=== PATIENT | male | born 1960 | race Caucasian/White ===

== ENCOUNTER 2023-10-22 15:11 | Inpatient (IN) | payer OTHER, BC, MEDICARE ==
[~2023-10-22] VITALS: Ht 167.6 cm; Wt 93.7 kg
[2023-10-22 15:30] LABS: Basophils # (auto) 0.1 10 ^3/uL (0-0.2); Basophils % (auto) 0.6 % (0.0-2.0); Eosinophils # (auto) 0 10 ^3/uL (0-0.8); Hemoglobin 15.4 g/dL (13.5-17.5); Lymphocytes # (auto) 2.4 10 ^3/uL (0.4-5.4); Monocytes # (auto) 0.8 10 ^3/uL (0-1.3)
[2023-10-22 15:34] LABS: Eosinophils % (auto) 0.3 % (0.0-7.0); Hematocrit 45.4 % (41.0-53.0); Mean Corpuscular Hemoglobin 31.3 pg (28.0-32.0); Mean Corpuscular Volume 92.1 fL (80.0-100.0); Neutrophils # (auto) 7.5 10 ^3/uL (1.6-8.6); Neutrophils % (auto) 70.1 % (37.0-80.0); Nucleated Red Blood Cells % 0.1 %; Red Blood Cells 4.92 10^6/uL (4.5-5.90); Red Cell Distribution Width 13.3 % (11.8-14.3); White Blood Cell 10.7 10^3/uL (4.4-10.8)
[2023-10-22 16:01] LABS: Alanine Aminotransferase 29 U/L (7-40); Albumin 5.2 g/dL (3.2-4.8); Alkaline Phosphatase 42 U/L (46-116); Anion Gap 12 (5-15); Aspartate Aminotransferase 27 U/L (13-40); BUN/Creatinine Ratio 6.6 (10.0-20.0); Bilirubin, Total 0.9 mg/dL (0.2-1.0); Blood Urea Nitrogen 7 mg/dL (9-23); Calcium 10.2 mg/dL (8.5-10.1); Carbon Dioxide 19 mmol/L (20-30); Chloride 107 mmol/L (98-107); Glucose 168 mg/dL (74-106); Potassium 3.5 mmol/L (3.5-5.1); Sodium 138 mmol/L (136-145); Total Protein 7.9 g/dL (5.7-8.2)
[2023-10-22 16:08] LABS: INR 1.08 (0.9-1.15); Partial Thromboplastin Time 28.5 SEC (24.5-34.5); Prothrombin Time 11.3 sec (9.3-11.8)
[2023-10-22] MEDS: IOHEXOL 350 MG/ML 100ML IJ ONE ×2 (17:14)
[2023-10-22] MEDS: MORPHINE SULFATE INJ 2 MG/ml SYRG IV ONE (19:49)
[2023-10-22] MEDS: ONDANSETRON HCL 4 MG/2 ML VIAL IV ONE (19:49)
[2023-10-23] VITALS (8 sets, daily range): BP systolic 130–156; BP diastolic 74–86; PULSE 67–81; RESP 16–18; TEMP 36.7; O2SAT 94–97
[2023-10-23] MEDS ORDERED: MORPHINE SULFATE INJ 2 MG/ml SYRG IV PRN (00:45)
[2023-10-23] MEDS ORDERED: NITROGLYCERIN 0.4 MG SL TAB SL PRN (00:45)
[2023-10-23] MEDS: MORPHINE SULFATE INJ 2 MG/ml SYRG IV PRN (02:37)
[2023-10-23] MEDS: SOD CHL 0.45% WITH 20MEQ KCL 1,000 ML IV ONE (02:42)
[2023-10-23] MEDS ORDERED: FENO1TAB41 PO (03:38)
[2023-10-23] MEDS ORDERED: ALOG1TAB2 PO (03:38)
[2023-10-23] MEDS ORDERED: NITR0.4S29 SL (03:38)
[2023-10-23] MEDS ORDERED: VALS1TAB58 PO (03:38)
[2023-10-23] MEDS ORDERED: CLON0.1T PO (03:38)
[2023-10-23] MEDS ORDERED: AMLO1TAB22 PO (03:38)
[2023-10-23] MEDS ORDERED: ATOR20TA PO (03:38)
[2023-10-23] MEDS ORDERED: OMEP20TA PO (03:38)
[2023-10-23] MEDS ORDERED: METO25TA93 PO (03:38)
[2023-10-23] MEDS ORDERED: PRA1C PO (03:38)
[2023-10-23] MEDS ORDERED: APIX5TAB PO (03:38)
[2023-10-23] MEDS ORDERED: QUET50TA PO (03:38)
[2023-10-23] MEDS ORDERED: METF-1145 PO (03:38)
[2023-10-23] MEDS ORDERED: GLIP5TAB12 PO (03:38)
[2023-10-23] MEDS ORDERED: INSU100I52 IJ (03:38)
[2023-10-23 06:13] LABS: Basophils # (auto) 0 10 ^3/uL (0-0.2); Basophils % (auto) 0.6 % (0.0-2.0); Eosinophils # (auto) 0.1 10 ^3/uL (0-0.8); Eosinophils % (auto) 1.5 % (0.0-7.0); Hematocrit 42.8 % (41.0-53.0); Hemoglobin 14.3 g/dL (13.5-17.5); Lymphocytes # (auto) 1.6 10 ^3/uL (0.4-5.4); Lymphocytes % (auto) 22.9 % (10.0-50.0); Mean Corpuscular Hgb Conc. 33.4 g/dL (32.0-36.0); Mean Corpuscular Volume 92.8 fL (80.0-100.0); Monocytes # (auto) 0.9 10 ^3/uL (0-1.3); Monocytes % (auto) 12.8 % (0.0-12.0); Neutrophils # (auto) 4.3 10 ^3/uL (1.6-8.6); Neutrophils % (auto) 62.2 % (37.0-80.0); Nucleated Red Blood Cells % 0.2 %; Red Blood Cells 4.62 10^6/uL (4.5-5.90); Red Cell Distribution Width 13.5 % (11.8-14.3)
[2023-10-23 06:14] LABS: Alanine Aminotransferase 24 U/L (7-40); Albumin 4.5 g/dL (3.2-4.8); Alkaline Phosphatase 35 U/L (46-116); Anion Gap 6 (5-15); Aspartate Aminotransferase 22 U/L (13-40); BUN/Creatinine Ratio 7.4 (10.0-20.0); Blood Urea Nitrogen 7 mg/dL (9-23); Calcium 9.6 mg/dL (8.5-10.1); Carbon Dioxide 25 mmol/L (20-30); Chloride 111 mmol/L (98-107); Cholesterol 129 mg/dL (< 200); Glucose 123 mg/dL (74-106); HDL Cholesterol 36 mg/dL (40-59); LDL Cholesterol 83 mg/dL (< 100); Potassium 3.7 mmol/L (3.5-5.1); Sodium 142 mmol/L (136-145); Triglycerides 105 mg/dL (< 150)
[2023-10-23 06:15] LABS: Bilirubin, Total 0.8 mg/dL (0.2-1.0); Phosphorus 3.2 mg/dL (2.4-5.1); Total Protein 6.7 g/dL (5.7-8.2)
[2023-10-23] MEDS: INSULIN LISPRO (HUMAN) 100 UNITS/ML ML SC SCH ×2 (06:17→22:00)
[2023-10-23] MEDS: ACCU-CHEK COMFORT CURVE STRIP VI SCH (06:17)
[2023-10-23] MEDS: FLUCONAZOLE 100 MG TAB PO SCH (09:35)
[2023-10-23] MEDS: cefTRIAXone 1GM/50ML D5W 50 ML IV SCH (09:35)
[2023-10-23] MEDS: APIXABAN 5 MG TAB PO SCH (09:36)
[2023-10-23] MEDS: VALSARTAN 80 MG TAB PO ONE ×2 (09:36→09:47)
[2023-10-23] MEDS: METOPROLOL SUCCINATE XL 50 MG TAB PO SCH (09:37)
[2023-10-23] MEDS: CLOTRIMAZOLE 1 % CREAM 15GM TOP SCH (10:49)
[2023-10-23] MEDS: HYDROcodone-ACET 5/325MG TAB PO PRN (17:25)
[2023-10-23] MEDS: ATORVASTATIN 20 MG TAB PO SCH (17:25)
[2023-10-24] VITALS (7 sets, daily range): BP systolic 124–151; BP diastolic 69–89; PULSE 61–72; RESP 16–20; TEMP 97.3–98.4; O2SAT 93–96
[2023-10-25] VITALS (7 sets, daily range): BP systolic 120–141; BP diastolic 60–76; PULSE 55–75; RESP 17–20; TEMP 97.4–98.3; O2SAT 93–98
[2023-10-25] MEDS ORDERED: MAALOX PLUS or MAALOX 30 ML PO PRN
[2023-10-25] MEDS: MAALOX PLUS or MAALOX 30 ML PO ONE (06:43)
[2023-10-25] MEDS: SUCRALFATE 1 GM TAB PO ONE (06:43)
[2023-10-25] MEDS: SUCRALFATE 1 GM TAB PO SCH (06:45)
[2023-10-25] MEDS: PANTOPRAZOLE 40 MG TAB PO SCH (09:52)
[2023-10-25] MEDS ORDERED: TAMS0.4C36 PO (16:46)
[2023-10-26 05:00] VITALS: BP 136/79; PULSE 58; RESP 17; TEMP 98; O2SAT 94
[2023-10-26 06:22] LABS: Basophils # (auto) 0.1 10 ^3/uL (0-0.2); Basophils % (auto) 0.9 % (0.0-2.0); Eosinophils # (auto) 0.2 10 ^3/uL (0-0.8); Eosinophils % (auto) 2.3 % (0.0-7.0); Hemoglobin 14.1 g/dL (13.5-17.5); Lymphocytes # (auto) 2.1 10 ^3/uL (0.4-5.4); Lymphocytes % (auto) 30.3 % (10.0-50.0); Mean Corpuscular Hemoglobin 31.7 pg (28.0-32.0); Mean Corpuscular Hgb Conc. 34.5 g/dL (32.0-36.0); Monocytes # (auto) 0.7 10 ^3/uL (0-1.3); Monocytes % (auto) 10.7 % (0.0-12.0); Neutrophils # (auto) 3.8 10 ^3/uL (1.6-8.6); Neutrophils % (auto) 55.8 % (37.0-80.0); Nucleated Red Blood Cells % 0.2 %; Red Blood Cells 4.46 10^6/uL (4.5-5.90); Red Cell Distribution Width 13.6 % (11.8-14.3); White Blood Cell 6.9 10^3/uL (4.4-10.8)
[2023-10-26 06:31] LABS: Alanine Aminotransferase 24 U/L (7-40); Albumin 4.2 g/dL (3.2-4.8); Alkaline Phosphatase 32 U/L (46-116); Anion Gap 10 (5-15); Aspartate Aminotransferase 18 U/L (13-40); BUN/Creatinine Ratio 9.5 (10.0-20.0); Bilirubin, Total 0.7 mg/dL (0.2-1.0); Blood Urea Nitrogen 9 mg/dL (9-23); Calcium 9.4 mg/dL (8.7-10.4); Carbon Dioxide 21 mmol/L (20-30); Chloride 109 mmol/L (98-107); Glucose 120 mg/dL (74-106); Lipase 38 U/L (12-53); Potassium 3.4 mmol/L (3.5-5.1); Sodium 140 mmol/L (136-145)
[2023-10-26 06:32] LABS: Total Protein 6.5 g/dL (5.7-8.2)
[2023-10-26 06:44] LABS: Amylase < 20 U/L (30-118)
[2023-10-26] MEDS ORDERED: PANT40T PO (06:44)
[2023-10-26] MEDS ORDERED: SUCR1TAB PO (06:44)
[2023-10-26] MEDS ORDERED: FLUC100T34 PO (06:44)
[2023-10-26] MEDS ORDERED: MAA30LQ GT (06:44)
[2023-10-26] MEDS ORDERED: METF-1145 PO (06:44)
[2023-10-26] MEDS ORDERED: APIX5TAB PO (06:44)
[2023-10-26] MEDS ORDERED: TAMS0.4C36 PO (06:44)
[2023-10-26] MEDS ORDERED: ATOR20TA PO (06:44)
[2023-10-26] MEDS ORDERED: VALS1TAB58 PO (06:44)
[2023-10-26 08:00] VITALS: PULSE 64; PULSE 67; RESP 20; O2SAT 98
[2023-10-26 08:39] VITALS: BP 129/67; PULSE 66
== END 2023-10-26 10:50 | disposition home or self-care (01) | DRG 203 ==
LOC: ER 15:11 → TELE-WESTW 10-23 00:48 → TELE 10-23 00:48 → TELE-WESTW 10-23 02:00
PROVIDERS: ADMIT Specialist; ATTEND Specialist
DX: J20.9 Acute bronchitis, unspecified (principal); R07.89 Other chest pain; K21.9 Gastro-esophageal reflux disease without esophagitis; M94.0 Chondrocostal junction syndrome [Tietze]; E11.9 Type 2 diabetes mellitus without complications; E88.819 Insulin resistance, unspecified; K44.9 Diaphragmatic hernia without obstruction or gangrene; E66.9 Obesity, unspecified; Z68.33 Body mass index [BMI] 33.0-33.9, adult; Z91.040 Latex allergy status; Z88.0 Allergy status to penicillin; Z79.84 Long term (current) use of oral hypoglycemic drugs; Z91.148 Patient's other noncompliance with medication regimen for other reason; Z91.118 Patient's noncompliance with dietary regimen for other reason; Z86.711 Personal history of pulmonary embolism
CPT/HCPCS: 36415; 71045; 71275; 76705; 80053; 80061; 82150; 82962; 83036; 83690; 83735; 83880; 84100; 84484; 85025; 85379; 85610; 85730; 93005; 93970; G0378; J1815

== ENCOUNTER 2024-09-19 20:47 | Inpatient (IN) | payer OTHER, BC, MEDICARE ==
[~2024-09-19] VITALS: Ht 33 cm; Wt 98.6 kg
[~2024-09-19 20:47] MED LIST: ALOG1TAB2 PO; AMLO1TAB22 PO; APIX5TAB PO; ATOR20TA PO; CLON0.1T PO; FENO1TAB41 PO; FLUC100T34 PO; GLIP5TAB21 PO; INSU100I52 IJ; MAA30LQ GT; METF-1145 PO; METO25TA93 PO; NITR0.4S29 SL; PANT40T PO; PRAZ1CAP2 PO; QUET50TA PO; SUCR1TAB PO; TAMS0.4C39 PO; VALS1TAB58 PO
[2024-09-19] MEDS ORDERED: NITROGLYCERIN 0.4 MG SL TAB SL PRN ×2 (22:30)
[2024-09-19] MEDS ORDERED: MORPHINE SULFATE INJ 2 MG/ml SYRG IV PRN (22:30)
[2024-09-19 22:45] VITALS: BP 149/90; PULSE 63; RESP 18; TEMP 97.8; O2SAT 97
[2024-09-19] MEDS ORDERED: HYDROmorphone HCL 2 MG/ML VL/or syr IV PRN ×2 (22:45)
[2024-09-19 22:47] VITALS: BP 149/90; PULSE 63; RESP 16; TEMP 97.8; O2SAT 97
--- NOTE | 2024-09-19 23:07 | DVHHP2 ---
Admitting Diagnosis: Left-sided Chest pains Recurrent dizziness History of Present Illness 64-year-old middle-aged white male with known history of hypertension, NIDDM Hypercholesterolemia, obesity, COPD and nonocclusive CAD is directly admitted For further eval and management of signs symptoms of nonexertional, non- referring left-sided lower chest pain-non referring, pretty much localized to L 7 thru 10 ICS- at times pleuritic-4 to 5/10 without symptoms of diaphoresis, nausea vomiting Over last 3-4 days. He also reports to have additional symptoms of recurrent dizziness which occurs all of sudden, while he is in sitting or standing posture, Makes him feel/fear about precipitous fall associated with facial pallor, diaphoresis and blurred vision over past 1 week. Patient is one more episode of presyncope this morning. He appeared to be pale diaphoretic and orthostasis. This am he had Intake of Januvia for management of diabetes. His hemoglobin A1c runs around 6.5% In order to avoid inadvertent effect of medications, he has been taken off from meds like Flomax, and prazosin. Besides all above, patient has has symptoms of recurrent Premature ventricular beats for which he was recommended medical treatment by Dr. Stallings. He has been prescribed flecainide by hospice volunteer coordinator at [facility]. He also consulted a hospice volunteer coordinator from [facility] who recommended him Ozempic for intentional weight loss. As per patient, he runs 3-4 miles x 2-3 per week. The patient is admitted for further evaluation of recurrent chest pains, dizziness and presyncope. Past Medical History Past Medical History: Past Medical History records reviewed Cardiovascular history : Long history of hypertension with recurrent angina 50% non occlusive disease of RCA - coronary angiogram-2023 and 2014 Premature ventricular beats- assessed by Dr. Higgins and cardiology of [facility] 2. Deep venous thrombosis Recent history of DVT affecting R brachiocephalic vein from angio cath Treated at 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 Milton orthopedist Psychiatric History : PTSD-anxiety mixed with depression Schizoaffective bipolar depression-receives psychotropic medication prescribed by physicians of the [facility] Past Surgical History Past Surgical History ROTATOR CUFF REPAIR R shoulder ACROMIOPLASTY, EXCISION OF THE DISTAL END CLAVICLE, LYSIS OFACHROMIAL LIGAMENT, DEBRIDEMENT/REPAIR OF THE LABRUM OF THE RIGHT SHOULDER Right 07/22/2021 Procedure: ROTATOR CUFF REPAIR ADHESIONS, BICEP TENOSYNOVECTOMY, Surgeon: Kiki Milton MD; Location: [facility] Bilateral SHOULDER ARTHROSCOPY- Left x 3 right x 4 SPINE SURGERY SACRAL LAMINOPLASTY AND MICROSURGICAL REPAIR OF TARLOV CYST SPINAL CORD UNTETHERING WITH AUTOLOGOUS FAT GRAFT AND DURAL DRAFTING at [place] Surgeon: Ange ? Resection of lipoma from upper back. ? Linnea filter placement in inferior vena cava 2006 Social History Socio economic status Retired , , lives with his spouse, permanently disabled From bilateral shoulder rotator cuff injuries Tobacco Use Smoking status: Smoker Passive exposure: Never Smokeless tobacco: Never Vaping Use Vaping status: Never Used Substance Use Topics Alcohol use: Yes Alcohol/week: Was used to be drinking seven beers a week, quit six months ago Drug use: Never Patient Family History: Eczema G8 FATHER Psoriasis G8 MOTHER Allergies: Coded Allergies: Ampicillin (Verified Allergy, Unknown, 10/22/23) Latex (Verified Allergy, Unknown, 10/22/23) Home Meds Active Scripts Metformin Hydrochloride (Metformin Hcl Er) 500 Mg Tab, 1 TAB PO BID for 30 Days, #60 TAB 2 Refills Hold if N/V/Diarrhea DO not drink alcohol- may cause life threatening lactic acidosis Prov:ROSIE JOHNSON MD 09/23/24 Alum & Mag Hydrox-Simethicone (Maalox Plus) 30 Ml Ss, 15 ML GT ACHS, #450 ML 2 Refills Prov:ROSIE JOHNSON MD 10/26/23 Sucralfate (Sucralfate) 1 Gm Tab, 1 GM PO QIDACHS for 30 Days, #120 TAB 1 Refill Prov:ROSIE JOHNSON MD 10/26/23 Pantoprazole Sodium Sesquihydr (Pantoprazole Sodium) 40 Mg Tab, 40 MG PO BID for 45 Days, #90 TAB Prov:ROSIE JOHNSON MD 10/26/23 Valsartan (Valsartan) 160 Mg Tab, 1 TAB PO BID for 30 Days, #60 TAB 2 Refills Hold if SBP <110 Call PMD if angioedema of lips Prov:ROSIE JOHNSON MD 10/26/23 Atorvastatin Calcium (Lipitor) 20 Mg Tab, 20 MG PO DAILY for 90 Days, #90 TAB Hold if calf muscle cramps Prov:ROSIE JOHNSON MD 10/26/23 Apixaban Base (ELIQUIS) 5 Mg Tab, 5 MG PO BID for 30 Days, #60 TAB 2 Refills Hold if internal bleeding Prov:ROSIE JOHNSON MD 10/26/23 Reported Medications Nitroglycerin (NTROSTAT SUBLINGUAL) 0.4 Mg Sl, 0.4 MG SL PRN PRN for FOR CHEST PAIN, TAB *MAY REPEAT EVERY 5 MINUTES X 3 TOTAL IF NO RELIEF, INITIATE ANALGESIC THERAPY. NOTIFY PHYSICIAN *Do not crush. 10/23/23 Clonidine Hydrochloride (Clonidine Hcl) 0.1 Mg Tab, 0.1 MG PO TID PRN for SBP>160, TAB 10/23/23 Quetiapine Fumerate (Seroquel) 50 Mg Tab, 25 MG PO DAILY, TAB 10/23/23 Metoprolol Succinate (Metoprolol Succinate Er) 25 Mg Tab, 1 TAB PO DAILY 10/23/23 Insulin Lispro (Insulin Lispro) 100 Unit/Ml Inj, 100 UNIT IJ UD, INJ 10/23/23 Glipizide (Glipizide) 5 Mg Tab, 5 MG PO QAM, TAB 10/23/23 Fenofibrate (Tricor) 48 Mg Tab, 48 MG PO BID, TAB 10/23/23 Amlodipine Besylate (Amlodipine Besylate) 5 Mg Tab, 1 TAB PO DAILY 10/23/23 Alogliptin Benzoate (Alogliptin) 25 Mg Tab, 25 MG PO DAILY 10/23/23 Discontinued Reported Medications Prazosin Hcl (Minipres) 1 Mg Cp, 2 MG PO, CAP 10/23/23 Discontinued Scripts Fluconazole (Fluconazole) 100 Mg Tab, 100 MG PO DAILY for 15 Days, #15 TAB Prov:ROSIE JOHNSON MD 10/26/23 Tamsulosin Hcl (Tamsulosin Hcl) 0.4 Mg Cap, 0.4 MG PO DAILY@DINNER for 30 Days, #30 CAP Hold if dizzy or SBP <100 Prov:ROSIE JOHNSON MD 10/26/23 Current Medications Review of Systems Constitutional: Denies easy tiredness, denies fever chills weight loss HEENT: Denies headache/conjunctival/ENT pains or congestion, Denies hoarse voice, hearing or visual deficit Neck: Denies cervical spine local/radicular pains, denies goiters/stridor Denies stiffness spasms, reduced ROM, RS: Denies chest congestion, cough, wheezing, SOB, pleuritic ch est pains CVS: Reports angina, irregular heartbeats, Denies SOB, edema, orthopnea, PND GI: Denies loss of appetite, abdominal pains, tenderness, N/V/D, Denies melena, GI bleeding,constipation, : Denies dysuria, flank pains, frequency, hematuria, Denies passing foul odor/cloudy turbid urine, nocturia MS: Denies generalized aches/pains, back pains, spasms, stiffness, Denies radicular pains, denies generalized myalgias/muscle weakness EXTs: Denies edema, rash, open wounds, discoloration, radicular pains NEURO: Recurrent dizziness Denies hypersomnolence, confused mental status, Denies focal weakness or seizures/tremors/myoclonic jerks SKIN: Denies rashes or open ulcerated wound ENDOCRINE: Denies polyuria, polydipsia, denies intolerance to heat and cold HEM/LYMPH: Denies easy tiredness, bruising, lymphadenopathy ALLERGY: Denies allergic reactions Psychiatry: Denies anxiety or depression disorder Otherwise the Review of Systems is Negative as per History & Physical Interview: Yes Vital Signs Vital Signs Date Time Temp Pulse Resp B/P (MAP) Pulse Ox O2 Delivery O2 Flow Rate FiO2 09/23/24 22:13 97.5 87 16 09/23/24 21:00 138/68 (91) 94 09/23/24 20:30 Room Air* 0 21 Physical Exam General appearance: Well-developed, obese built middle-aged white male Awake alert oriented x3 no respiratory d istress Head: Normocephalic nontraumatic Eyes: EOM- full, no nystagmus, no diplopia VALENTINO, sclera nonicteric, conjunctive- pale ENT: No congestion, NSL bilateral symmetrical, oral mucosa dry Neck: Supple, carotid upstroke +2, trachea midline, JVD-3 cm, C spine- Full ROM No thyroid or lymph node , no use of sternomastoid muscle Chest: Bilateral symmetrical expansions, L sided Costochondral tenderness Lungs: clear breath sounds all over except reduced at bases CVS: PMI-1 cm medial to L MCL in fifth ICS , S1- S2 NSR no S3 GI: Abdomen soft, obese, bowel sounds normoactive No focal tenderness, no rebound tenderness No hepatosplenomegaly, no mass no hernia , : No CVA tenderness, no bladder mass palpable, genitalia-NE SKIN: Turgor -dry, color pink, no rash, no icterus, No varicosity, no ulcers or wounds EXTs: No edema, color pink, no rash, no ecchymosis distal pulses +2 capillary refill <2 s econds, No open wounds JOINTS: Reduced range of motion at shoulders BACK: No apparent lumbosacral spinal muscle tenderness, LYMPH NODES: No cervical, axillary or inguinal lymph nodes Neuro: Awake alert oriented 4, coherent, all c ognitives- intact No pronator drift, no focal motor deficit, Changes of peripheral neuropathy [id number] dysmetria present, DTR +2, Gait- leans to the left, wide PSYCH: Affect mildly depressed-denies suicidal ideation Results Labs Test 09/23/24 21:43 09/23/24 19:38 09/23/24 05:58 09/21/24 05:24 Range/Units POC Glucose 118 H 70-106 mg/dl Sodium Level 139 136-145 mmol/L Potassium Level 3.7 3.5-5.1 mmol/L Chloride Level 107 98-107 mmol/L Carbon Dioxide Level 22 20-31 mmol/L Anion Gap 10 5-15 Blood Urea Nitrogen 5 L 9-23 mg/dL Creatinine 0.95 0.700-1.30 mg/dL Glomerular Filtration Rate Calc 90 >90 mL/min BUN/Creatinine Ratio 5.3 L 10.0-20.0 Serum Glucose 221 #H 74-106 mg/dL Calcium Level 10.2 8.7-10.4 mg/dL Total Bilirubin 0.7 0.2-1.0 mg/dL Aspartate Amino Transferase (AST) 17 13-40 U/L Alanine Aminotransferase (ALT) 16 7-40 U/L Alkaline Phosphatase 50 46-116 U/L Total Protein 6.2 5.7-8.2 g/dL Albumin 4.2 3.2-4.8 g/dL Phosphorus Level 3.9 2.4-5.1 mg/dL Magnesium Level 1.7 1.6-2.6 mg/dL Test 09/20/24 06:44 09/20/24 00:15 09/19/24 23:50 Range/Units White Blood Count 8.4 4.4-10.8 10^3/uL Red Blood Count 4.82 4.5-5.90 10^6/uL Hemoglobin 14.7 13.5-17.5 g/dL Hematocrit 42.9 41.0-53.0 % Mean Corpuscular Volume 89.0 80.0-100.0 fL Mean Corpuscular Hemoglobin 30.5 28.0-32.0 pg Mean Corpuscular Hemoglobin Concent 34.2 32.0-36.0 g/dL Red Cell Distribution Width 14.0 11.8-14.3 % Platelet Count 259 140-450 10^3/uL Mean Platelet Volume 7.9 6.9-10.8 fL Neutrophils (%) (Auto) 66.5 37.0-80.0 % Lymphocytes (%) (Auto) 21.0 10.0-50.0 % Monocytes (%) (Auto) 9.8 0.0-12.0 % Eosinophils (%) (Auto) 2.1 0.0-7.0 % Basophils (%) (Auto) 0.6 0.0-2.0 % Neutrophils # (Auto) 5.6 1.6-8.6 10 ^3/uL Lymphocytes # (Auto) 1.8 0.4-5.4 10 ^3/uL Monocytes # (Auto) 0.8 0-1.3 10 ^3/uL Eosinophils # (Auto) 0.2 0-0.8 10 ^3/uL Basophils # (Auto) 0 0-0.2 10 ^3/uL Nucleated Red Blood Cells 0.0 % Hemoglobin A1c 7.1 H <5.7 % A1C Troponin I High Sensitivity 21 </=54 ng/L Triglycerides Level 113 < 150 mg/dL Cholesterol Level 128 < 200 mg/dL LDL Cholesterol 71 < 100 mg/dL HDL Cholesterol 42 40-59 mg/dL Prothrombin Time 11.5 9.3-11.8 sec Prothrombin Time INR 1.09 0.9-1.15 Activated Partial Thromboplast Time 28.3 24.5-34.5 SEC D-Dimer, Quantitative < 0.19 0.0-0.49 mg/L FEU Amylase Level 22 L 30-118 U/L Lipase 47 12-53 U/L Thyroid Stimulating Hormone (TSH) 3.08 0.55-4.78 uIU/mL Urine Color Light-yellow Yellow Urine Clarity Clear Clear Urine pH 7.0 5.0-9.0 Urine Specific Rupert 1.010 1.001-1.035 Urine Protein Negative Negative Urine Ketones Negative Negative Urine Blood Negative Negative /uL Urine Nitrite Negative Negative Urine Bilirubin Negative Negative Urine Urobilinogen Normal Negative mg/dL Urine Leukocyte Esterase Negative Negative /uL Urine RBC <1 0 - 3 /hpf Urine Microscopic WBC 1 0-3 /HPF Urine Squamous Epithelial Cells None seen <5 /hpf Urine Bacteria None seen None Seen /hpf Urine Glucose Normal Normal mg/dL Primary Diagnosis 1. Acute chest pain -Rule out NH versus PE 2. Recurrent dizziness -rule out cerebellar CVA Rule out occlusive carotid artery disease Admitting Diagnosis: 1. Acute chest pain -Rule out NH versus PE 2. Recurrent dizziness -rule out cerebellar CVA Rule out occlusive carotid artery disease Inadvertent effect of medications Peripheral neuropathy 3. Recurrent presyncope 4. Recurrent premature ventricular beats 5. Hypovolemia 6. Fairly well-controlled NIDDM antihypertension 2' Diagnosis/Comorbidities Exogenous obesity Personal history of alcoholism Medical decision making: The patient appears to be clinically ill from symptom complex of Recurrent chest pains, dizziness and presyncope. The patient has known history of fairly well-controlled NIDDM, hypertension Hypercholesterolemia and obesity. His recent most cardiac catheterization and selective coronary angiogram 2023 was remarkable for 50-60% nonocclusive CAD-unchanged finding since prior coronary artery study 2014. This is suspected to have possible embolic event causing cerebellar dysfunction. He states when he walks, he leans toward left. Noted finger-nose dysmetria. Patient needs neuro imaging study evaluation. He is also noted to have hypovolemia orthostasis partly aggravated by Januvia. He needs IV hydration while discontinuing Januvia, prazosin Plan Admit to telemetry bed Order 2D echo and carotid artery duplex study Serial 12 lead EKG and serum troponins Recommend 0.4 mg SL NTG and Ecotrin Continue valsartan, flecainide and reduce dose of metoprolol IV morphine for anginal chest pain refractory to NTG Cautious IV hydration Continue Eliquis Accu-Chek q.a.c. and HS Humalog through sliding scale Reconcile home medications VTE precautions Update patient The patient and his spouse were well informed by me about 1. Clinical impression, treatment plans, side effects of medications, course of the disease and prognosis 2. All patient's question/ concerns raised by patient are satisfactorily addressed by me Total time spent 120 minutes 40% of time spent interviewing the patient and physical exam 30% of time spent in gathering lab datas and imaging studies 30 % of time is spent in patient education Plan discussed with: Patient, Spouse Code Visit Code Visit Total Time (mins): 120 ROSIE JOHNSON MD Sep 19, 2024 23:07
[2024-09-20] VITALS (10 sets, daily range): BP systolic 103–156; BP diastolic 62–93; PULSE 57–80; RESP 16–19; TEMP 97.5–98.3; O2SAT 94–98
[2024-09-20 00:45] LABS: Urine Bacteria None Seen /hpf (None Seen)
[2024-09-20 00:55] LABS: INR 1.09 (0.9-1.15); Partial Thromboplastin Time 28.3 SEC (24.5-34.5); Prothrombin Time 11.5 sec (9.3-11.8)
[2024-09-20 01:00] LABS: Alanine Aminotransferase 18 U/L (7-40); Albumin 4.4 g/dL (3.2-4.8); Alkaline Phosphatase 51 U/L (46-116); Anion Gap 10 (5-15); Aspartate Aminotransferase 15 U/L (13-40); BUN/Creatinine Ratio 7.5 (10.0-20.0); Bilirubin, Total 0.6 mg/dL (0.2-1.0); Calcium 10.3 mg/dL (8.7-10.4); Carbon Dioxide 21 mmol/L (20-31); Lipase 47 U/L (12-53); Phosphorus 3.4 mg/dL (2.4-5.1); Potassium 3.8 mmol/L (3.5-5.1); Sodium 140 mmol/L (136-145); Total Protein 6.9 g/dL (5.7-8.2)
[2024-09-20 01:03] LABS: Amylase 22 U/L (30-118); Blood Urea Nitrogen 6 mg/dL (9-23); Chloride 109 mmol/L (98-107); Glucose 111 mg/dL (74-106); Magnesium 1.4 mg/dL (1.6-2.6)
[2024-09-20 01:05] LABS: Urine Blood Negative /uL (Negative); Urine Clarity Clear (Clear); Urine Color Light-Yellow (Yellow); Urine Protein, UAD Negative (Negative); Urine Squamous Epithelial Cell None Seen /hpf (<5); Urine Urobilinogen Normal (Negative); Urine WBC 1 /HPF (0-3)
[2024-09-20 01:26] LABS: Basophils # (auto) 0.1 10 ^3/uL (0-0.2); Basophils % (auto) 1.2 % (0.0-2.0); Eosinophils # (auto) 0.2 10 ^3/uL (0-0.8); Hematocrit 41.5 % (41.0-53.0); Lymphocytes # (auto) 2.6 10 ^3/uL (0.4-5.4); Lymphocytes % (auto) 32.8 % (10.0-50.0); Mean Corpuscular Hemoglobin 30.4 pg (28.0-32.0); Mean Corpuscular Hgb Conc. 33.8 g/dL (32.0-36.0); Mean Corpuscular Volume 89.9 fL (80.0-100.0); Monocytes # (auto) 0.8 10 ^3/uL (0-1.3); Neutrophils # (auto) 4.3 10 ^3/uL (1.6-8.6); Nucleated Red Blood Cells % 0.1 %; Platelet Count (auto) 258 10^3/uL (140-450); Red Blood Cells 4.62 10^6/uL (4.5-5.90); Red Cell Distribution Width 14.1 % (11.8-14.3)
[2024-09-20] MEDS: SOD CHL 0.45% 1,000 ML IV SCH (01:40)
[2024-09-20] MEDS: SUCRALFATE 1 GM TAB PO SCH (06:38)
[2024-09-20] MEDS: glipiZIDE 5 MG TAB PO SCH (06:38)
[2024-09-20] MEDS: MAALOX PLUS or MAALOX 30 ML GT SCH (06:49)
[2024-09-20] MEDS: INSULIN LISPRO (HUMAN) 100 UNITS/ML ML SC SCH ×2 (06:51→21:33)
[2024-09-20] MEDS ORDERED: ALUM & MAG HYDROX-SIMETH LIQ(MAALOX) 30 ML GT SCH ×2 (07:00)
[2024-09-20 07:42] LABS: Alanine Aminotransferase 18 U/L (7-40); Albumin 4.6 g/dL (3.2-4.8); Alkaline Phosphatase 50 U/L (46-116); Anion Gap 11 (5-15); Aspartate Aminotransferase 18 U/L (13-40); BUN/Creatinine Ratio 8.6 (10.0-20.0); Basophils # (auto) 0 10 ^3/uL (0-0.2); Basophils % (auto) 0.6 % (0.0-2.0); Bilirubin, Total 0.9 mg/dL (0.2-1.0); Calcium 10.2 mg/dL (8.7-10.4); Carbon Dioxide 21 mmol/L (20-31); Chloride 107 mmol/L (98-107); Cholesterol 128 mg/dL (< 200); Eosinophils # (auto) 0.2 10 ^3/uL (0-0.8); Eosinophils % (auto) 2.1 % (0.0-7.0); HDL Cholesterol 42 mg/dL (40-59); Hematocrit 42.9 % (41.0-53.0); Hemoglobin 14.7 g/dL (13.5-17.5); LDL Cholesterol 71 mg/dL (< 100); Lymphocytes # (auto) 1.8 10 ^3/uL (0.4-5.4); Mean Corpuscular Hemoglobin 30.5 pg (28.0-32.0); Mean Corpuscular Hgb Conc. 34.2 g/dL (32.0-36.0); Monocytes # (auto) 0.8 10 ^3/uL (0-1.3); Monocytes % (auto) 9.8 % (0.0-12.0); Neutrophils # (auto) 5.6 10 ^3/uL (1.6-8.6); Neutrophils % (auto) 66.5 % (37.0-80.0); Platelet Count (auto) 259 10^3/uL (140-450); Potassium 3.9 mmol/L (3.5-5.1); Red Blood Cells 4.82 10^6/uL (4.5-5.90); Sodium 139 mmol/L (136-145); Total Protein 6.7 g/dL (5.7-8.2); Triglycerides 113 mg/dL (< 150); White Blood Cell 8.4 10^3/uL (4.4-10.8)
[2024-09-20 07:52] LABS: Blood Urea Nitrogen 7 mg/dL (9-23); Glucose 147 mg/dL (74-106)
[2024-09-20] MEDS: VALSARTAN 80 MG TAB PO SCH ×2 (08:12→17:02)
--- NOTE | 2024-09-20 09:07 | DVH ---
CHEST RADIOGRAPH Indication: Evaluate for pneumonia Technique: Frontal and lateral view of the chest was obtained Comparison: None FINDINGS: Lines and Tubes: None Lungs: Clear Pleura: No effusion. No pneumothorax. Cardiomediastinal contours: Unremarkable Bones: Unremarkable IMPRESSION: No evidence of acute disease.
[2024-09-20] MEDS: FLECAINIDE ACETATE 50 MG TAB PO SCH (10:21)
[2024-09-20] MEDS: APIXABAN 5 MG TAB PO SCH (10:22)
[2024-09-20] MEDS: PANTOPRAZOLE 40 MG TAB PO SCH (10:22)
[2024-09-20] MEDS: ATORVASTATIN 20 MG TAB PO SCH (10:22)
[2024-09-20] MEDS: QUEtiapine FUMARATE 25 MG TAB PO SCH (10:23)
[2024-09-20] MEDS: amLODIPine BESYLATE 5 MG TAB PO SCH (10:25)
--- NOTE | 2024-09-20 13:49 | DVH ---
CAROTID ARTERIAL DOPPLER CLINICAL HISTORY: Dizziness TECHNIQUE: Doppler study of bilateral carotid/vertebral arteries were performed. Comparison: None FINDINGS: There are mild nonocclusive atheromatous plaques in the bilateral carotid bulbs and proximal iCAs. Th e bilateral common carotid, external and internal carotid arteries appear patent without hemodynamica lly significant stenosis. The spectral wave forms and peak systolic velocities are within normal mattson its. Antegrade flow is present within the vertebral arteries with appropriate velocities and waveforms. Right ICA/CCA PSV ratio = 1.2. Left ICA/CCA PSV ratio = 0.8 . IMPRESSION: 1. No hemodynamically significant stenosis within the carotid arteries. HS:Y
--- NOTE | 2024-09-20 16:03 | DVHSR ---
APPROVED REPORT EXAM: Two-dimensional and M-mode echocardiogram with Doppler and color Doppler. Blood Pressure: 141/93 mmHg INDICATION Chest Pain RISK FACTORS Height: 5'6", Weight: 210 DIMENSIONS LVDd5.1 (3.8-5.7cm)LA (2D)3.1 (1.9-4.0cm)Aortic Root3.9 (2.0-3.7cm) LVDs3.6 (2.5-4.0cm)LA (MM) (1.9-4.0cm)Aortic Cusp Exc2.2 (1.5-2.0cm) EF (%) 54.0 (55-70%)Rt. Atrium3.8 (1.9-4.0cm)Asc. Aorta3.3 cm IVSd1.0 (0.7-1.1cm)RV (D)3.3 (1.8-2.4cm) PWd0.8 (0.7-1.1cm) Mitral Valve MitralMitral Stenosis E wave0.62m/sMV Mean GR.mmHg A wave0.65m/sMV Peak GR.mmHg E/A ratio1.02D MVAcm2 DECEL [id number] 1/2 Timems Aortic Valve Aortic ValveAortic Stenosis V10.91m/Lavelle Mean GR.4mmHg V21.30m/[place]elle Peak GR.7mmHg LVOT Diameter2.2 (1.8-2.4cm)Doppler AVA2.66cm2 Pulmonic Valve V20.96m/s Other Information Quality : Technically LimitedRhythm : Technically limited study due to body habitus. Conclusion Sinus rhythm. Mild RV enlargement. Mild aortic root enlargement. Valves are normal. EF of 60% with normal RV function. Moderate pulmonic insufficiency. Moderate tricuspid regurgitation. No pericardial effusion masses or vegetations
--- NOTE | 2024-09-20 22:59 | DVHPN2 ---
Progress Note - Dictate Date Seen: Sep 20, 2024 Has the PT tested + for MRSA If YES, has PT been informed?: No Medical Necessity Reason Pt with a Central, PICC or Fol: No Medical Necessity Reason Evaluation of recurrent dizziness, presyncope and chest pains 2D echo exam, carotid artery duplex study IV hydration and telemetry observation Subjective The patient is currently being evaluated for symptom complex of left-sided chest pain, Recurrent dizziness and presyncope * Noted symptoms of bradycardia with heart rate low at 40 per minute * Received 2D echo as well as carotid artery duplex study * Results of which are reviewed with the patient Overnight events are reviewed through medical chart and case discussion with patient's assigned RN while making rounds on patient on the day of service vital signs Vital Sign Date Time Temp Pulse Resp B/P (MAP) Pulse Ox O2 Delivery O2 Flow Rate FiO2 09/20/24 21:00 97.7 57 19 126/65 (85) 98 97.7 09/20/24 20:00 Room Air* 0 21 Total Intake and Output 09/19/24 09/19/24 09/20/24 15:00 23:00 07:00 Intake Total 600 ml Balance 600 ml medications Current Medications Medications Dose Ordered Sig/Popeye Route Start Time Stop Time Status Last Admin Dose Admin Nitroglycerin 0.4 mg Q5MINP PRN SL 09/19/24 22:30 Morphine Sulfate 2 mg Q30M PRN IV 09/19/24 22:30 Amlodipine Besylate 2.5 mg DAILY PO 09/20/24 10:00 09/20/24 10:25 2.5 MG Apixaban 5 mg BID PO 09/20/24 10:00 09/20/24 21:29 5 MG Atorvastatin Calcium 20 mg DAILY PO 09/20/24 10:00 09/20/24 10:22 20 MG Clonidine HCl 0.1 mg Q8HP PRN PO 09/19/24 22:30 Glipizide 5 mg QAM PO 09/20/24 07:00 09/20/24 06:38 5 MG Pantoprazole Sodium 40 mg BID PO 09/20/24 10:00 09/20/24 21:29 40 MG Sucralfate 1 gm QIDACHS PO 09/20/24 07:00 09/20/24 21:29 1 GM Patient Own Medication 25 mg DAILY PO 09/20/24 10:00 Insulin Human Lispro AC SC 09/20/24 07:00 Insulin Human Lispro HS SC 09/20/24 22:00 09/20/24 21:33 4 UNITS Valsartan 160 mg DAILY@DINNER PO 09/20/24 17:30 09/20/24 17:02 160 MG Valsartan 80 mg DAILY@BREAKFAST PO 09/20/24 08:00 09/20/24 08:12 80 MG Flecainide Acetate 50 mg Q12HR PO 09/20/24 10:00 09/20/24 21:29 50 MG Quetiapine Fumarate 25 mg BID PO 09/20/24 10:00 09/20/24 21:29 25 MG Sodium Chloride 1,000 ml @ 50 mls/hr Q20H IV 09/19/24 22:45 09/20/24 18:58 50 MLS/HR Hydromorphone HCl 0.5 mg Q4HPRN PRN IV 09/19/24 22:45 Hydromorphone HCl 0.8 mg Q4HP PRN IV 09/19/24 22:45 Al Hydrox/Mg Hydrox/Simethicone 15 ml ACHS GT 09/20/24 07:00 09/20/24 21:30 15 ML objective General appearance: Well-developed, obese built middle-aged white male Awake alert oriented x3 no respiratory distress Head: Normocephalic nontraumatic Eyes: EOM- full, no nystagmus, no diplopia VALENTINO, sclera nonicteric, conjunctive- pale ENT: No congestion, NSL bilateral symmetrical, oral mucosa dry Neck: Supple, carotid upstroke +2, trachea midline, JVD-3 cm, C spine- Full ROM No thyroid or lymph node , no use of sternomastoid muscle Chest: Bilateral symmetrical expansions, L sided Costochondral tenderness at 7th through 9th ics Lungs: clear breath sounds all over except reduced at bases CVS: PMI-1 cm medial to L MCL in fifth ICS , S1-S2 NSR no S3 GI: Abdomen soft, obese, bowel sounds normoactive No focal tenderness, no rebound tenderness No hepatosplenomegaly, no mass no hernia , : No CVA tenderness, no bladder mass palpable, genitalia-NE SKIN: Turgor -dry, color pink, no rash, no icterus, No varicosity, no ulcers or wounds EXTs: No edema, color pink, no rash, no ecchymosis distal pulses +2 capillary refill <2 seconds, No open wounds JOINTS: Reduced range of motion at shoulders BACK: No apparent lumbosacral spinal muscle tenderness, LYMPH NODES: No cervical, axillary or inguinal lymph nodes Neuro: Awake alert oriented 4, coherent, all cognitives- intact No pronator drift, no focal motor deficit, Changes of peripheral neuropathy [id number] dysmetria present, DTR +2, Gait- leans to the left, wide laboratory and microbiology Laboratory Tests 09/20/24 06:44 Test 09/20/24 06:44 Range/Units Serum Glucose 147 H 74-106 mg/dL ORDERING PHYSICIAN: ROSIE JOHNSON MD PROCEDURE(s): ECIDC - ECHO 2D MODE CARDIAC DOP REASON: Chest pains ORDER NUMBER(s): [id number], ACCESSION NUMBER(s): [id number] APPROVED REPORT EXAM: Two-dimensional and M-mode echocardiogram with Doppler and color Doppler. Blood Pressure: 141/93 mmHg INDICATION Chest Pain RISK FACTORS Height: 5'6", Weight: 210 DIMENSIONS LVDd 5.1 (3.8-5.7cm) LA (2D) 3.1 (1.9-4.0cm) Aortic Root 3.9 (2.0- 3.7cm) LVDs 3.6 (2.5-4.0cm) LA (MM) (1.9-4.0cm) Aortic Cusp Exc 2.2 (1.5- 2.0cm) EF (%) 54.0 (55-70%) Rt. Atrium 3.8 (1.9-4.0cm) Asc. Aorta 3.3 cm IVSd 1.0 (0.7-1.1cm) RV (D) 3.3 (1.8-2.4cm) PWd 0.8 (0.7-1.1cm) Mitral Valve Mitral Mitral Stenosis E wave 0.62m/s MV Mean GR. mmHg A wave 0.65m/s MV Peak GR. mmHg E/A ratio 1.0 2D MVA cm2 DECEL Time 204ms PRESS 1/2 Time ms Aortic Valve Aortic Valve Aortic Stenosis V1 0.91m/s AO Mean GR. 4mmHg V2 1.30m/s AO Peak GR. 7mmHg LVOT Diameter 2.2 (1.8-2.4cm) Doppler BREA 2.66cm2 Pulmonic Valve V2 0.96m/s Other Information Quality : Technically Limited Rhythm : Technically limited study due to body habitus. Conclusion Sinus rhythm. Mild RV enlargement. Mild aortic root enlargement. Valves are normal. EF of 60% with normal RV function. Moderate pulmonic insufficiency. Moderate tricuspid regurgitation. No pericardial effusion masses or vegetations SIGNED BY: DERICK ROMO Sr., MD SIGNED DATE/TIME: 09/20/24 1603 ORDERING PHYSICIAN: ROSIE JOHNSON MD PROCEDURE(s): CARCL - CAROTID DUPLX W COLOR DOP REASON: Dizziness ORDER NUMBER(s): [id number], ACCESSION NUMBER(s): [id number] CAROTID ARTERIAL DOPPLER CLINICAL HISTORY: Dizziness TECHNIQUE: Doppler study of bilateral carotid/vertebral arteries were performed. Comparison: None FINDINGS: There are mild nonocclusive atheromatous plaques in the bilateral carotid bulbs and proximal iCAs. The bilateral common carotid, external and internal carotid arteries appear patent without hemodynamically significant stenosis. The spectral wave forms and peak systolic velocities are within normal limits. Antegrade flow is present within the vertebral arteries with appropriate velocities and waveforms. Right ICA/CCA PSV ratio = 1.2. Left ICA/CCA PSV ratio = 0.8 . IMPRESSION: 1. No hemodynamically significant stenosis within the carotid arteries. HS:Y Problem List 1. Acute chest pain -Ruled out ID -rule out PE 2. Recurrent dizziness -rule out cerebellar CVA Rule out occlusive carotid artery disease Inadvertent effect of medications Peripheral neuropathy 3. Recurrent presyncope 4. Recurrent premature ventricular beats 5. Hypovolemia 6. Fairly well-controlled NIDDM antihypertension 2' Diagnosis/Comorbidities Exogenous obesity Personal history of alcoholism Assessment/Plan Medical decision making: The patient is currently being evaluated for symptom complex of Recurrent chest pains, dizziness and presyncope. * Serial EKGs/enzymes have ruled acute ID * His recent most cardiac catheterization and selective coronary angiogram 2022 was remarkable for 50-60% nonocclusive RCA CAD -relatively unchanged finding since 2014 * 2D echo exam-normal EF 60%, normal RV function, Moderate TR * Patient continues to have pleuritic chest pains * High risk to develop pulmonary embolism and DVTs * Recommended patient to receive CTA chest * For recurrent dizziness, patient needs neuroimaging study eval * For hypovolemia/orthostasis, continued on IV hydration * All offending medications aggravating hypotension have been discontinued Treatment plans Continue hospital stay at telemetry bed Order CTA chest Reviewed results of Serial 12 lead EKG and serum troponins with patient Reviewed results of 2D echo and carotid artery duplex study with patient Continued patient on 0.4 mg SL NTG and Ecotrin Continue patient on valsartan, flecainide and reduce dose of metoprolol IV morphine for anginal chest pain refractory to NTG Cautious IV hydration Continue Eliquis Accu-Chek q.a.c. and HS Humalog through sliding scale Reconcile home medications VTE precautions Updated patient The patient and his spouse were well informed by me about 1. Clinical impression, treatment plans, side effects of medications, course of the disease and fair prognosis 2. All patient's question/ concerns raised by patient are satisfactorily addressed by me Total time spent 45 minutes 40% of time spent interviewing the patient and physical exam 30% of time spent in gathering lab datas and imaging studies 30 % of time is spent in patient education Plan discussed with: Patient, Spouse Total Time (mins): 45 ROSIE JOHNSON MD Sep 20, 2024 22:59
[2024-09-20] MEDS ORDERED: ATROPINE SULF 1 MG/10ml SYR IV PRN (23:00)
[2024-09-21] VITALS (9 sets, daily range): BP systolic 104–150; BP diastolic 59–76; PULSE 54–64; RESP 16–19; TEMP 97.4–97.9; O2SAT 91–98
[2024-09-21 06:46] LABS: Anion Gap 10 (5-15); Carbon Dioxide 22 mmol/L (20-31); Potassium 3.7 mmol/L (3.5-5.1); Sodium 139 mmol/L (136-145)
[2024-09-21 06:48] LABS: Chloride 107 mmol/L (98-107)
[2024-09-21 06:52] LABS: BUN/Creatinine Ratio 8.9 (10.0-20.0)
[2024-09-21 06:53] LABS: Magnesium 1.7 mg/dL (1.6-2.6)
[2024-09-21 06:54] LABS: Phosphorus 3.9 mg/dL (2.4-5.1)
[2024-09-21 06:56] LABS: Blood Urea Nitrogen 7 mg/dL (9-23); Glucose 134 mg/dL (74-106)
--- NOTE | 2024-09-21 12:34 | DVH ---
CTA Chest with intravenous contrast INDICATION: r/o PE COMPARISON: CT CT ANGIO CHEST CONTRAST on DOS: 10/22/23 TECHNIQUE: Multidetector spiral CTA of the chest was performed of the chest with intravenous contrast . PULMONARY ANGIOGRAPHY PROTOCOL was utilized using a bolus-tracking technique centered on the main p ulmonary artery. Axial, coronal and sagittal multiplanar and MIP reformats were performed. CONTRAST: Type of contrast: Omni 350 Contrast injected: 100 ml Radiation dose : Chest: CTDI volume is 42 mGy. Dose-length product is 969.09 mGy*cm The dose indicators for CT are the volume computed Tomography (CT) dose Index (CTDIvol) and the dose Length product (DLP), and are measured in units of mGy and mGy-cm, respectively. These indicators are not patient dose, but values generated from the CT scanner acquisition factors. The report includes radiation exposure data for exposures received during this examination. Findings: Pulmonary artery: No pulmonary embolism Lower neck: Normal thyroid. Lungs: No focal consolidation, pleural effusion or pneumothorax. Calcified granuloma left lower lung. Heart/Vascular Structures: Normal heart size. No pericardial effusion. Lymph Nodes: Calcified mediastinal and hilar lymph nodes. Pleura: No pleural effusion or significant pneumothorax. Musculoskeletal: No acute osseous abnormality. Soft tissues: Normal. Upper abdomen: Subcentimeter hepatic cyst. IMPRESSION: 1. No pulmonary embolism. 2. Evidence of prior granulomatous disease. No suspicious nodule or consolidation. HS:Y
--- NOTE | 2024-09-21 22:28 | DVHPN2 ---
Progress Note - Dictate Date Seen: Sep 21, 2024 Has the PT tested + for MRSA If YES, has PT been informed?: No Medical Necessity Reason Pt with a Central, PICC or Fol: No Medical Necessity Reason Evaluation of recurrent dizziness, presyncope and chest pains CTA chest Subjective The patient is currently being evaluated for symptom complex of left-sided chest pain, Recurrent dizziness and presyncope * His serial EKGs enzymes are unremarkable for acute TN * Recommended patient to receive CTA chest * Noted improvement in symptoms of bradycardia with heart rate low at 40 per minute * Reviewed results of 2D echo as well as carotid artery duplex study Overnight events are reviewed through medical chart and case discussion with patient's assigned RN while making rounds on patient on the day of service vital signs Vital Sign Date Time Temp Pulse Resp B/P (MAP) Pulse Ox O2 Delivery O2 Flow Rate FiO2 09/21/24 21:00 97.5 59 17 133/76 (95) 93 97.5 09/21/24 20:00 Room Air* 0 21 Total Intake and Output 09/20/24 09/20/24 09/21/24 15:00 23:00 07:00 Intake Total 1200 ml 600 ml Output Total 1000 ml Balance 200 ml 600 ml medications Current Medications Medications Dose Ordered Sig/Popeye Route Start Time Stop Time Status Last Admin Dose Admin Nitroglycerin 0.4 mg Q5MINP PRN SL 09/19/24 22:30 Apixaban 5 mg BID PO 09/20/24 10:00 09/21/24 21:55 5 MG Atorvastatin Calcium 20 mg DAILY PO 09/20/24 10:00 09/21/24 09:30 20 MG Clonidine HCl 0.1 mg Q8HP PRN PO 09/19/24 22:30 Glipizide 5 mg QAM PO 09/20/24 07:00 09/21/24 06:15 5 MG Pantoprazole Sodium 40 mg BID PO 09/20/24 10:00 09/21/24 21:55 40 MG Sucralfate 1 gm QIDACHS PO 09/20/24 07:00 09/21/24 21:55 1 GM Patient Own Medication 25 mg DAILY PO 09/20/24 10:00 Insulin Human Lispro AC SC 09/20/24 07:00 Insulin Human Lispro HS SC 09/20/24 22:00 09/21/24 22:02 2 UNITS Valsartan 160 mg DAILY@DINNER PO 09/20/24 17:30 09/21/24 17:00 160 MG Valsartan 80 mg DAILY@BREAKFAST PO 09/20/24 08:00 09/21/24 07:56 80 MG Flecainide Acetate 50 mg Q12HR PO 09/20/24 10:00 09/21/24 21:54 50 MG Quetiapine Fumarate 25 mg BID PO 09/20/24 10:00 09/21/24 21:55 25 MG Sodium Chloride 1,000 ml @ 50 mls/hr Q20H IV 09/19/24 22:45 09/21/24 13:40 50 MLS/HR Hydromorphone HCl 0.5 mg Q4HPRN PRN IV 09/19/24 22:45 Hydromorphone HCl 0.8 mg Q4HP PRN IV 09/19/24 22:45 Al Hydrox/Mg Hydrox/Simethicone 15 ml ACHS GT 09/20/24 07:00 09/21/24 21:55 15 ML Atropine Sulfate 0.5 mg Q15MP PRN IV 09/20/24 23:00 Amlodipine Besylate 5 mg DAILY PO 09/22/24 10:00 objective General appearance: Well-developed, obese built middle-aged white male Awake alert oriented x3 no respiratory distress Head: Normocephalic nontraumatic Eyes: EOM- full, no nystagmus, no diplopia VALENTINO, sclera nonicteric, conjunctive- pale ENT: No congestion, NSL bilateral symmetrical, oral mucosa wet Neck: Supple, carotid upstroke +2, trachea midline, JVD-3 cm, C spine- Full ROM No thyroid or lymph node , no use of sternomastoid muscle Chest: Bilateral symmetrical expansions, L sided Costochondral tenderness-improving Lungs: clear breath sounds all over except reduced at bases CVS: PMI-1 cm medial to L MCL in fifth ICS , S1- S2 NSR no S3 GI: Abdomen soft, obese, bowel sounds normoactive No focal tenderness, no rebound tenderness No hepatosplenomegaly, no mass no hernia , : No CVA tenderness, no bladder mass palpable, genitalia-NE SKIN: Turgor -improving, color pink, no rash, no icterus, No varicosity, no ulcers or wounds EXTs: No edema, color pink, no rash, no ecchymosis distal pulses +2 capillary refill <2 seconds, No open wounds JOINTS: Reduced range of motion at shoulders BACK: No apparent lumbosacral spinal muscle tenderness, LYMPH NODES: No cervical, axillary or inguinal lymph nodes Neuro: Awake alert oriented 4, coherent, all cognitives- intact No pronator drift, no focal motor deficit, Changes of peripheral neuropathy [id number] dysmetria present, DTR +2, Gait- leans to the left, wide PSYCH: Affect mildly depressed-denies suicidal ideation laboratory and microbiology Laboratory Tests 09/21/24 05:24 09/20/24 06:44 Test 09/21/24 05:24 Range/Units Serum Glucose 134 H 74-106 mg/dL ORDERING PHYSICIAN: ROSIE JOHNSON MD PROCEDURE(s): CTACH - CT ANGIO CHEST CONTRAST REASON: r/o PE ORDER NUMBER(s): [id number], ACCESSION NUMBER(s): [id number] CTA Chest with intravenous contrast INDICATION: r/o PE COMPARISON: CT CT ANGIO CHEST CONTRAST on DOS: 10/22/23 TECHNIQUE: Multidetector spiral CTA of the chest was performed of the chest with intravenous contrast. PULMONARY ANGIOGRAPHY PROTOCOL was utilized using a bolus- tracking technique centered on the main pulmonary artery. Axial, coronal and sagittal multiplanar and MIP reformats were performed. CONTRAST: Type of contrast: Omni 350 Contrast injected: 100 ml Radiation dose : Chest: CTDI volume is 42 mGy. Dose-length product is 969.09 mGy*cm The dose indicators for CT are the volume computed Tomography (CT) dose Index (CTDIvol) and the dose Length product (DLP), and are measured in units of mGy and mGy-cm, respectively. These indicators are not patient dose, but values generated from the CT scanner acquisition factors. The report includes radiation exposure data for exposures received during this examination. Findings: Pulmonary artery: No pulmonary embolism Lower neck: Normal thyroid. Lungs: No focal consolidation, pleural effusion or pneumothorax. Calcified granuloma left lower lung. Heart/Vascular Structures: Normal heart size. No pericardial effusion. Lymph Nodes: Calcified mediastinal and hilar lymph nodes. Pleura: No pleural effusion or significant pneumothorax. Musculoskeletal: No acute osseous abnormality. Soft tissues: Normal. Upper abdomen: Subcentimeter hepatic cyst. IMPRESSION: 1. No pulmonary embolism. 2. Evidence of prior granulomatous disease. No suspicious nodule or consolidation. HS:Y ATED BY: ARAM SHAIKH MD DICTATED DATE/TIME: 09/21/24 1232 Problem List 1. Acute chest pain -Rule out TN versus PE * Serial EKGs enzymes are unremarkable for acute TN * CTA chest unremarkable for pulmonary embolism * Known history of hiatal hernia which could be cause for LL cage pain 2. Recurrent dizziness -multifactorial -hypovolemia -inadvertent effect of multiple medications such as Flomax, Januvia, prazosin Flecainide -rule out cerebellar CVA Recommend neuroimaging evaluation 3. Bradycardia Predominantly from inadvertent effect of metoprolol Partly due to athletic exercises 4. Fairly Well-controlled diabetes and hypertension Assessment/Plan Medical decision making * Overall patient's hemodynamic condition remains clinically stable * Seems to be recovering from symptoms of chest pain dizziness * Reviewed results of carotid artery duplex study, 2D echo and CTA chest * Noted fairly well-controlled NIDDM and hypertension * Reviewed inadvertent effect of medications Treatment plans 1. Continue hospital stay at telemetry bed 2. Consider neuroimaging evaluation 3. Reviewed results of CTA chest, 2D echo, carotid artery duplex study 4. Continue IV hydration 5. Continue valsartan and amlodipine 6. Continue Accu-Chek and insulin through the 7. Check BMP in the morning 8. Consider discharge next 24 hours 9. Up and out of bed as tolerated 10. VTE precautions Update patient The patient and were well informed by me about 1. Clinical impression, treatment plans, side effects of medications, course of the disease and prognosis 2. All patient's question/ concerns raised by patient are satisfactorily addressed by me Total time spent 45 minutes 40% of time spent interviewing the patient and physical exam 30% of time spent in gathering lab datas and imaging studies 30 % of time is spent in patient education Prognosis Fair Dietary Evaluation Review Recommendations by RD: Decrease Calorie Intake Comments: Recommended intentional weight loss of 50 lb Expected Outcomes/Goals: To help avoid obesity related comorbidities Interpretation of weight loss: up to 5% in 1 month Plan discussed with: Patient, Spouse Total Time (mins): 45 ROSIE JOHNSON MD Sep 21, 2024 22:28
[2024-09-22] VITALS (8 sets, daily range): BP systolic 120–155; BP diastolic 62–76; PULSE 55–96; RESP 17–20; TEMP 97.5–98.1; O2SAT 93–97
[2024-09-22 09:09] LABS: Alanine Aminotransferase 20 U/L (7-40); Alkaline Phosphatase 59 U/L (46-116); Anion Gap 11 (5-15); Aspartate Aminotransferase 21 U/L (13-40); BUN/Creatinine Ratio 8.4 (10.0-20.0); Bilirubin, Total 0.8 mg/dL (0.2-1.0); Carbon Dioxide 21 mmol/L (20-31); Chloride 106 mmol/L (98-107); Potassium 3.8 mmol/L (3.5-5.1); Sodium 138 mmol/L (136-145); Total Protein 7.3 g/dL (5.7-8.2)
[2024-09-22 09:13] LABS: Albumin 4.9 g/dL (3.2-4.8); Blood Urea Nitrogen 8 mg/dL (9-23); Glucose 168 mg/dL (74-106)
[2024-09-22 09:35] LABS: Calcium 10.4 mg/dL (8.7-10.4)
[2024-09-22] MEDS: amLODIPine BESYLATE 5 MG TAB PO SCH (09:43)
[2024-09-22] MEDS: cloNIDine HCL 0.1 MG TAB PO PRN (10:05)
--- NOTE | 2024-09-22 11:14 | DVH ---
MRI BRAIN WITHOUT CONTRAST CLINICAL HISTORY: dizziness, SHAFER, elevated BP TECHNIQUE: Multiplanar, multisequence MR images of the brain without intravenous contrast. Comparison: None FINDINGS: There is no restricted diffusion. There are scattered small hyperintense T2 foci in the supratentoria l white matter compatible with mild chronic small-vessel ischemic changes. There is no evidence of he morrhage, mass, mass effect or midline shift. There is no hydrocephalus or extra-axial fluid collecti on. The visualized intracranial vasculature demonstrates appropriate flow-voids. The sagittal midline structures appear unremarkable. The craniocervical junction is within normal limits. The calvarium d emonstrates normal marrow signal. The paranasal sinuses and mastoid air cells are clear. IMPRESSION: 1. There is no acute intracranial process. 2. Mild chronic small-vessel supratentorial white matter ischemic changes. HS:Y
[2024-09-22] MEDS: IOHEXOL 350 MG/ML 100ML IJ ONE ×2 (11:33)
[2024-09-22] MEDS ORDERED: HYDROmorphone HCL 2 MG/ML VL/or syr IV PRN (12:45)
--- NOTE | 2024-09-22 12:59 | DVHPN2 ---
Progress Note - Dictate Date Seen: Sep 22, 2024 Has the PT tested + for MRSA If YES, has PT been informed?: No Medical Necessity Reason Pt with a Central, PICC or Fol: No Medical Necessity Reason Recurrent dizziness-presyncope this morning MRI head exam Subjective The patient reported symptoms of recurrence of dizziness and presyncope while he was talking to his neighbor patient. He reports to have gait leaning on left side * Recommended MRI of head to rule out cerebellar CVA * So far cardiac workup unremarkable for acute [place] Through serial EKGs and enzymes, and 2D echocardiogram CTA chest ruled out pulmonary embolism * So far carotid artery duplex study unremarkable for occlusive disease Overnight events are reviewed through medical chart and case discussion with patient's assigned RN while making rounds on patient on the day of service vital signs Vital Sign Date Time Temp Pulse Resp B/P (MAP) Pulse Ox O2 Delivery O2 Flow Rate FiO2 09/22/24 11:11 150/81 09/22/24 08:55 97.6 64 20 95 97.6 09/21/24 20:00 Room Air* 0 21 Total Intake and Output 09/21/24 09/21/24 09/22/24 15:00 23:00 07:00 Intake Total 200 ml 900 ml Output Total 1000 ml Balance -800 ml 900 ml medications Current Medications Medications Dose Ordered Sig/Popeye Route Start Time Stop Time Status Last Admin Dose Admin Nitroglycerin 0.4 mg Q5MINP PRN SL 09/19/24 22:30 Apixaban 5 mg BID PO 09/20/24 10:00 09/22/24 09:42 5 MG Atorvastatin Calcium 20 mg DAILY PO 09/20/24 10:00 09/22/24 09:43 20 MG Clonidine HCl 0.1 mg Q8HP PRN PO 09/19/24 22:30 09/22/24 10:05 0.1 MG Glipizide 5 mg QAM PO 09/20/24 07:00 09/22/24 06:27 5 MG Pantoprazole Sodium 40 mg BID PO 09/20/24 10:00 09/22/24 09:42 40 MG Sucralfate 1 gm QIDACHS PO 09/20/24 07:00 09/22/24 11:49 1 GM Patient Own Medication 25 mg DAILY PO 09/20/24 10:00 Insulin Human Lispro AC SC 09/20/24 07:00 Insulin Human Lispro HS SC 09/20/24 22:00 09/21/24 22:02 2 UNITS Valsartan 160 mg DAILY@DINNER PO 09/20/24 17:30 09/21/24 17:00 160 MG Valsartan 80 mg DAILY@BREAKFAST PO 09/20/24 08:00 09/22/24 06:25 80 MG Flecainide Acetate 50 mg Q12HR PO 09/20/24 10:00 09/22/24 09:43 50 MG Quetiapine Fumarate 25 mg BID PO 09/20/24 10:00 09/22/24 09:42 25 MG Hydromorphone HCl 0.8 mg Q4HP PRN IV 09/19/24 22:45 Al Hydrox/Mg Hydrox/Simethicone 15 ml ACHS GT 09/20/24 07:00 09/22/24 11:49 15 ML Atropine Sulfate 0.5 mg Q15MP PRN IV 09/20/24 23:00 Amlodipine Besylate 5 mg DAILY PO 09/22/24 10:00 09/22/24 09:43 5 MG Sodium Chloride 1,000 ml @ 100 mls/hr Q10H IV 09/22/24 12:45 Hydromorphone HCl 0.6 mg Q4HPRN PRN IV 09/22/24 12:45 objective General appearance: Well-developed, obese built middle-aged white male Awake alert oriented x3 no respiratory distress Head: Normocephalic nontraumatic Eyes: EOM- full, no nystagmus, no diplopia VALENTINO, sclera nonicteric, conjunctive- pale ENT: No congestion, NSL bilateral symmetrical, oral mucosa wet Neck: Supple, carotid upstroke +2, trachea midline, JVD-3 cm, C spine- Full ROM No thyroid or lymph node , no use of sternomastoid muscle Chest: Bilateral symmetrical expansions, L sided Costochondral tenderness-improving Lungs: clear breath sounds all over except reduced at bases CVS: PMI-1 cm medial to L MCL in fifth ICS , S1- S2 NSR no S3 GI: Abdomen soft, obese, bowel sounds normoactive No focal tenderness, no rebound tenderness No hepatosplenomegaly, no mass no hernia , : No CVA tenderness, no bladder mass palpable, genitalia-NE SKIN: Turgor -improving, color pink, no rash, no icterus, No varicosity, no ulcers or wounds EXTs: No edema, color pink, no rash, no ecchymosis distal pulses +2 capillary refill <2 seconds, No open wounds JOINTS: Reduced range of motion at shoulders BACK: No apparent lumbosacral spinal muscle tenderness, LYMPH NODES: No cervical, axillary or inguinal lymph nodes Neuro: Awake alert oriented 4, coherent, all cognitives- intact No pronator drift, no focal motor deficit, Changes of peripheral neuropathy [id number] dysmetria present, DTR +2, Gait- leans to the left, wide PSYCH: Affect mildly depressed-denies suicidal ideation laboratory and microbiology Laboratory Tests 09/22/24 08:16 09/20/24 06:44 Test 09/22/24 08:16 Range/Units Serum Glucose 168 H 74-106 mg/dL ORDERING PHYSICIAN: ROSIE JOHNSON MD PROCEDURE(s): MBHL - BRAIN HEAD WO CONTRAST REASON: dizziness, SHAFER, elevated BP ORDER NUMBER(s): [id number], ACCESSION NUMBER(s): [id number] MRI BRAIN WITHOUT CONTRAST CLINICAL HISTORY: dizziness, SHAFER, elevated BP TECHNIQUE: Multiplanar, multisequence MR images of the brain without intravenous contrast. Comparison: None FINDINGS: There is no restricted diffusion. There are scattered small hyperintense T2 foci in the supratentorial white matter compatible with mild chronic small-vessel ischemic changes. There is no evidence of hemorrhage, mass, mass effect or midline shift. There is no hydrocephalus or extra-axial fluid collection. The visualized intracranial vasculature demonstrates appropriate flow-voids. The sagittal midline structures appear unremarkable. The craniocervical junction is within normal limits. The calvarium demonstrates normal marrow signal. The paranasal sinuses and mastoid air cells are clear. IMPRESSION: 1. There is no acute intracranial process. 2. Mild chronic small-vessel supratentorial white matter ischemic changes. HS:Y Problem List 1. Acute chest pain-musculoskeletal Acute costochondritis-likely cause GE reflux/hiatal hernia-most likely cause -Ruled out [place] and PE respectively through Serial EKGs enzymes and CTA chest 2. Recurrent dizziness -multifactorial -MRI head rules out acute cerebellar CVA - hypovolemia and orthostasis are being corrected -inadvertent effect of multiple medications such as Flomax, Januvia, prazosin Flecainide 3. Bradycardia Predominantly from inadvertent effect of metoprolol Partly due to athletic exercises 4. Fairly Well-controlled diabetes and hypertension Assessment/Plan Medical decision making * Patient was symptomatic for recurrence of dizziness and presyncope this morning * No sign of cardiac arrhythmias or orthostatic hypotension noted * As a result, requested MRI of head which rules out acute cerebellar CVA * Carotid artery duplex study ruled out occlusive carotid artery disease * Recommended patient to receive CTA head and neck * Since patient had CTA chest 24 hours, we will defer the CTA head and neck for next 24 hours * In interim patient will be continued on IV hydration while monitoring renal functions * NIDDM and hypertension remained under fair control * Case discussed with Ms. Romero- director Treatment plans 1. Continue hospital stay at telemetry bed 2. Order CTA head and neck 3. Continue IV hydration 4. Reviewed results of MRI head with patient 5. Continue amlodipine and valsartan 6. Continue Eliquis 7. Continue Humalog for diabetes 8. Check BMP in the morning 9. Discharge planning in next 24 hours VTE precautions Update patient The patient and/or family is well informed by me about 1. Clinical impression, treatment plans, side effects of medications, course of the disease and prognosis 2. All patient's question/ concerns raised by patient are satisfactorily addressed by me Total time spent 45 minutes 40% of time spent interviewing the patient and physical exam 30% of time spent in gathering lab datas and imaging studies 30 % of time is spent in patient education Prognosis fair Dietary Evaluation Review Recommendations by RD: Dietary education by RD, Decrease Calorie Intake Comments: Recommend intentional weight loss of 50 lbs Expected Outcomes/Goals: Help avoid comorbidities from morbid obesity such as hypoventilation, cardiac arrhythmias, embolic events like CVA or PE Interpretation of weight loss: >10% in 6 months Plan discussed with: Patient, Spouse Total Time (mins): 45 ROSIE JOHNSON MD Sep 22, 2024 12:59
[2024-09-22] MEDS: SOD CHL 0.45% 1,000 ML IV SCH (14:41)
[2024-09-23] VITALS (10 sets, daily range): BP systolic 138–152; BP diastolic 68–83; PULSE 57–97; RESP 16–19; TEMP 97–97.9; O2SAT 92–95
[2024-09-23 07:06] LABS: Alanine Aminotransferase 16 U/L (7-40); Albumin 4.2 g/dL (3.2-4.8); Alkaline Phosphatase 50 U/L (46-116); Anion Gap 8 (5-15); Aspartate Aminotransferase 17 U/L (13-40); BUN/Creatinine Ratio 7.4 (10.0-20.0); Calcium 9.5 mg/dL (8.7-10.4); Carbon Dioxide 23 mmol/L (20-31); Potassium 3.6 mmol/L (3.5-5.1); Sodium 139 mmol/L (136-145)
[2024-09-23 07:07] LABS: Bilirubin, Total 0.7 mg/dL (0.2-1.0); Total Protein 6.2 g/dL (5.7-8.2)
[2024-09-23 07:16] LABS: Blood Urea Nitrogen 6 mg/dL (9-23); Chloride 108 mmol/L (98-107); Glucose 121 mg/dL (74-106)
[2024-09-23] MEDS: IOHEXOL 350 MG/ML 100ML IJ ONE (11:42)
--- NOTE | 2024-09-23 13:09 | DVH ---
EXAM: CT ANGIO HEAD/NECK HISTORY: RECURRENT DIZZINESS COMPARISON: Chest CT angiogram dated 09/21/2024, chest dated 10/22/2023 TECHNIQUE: CTA imaging of the neck and head was performed following the uneventful administration o f intravenous contrast. Sagittal and coronal reformatted images were obtained from the source data. 3 D/MIP post-processing of the source data set was performed and reviewed by the radiologist. Radiation Dose Information: CT Dose: CTDI volume is 31 mGy. Dose-length product is 1426 mGy*cm All CT scans at this medical facility are performed using dose modulation techniques as appropriate t o a performed exam including the following: Automated exposure control was utilized; adjustment of th e MA and/or KV according to patient size; and use of iterative reconstruction technique. FINDINGS: CTA Neck: Aortic Arch: Conventional branching. Right brachiocephalic artery: Mild atherosclerotic calcification noted. Right carotid artery: Mild calcified plaque formation of the carotid bulb. Right subclavian artery: Mild atherosclerotic calcification. Right vertebral artery: Unremarkable. Left carotid artery: Mild calcified plaque formation of the carotid bulb and proximal ICA. Left subclavian artery: Unremarkable. Left vertebral artery: Hypoplastic but patent. Other: Mild multilevel degenerative disc disease and posterior facet arthropathy of the cervical spin e noted. A 4 mm nodule seen in the right apex. CTA Head: [place]: The anterior circulation is patent. The bilateral intracranial iCAs, anterior and middle cerebral arteries are patent. 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 Basilar artery and bilateral vertebral arteries are patent. There is moderate narrowing of the P2 a segment of the right MOPPER. Dural venous: Grossly unremarkable. Other: A CT scan of the brain without IV contrast shows preservation of ha- white matter differenti ation. No midline shift noted. No intracranial hemorrhage. No signs of acute territorial ischemia. Pa ranasal sinuses and mastoid air cells are clear. The orbits are unremarkable. No acute osseous or s oft tissue abnormality. IMPRESSION: 1. Moderate narrowing and irregularity of the P2 a segment of the right MOPPER which may reflect underly ing partial thrombosis, plaque formation or fibromuscular dysplasia. Recommend clinical and biochemic al correlation. 2. Mild scattered plaque formation in the arteries of the neck without significant stenosis. 3. notedIncidentally 4 mm nodule in the right apex, unchanged compared to CT scan of 10/22/2023.
[2024-09-23 20:11] LABS: Chloride 107 mmol/L (98-107); Potassium 3.7 mmol/L (3.5-5.1); Sodium 139 mmol/L (136-145)
[2024-09-23 20:12] LABS: Anion Gap 10 (5-15); Carbon Dioxide 22 mmol/L (20-31)
[2024-09-23 20:13] LABS: Calcium 10.2 mg/dL (8.7-10.4)
[2024-09-23 20:17] LABS: BUN/Creatinine Ratio 5.3 (10.0-20.0)
[2024-09-23 20:20] LABS: Blood Urea Nitrogen 5 mg/dL (9-23); Glucose 221 mg/dL (74-106)
--- NOTE | 2024-09-23 21:45 | DVHPN2 ---
Progress Note - Dictate Date Seen: Sep 23, 2024 Has the PT tested + for MRSA If YES, has PT been informed?: No Medical Necessity Reason Pt with a Central, PICC or Fol: No Medical Necessity Reason Recurrent dizziness and pre syncope CTA head and neck exam IV hydration Subjective The patient has been receiving evaluation for symptoms of recurrent dizziness and Presyncope * Last event of presyncope, recurrent dizziness 24 hours * No cardiac arrhythmias on telemetry * Received IV hydration agreed of 100 mL/hour * Renal functions are intact * Received CTA head and neck * Results of neuroimaging discussed with the patient Overnight events are reviewed through medical chart and case discussion with patient's assigned RN while making rounds on patient on the day of service vital signs Vital Sign Date Time Temp Pulse Resp B/P (MAP) Pulse Ox O2 Delivery O2 Flow Rate FiO2 09/23/24 21:00 97.5 87 19 138/68 (91) 94 97.5 09/23/24 08:00 Room Air* 0 21 Total Intake and Output 09/22/24 09/22/24 09/23/24 15:00 23:00 07:00 Intake Total 560 ml 300 ml Output Total 700 ml Balance -140 ml 300 ml medications Current Medications Medications Dose Ordered Sig/Popeye Route Start Time Stop Time Status Last Admin Dose Admin Nitroglycerin 0.4 mg Q5MINP PRN SL 09/19/24 22:30 Apixaban 5 mg BID PO 09/20/24 10:00 09/23/24 09:45 5 MG Atorvastatin Calcium 20 mg DAILY PO 09/20/24 10:00 09/23/24 09:47 20 MG Clonidine HCl 0.1 mg Q8HP PRN PO 09/19/24 22:30 09/22/24 10:05 0.1 MG Glipizide 5 mg QAM PO 09/20/24 07:00 09/23/24 06:13 5 MG Pantoprazole Sodium 40 mg BID PO 09/20/24 10:00 09/23/24 09:47 40 MG Sucralfate 1 gm QIDACHS PO 09/20/24 07:00 09/23/24 16:28 1 GM Patient Own Medication 25 mg DAILY PO 09/20/24 10:00 Insulin Human Lispro AC SC 09/20/24 07:00 09/23/24 11:23 300 UNITS Insulin Human Lispro HS SC 09/20/24 22:00 09/22/24 23:51 2 UNITS Valsartan 160 mg DAILY@DINNER PO 09/20/24 17:30 09/23/24 16:28 160 MG Valsartan 80 mg DAILY@BREAKFAST PO 09/20/24 08:00 09/23/24 09:46 80 MG Flecainide Acetate 50 mg Q12HR PO 09/20/24 10:00 09/23/24 10:34 50 MG Quetiapine Fumarate 25 mg BID PO 09/20/24 10:00 09/22/24 23:56 25 MG Hydromorphone HCl 0.8 mg Q4HP PRN IV 09/19/24 22:45 Al Hydrox/Mg Hydrox/Simethicone 15 ml ACHS GT 09/20/24 07:00 09/23/24 16:26 15 ML Atropine Sulfate 0.5 mg Q15MP PRN IV 09/20/24 23:00 Amlodipine Besylate 5 mg DAILY PO 09/22/24 10:00 09/23/24 09:47 5 MG Sodium Chloride 1,000 ml @ 100 mls/hr Q10H IV 09/22/24 12:45 09/23/24 08:45 100 MLS/HR Hydromorphone HCl 0.6 mg Q4HPRN PRN IV 09/22/24 12:45 objective General appearance: Well-developed, obese built middle-aged white male Awake alert oriented x3 no respiratory distress Head: Normocephalic nontraumatic Eyes: EOM- full, no nystagmus, no diplopia VALENTINO, sclera nonicteric, conjunctive- pale ENT: No congestion, NSL bilateral symmetrical, oral mucosa dry Neck: Supple, carotid upstroke +2, trachea midline, JVD-3 cm, C spine- Full ROM No thyroid or lymph node , no use of sternomastoid muscle Chest: Bilateral symmetrical expansions, L sided Costochondral tenderness at 7th through 9th ics Lungs: clear breath sounds all over except reduced at bases CVS: PMI-1 cm medial to L MCL in fifth ICS , S1-S2 NSR no S3 GI: Abdomen soft, obese, bowel sounds normoactive No focal tenderness, no rebound tenderness No hepatosplenomegaly, no mass no hernia , : No CVA tenderness, no bladder mass palpable, genitalia-NE SKIN: Turgor -dry, color pink, no rash, no icterus, No varicosity, no ulcers or wounds EXTs: No edema, color pink, no rash, no ecchymosis distal pulses +2 capillary refill <2 seconds, No open wounds JOINTS: Reduced range of motion at shoulders BACK: No apparent lumbosacral spinal muscle tenderness, LYMPH NODES: No cervical, axillary or inguinal lymph nodes Neuro: Awake alert oriented 4, coherent, all cognitives- intact No pronator drift, no focal motor deficit, Changes of peripheral neuropathy [id number]-aiuj dysmetria present, DTR +2, laboratory and microbiology Laboratory Tests 09/23/24 19:38 09/20/24 06:44 Test 09/23/24 19:38 Range/Units Serum Glucose 221 #H 74-106 mg/dL ORDERING PHYSICIAN: ROSIE JOHNSON MD PROCEDURE(s): [place] - ANGIO HEAD/Neck REASON: RECURRENT DIZZINESS ORDER NUMBER(s): [id number], ACCESSION NUMBER(s): [id number] EXAM: CT ANGIO HEAD/NECK HISTORY: RECURRENT DIZZINESS COMPARISON: Chest CT angiogram dated 09/21/2024, chest dated 10/22/2023 TECHNIQUE: CTA imaging of the neck and head was performed following the uneventful administration of intravenous contrast. Sagittal and coronal reformatted images were obtained from the source data. 3D/MIP post-processing of the source data set was performed and reviewed by the radiologist. Radiation Dose Information: CT Dose: CTDI volume is 31 mGy. Dose-length product is 1426 mGy*cm All CT scans at this medical facility are performed using dose modulation techniques as appropriate to a performed exam including the following: Automated exposure control was utilized; adjustment of the MA and/or KV according to patient size; and use of iterative reconstruction technique. FINDINGS: CTA Neck: Aortic Arch: Conventional branching. Right brachiocephalic artery: Mild atherosclerotic calcification noted. Right carotid artery: Mild calcified plaque formation of the carotid bulb. Right subclavian artery: Mild atherosclerotic calcification. Right vertebral artery: Unremarkable. Left carotid artery: Mild calcified plaque formation of the carotid bulb and proximal ICA. Left subclavian artery: Unremarkable. Left vertebral artery: Hypoplastic but patent. Other: Mild multilevel degenerative disc disease and posterior facet arthropathy of the cervical spine noted. A 4 mm nodule seen in the right apex. CTA Head: [place]: The anterior circulation is patent. The bilateral intracranial iCAs, anterior and middle cerebral arteries are patent. 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 Basilar artery and bilateral vertebral arteries are patent. There is moderate narrowing of the P2 a segment of the right FILER HELPER. Dural venous: Grossly unremarkable. Other: A CT scan of the brain without IV contrast shows preservation of ha- white matter differentiation. No midline shift noted. No intracranial hemorrhage. No signs of acute territorial ischemia. Paranasal sinuses and mastoid air cells are clear. The orbits are unremarkable. No acute osseous or soft tissue abnormality. IMPRESSION: 1. Moderate narrowing and irregularity of the P2 a segment of the right FILER HELPER w hich may reflect underlying partial thrombosis, plaque formation or fibromuscular dysplasia. Recommend clinical and biochemical correlation. 2. Mild scattered plaque formation in the arteries of the neck without significant stenosis. 3. notedIncidentally 4 mm nodule in the right apex, unchanged compared to CT scan of 10/22/2023. ATED BY: AVE AL MD DICTATED DATE/TIME: 09/23/24 1307 SIGNED BY: AVE AL MD SIGNED DATE/TIME: 09/23/24 1307 CC: Problem List 1. Recurrent dizziness and presyncope -multifactorial -MRI head ruled out acute cerebellar CVA -received CTA head and neck noted partial occlusion of P2 branch of R FILER HELPER -recommended patient to receive further evaluation at tertiary center like [facility] or [facility] - IV hydration helped correcting hypovolemia - inadvertent effect of multiple medications-the patient has been discontinued Flomax, Januvia, prazosin - patient is to discuss with [facility]iology about side effects of Flecainide 2. Acute chest pain -Rule out VA versus PE * Serial EKGs enzymes are unremarkable for acute VA * CTA chest unremarkable for pulmonary embolism * Known history of hiatal hernia which could be cause for LL cage pain 3. Bradycardia Predominantly from inadvertent effect of metoprolol Partly due to athletic exercises 4. Fairly Well-controlled diabetes and hypertension Assessment/Plan Medical decision making * Overall patient's hemodynamic condition remains clinically stable * Reviewed results of CTA head and neck * Discussed differential diagnosis of narrowing of the P2 branch of R FILER HELPER * Recommend to continue Eliquis +/- Plavix * Recommend evaluation at tertiary care center such as [place] or [facility] * The patient agrees to receive further evaluation at tertiary care center * Reviewed results of carotid artery duplex study, 2D echo and CTA chest * Seems to have recovered from symptoms of chest pain dizziness * Noted fairly well-controlled NIDDM and hypertension * Reviewed inadvertent effect of medications Treatment plans 1. Discharge patient home today 2. Reconciled discharge medication 3. Reviewed results of neuro imaging study-CTA head and neck, MRI head 4. Follow up with me, Cardiology at [facility] in 1-5 days 5. Discharge planning for this evening as per patient's request VTE precautions Update patient The patient and were well informed by me about 1. Clinical impression, treatment plans, side effects of medications, course of the disease and prognosis 2. All patient's question/ concerns raised by patient are satisfactorily addressed by me Total time spent 60 minutes 40% of time spent interviewing the patient and physical exam 30% of time spent in gathering lab datas and imaging studies 30 % of time is spent in patient education Prognosis Fair Dietary Evaluation Review Recommendations by RD: Dietary education by RD, Decrease Calorie Intake Comments: Recommended intentional weight loss of 50 lb as Expected Outcomes/Goals: Intentional weight loss can help avoiding morbidity related complications Such as hypoventilation, hypoxia, cardiac arrhythmias, embolic events like PE or CVA Interpretation of weight loss: up to 10% in 6 months Plan discussed with: Patient, Spouse Total Time (mins): 60 ROSIE JOHNSON MD Sep 23, 2024 21:45
[2024-09-23] MEDS ORDERED: METF-1145 PO (21:50)
--- NOTE | 2024-09-25 09:38 | DVHDS2 ---
Discharge Summary Date of Admission Sep 19, 2024 at 21:01 Date of Discharge: Sep 23, 2024 Admitting Diagnosis 1. Acute chest pain -Rule out VA versus PE 2. Recurrent dizziness -rule out cerebellar CVA Rule out occlusive carotid artery disease Inadvertent effect of medications Peripheral neuropathy 3. Recurrent presyncope 4. Recurrent premature ventricular beats 5. Hypovolemia 6. Fairly well-controlled NIDDM antihypertension 2' Diagnosis/Comorbidities Exogenous obesity Personal history of alcoholism Labs/Diagnostic Data: Laboratory Results Test 09/23/24 21:43 09/23/24 19:38 09/23/24 05:58 09/21/24 05:24 POC Glucose 118 mg/dl (70-106) Sodium Level 139 mmol/L (136-145) Potassium Level 3.7 mmol/L (3.5-5.1) Chloride Level 107 mmol/L (98-107) Carbon Dioxide Level 22 mmol/L (20-31) Anion Gap 10 (5-15) Blood Urea Nitrogen 5 mg/dL (9-23) Creatinine 0.95 mg/dL (0.700-1.30) Glomerular Filtration Rate Calc 90 mL/min (>90) BUN/Creatinine Ratio 5.3 (10.0-20.0) Serum Glucose 221 mg/dL (74-106) Calcium Level 10.2 mg/dL (8.7-10.4) Total Bilirubin 0.7 mg/dL (0.2-1.0) Aspartate Amino Transferase (AST) 17 U/L (13-40) Alanine Aminotransferase (ALT) 16 U/L (7-40) Alkaline Phosphatase 50 U/L (46-116) Total Protein 6.2 g/dL (5.7-8.2) Albumin 4.2 g/dL (3.2-4.8) Phosphorus Level 3.9 mg/dL (2.4-5.1) Magnesium Level 1.7 mg/dL (1.6-2.6) Test 09/20/24 06:44 09/20/24 00:15 09/19/24 23:50 White Blood Count 8.4 10^3/uL (4.4-10.8) Red Blood Count 4.82 10^6/uL (4.5-5.90) Hemoglobin 14.7 g/dL (13.5-17.5) Hematocrit 42.9 % (41.0-53.0) Mean Corpuscular Volume 89.0 fL (80.0-100.0) Mean Corpuscular Hemoglobin 30.5 pg (28.0-32.0) Mean Corpuscular Hemoglobin Concent 34.2 g/dL (32.0-36.0) Red Cell Distribution Width 14.0 % (11.8-14.3) Platelet Count 259 10^3/uL (140-450) Mean Platelet Volume 7.9 fL (6.9-10.8) Neutrophils (%) (Auto) 66.5 % (37.0-80.0) Lymphocytes (%) (Auto) 21.0 % (10.0-50.0) Monocytes (%) (Auto) 9.8 % (0.0-12.0) Eosinophils (%) (Auto) 2.1 % (0.0-7.0) Basophils (%) (Auto) 0.6 % (0.0-2.0) Neutrophils # (Auto) 5.6 10 ^3/uL (1.6-8.6) Lymphocytes # (Auto) 1.8 10 ^3/uL (0.4-5.4) Monocytes # (Auto) 0.8 10 ^3/uL (0-1.3) Eosinophils # (Auto) 0.2 10 ^3/uL (0-0.8) Basophils # (Auto) 0 10 ^3/uL (0-0.2) Nucleated Red Blood Cells 0.0 % Hemoglobin A1c 7.1 % A1C (<5.7) Troponin I High Sensitivity 21 ng/L (</=54) Triglycerides Level 113 mg/dL (< 150) Cholesterol Level 128 mg/dL (< 200) LDL Cholesterol 71 mg/dL (< 100) HDL Cholesterol 42 mg/dL (40-59) Prothrombin Time 11.5 sec (9.3-11.8) Prothrombin Time INR 1.09 (0.9-1.15) Activated Partial Thromboplast Time 28.3 SEC (24.5-34.5) D-Dimer, Quantitative < 0.19 mg/L FEU (0.0-0.49) Amylase Level 22 U/L (30-118) Lipase 47 U/L (12-53) Thyroid Stimulating Hormone (TSH) 3.08 uIU/mL (0.55-4.78) Urine Color Light-yellow (Yellow) Urine Clarity Clear (Clear) Urine pH 7.0 (5.0-9.0) Urine Specific [place] 1.010 (1.001-1.035) Urine Protein Negative (Negative) Urine Ketones Negative (Negative) Urine Blood Negative /uL (Negative) Urine Nitrite Negative (Negative) Urine Bilirubin Negative (Negative) Urine Urobilinogen Normal mg/dL (Negative) Urine Leukocyte Esterase Negative /uL (Negative) Urine RBC <1 /hpf (0 - 3) Urine Microscopic WBC 1 /HPF (0-3) Urine Squamous Epithelial Cells None seen /hpf (<5) Urine Bacteria None seen /hpf (None Seen) Urine Glucose Normal mg/dL (Normal) Other Laboratory Tests 09/23/24 19:38 09/20/24 06:44 Brief Hx & Hospital Course: Admitting Diagnosis: Left-sided Chest pains Recurrent dizziness History of Present Illness 64-year-old middle-aged white male with known history of hypertension, NIDDM Hypercholesterolemia, obesity, COPD and nonocclusive CAD is directly admitted For further eval and management of signs symptoms of nonexertional, non- referring left-sided lower chest pain-non referring, pretty much localized to L 7 thru 10 ICS- at times pleuritic-4 to 5/10 without symptoms of diaphoresis, nausea vomiting Over last 3-4 days. He also reports to have additional symptoms of recurrent dizziness which occurs all of sudden, while he is in sitting or standing posture, Makes him feel/fear about precipitous fall associated with facial pallor, diaphoresis and blurred vision over past 1 week. Patient is one more episode of presyncope this morning. He appeared to be pale diaphoretic and orthostasis. This am he had Intake of Januvia for management of diabetes. His hemoglobin A1c runs around 6.5% In order to avoid inadvertent effect of medications, he has been taken off from meds like Flomax, and prazosin. Besides all above, patient has has symptoms of recurrent Premature ventricular beats for which he was recommended medical treatment by Dr. Stallings. He has been prescribed flecainide by associate professor of violin at [facility]. He also consulted a associate professor of violin from [facility] who recommended him Ozempic for intentional weight loss. As per patient, he runs 3-4 miles x 2-3 per week. The patient is admitted for further evaluation of recurrent chest pains, dizziness and presyncope. Past Medical History Past Medical History: Past Medical History records reviewed Cardiovascular history : Long history of hypertension with recurrent angina 50% non occlusive disease of RCA - coronary angiogram-2023 and 2014 Premature ventricular beats- assessed by Dr. Higgins and cardiology of [facility] 2. 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 Milton orthopedist Psychiatric History : PTSD-anxiety mixed with depression Schizoaffective bipolar depression-receives psychotropic medication prescribed by physicians of the [place] [facility] Past Surgical History Past Surgical History ROTATOR CUFF REPAIR R shoulder ACROMIOPLASTY, EXCISION OF THE DISTAL END CLAVICLE, LYSIS OFACHROMIAL LIGAMENT, DEBRIDEMENT/REPAIR OF THE LABRUM OF THE RIGHT SHOULDER Right 07/22/2021 Procedure: ROTATOR CUFF REPAIR ADHESIONS, BICEP TENOSYNOVECTOMY, Surgeon: Kiki Milton MD; Location: [facility] MAIN OR Bilateral SHOULDER ARTHROSCOPY- Left x 3 right x 4 SPINE SURGERY SACRAL LAMINOPLASTY AND MICROSURGICAL REPAIR OF TARLOV CYST SPINAL CORD UNTETHERING WITH AUTOLOGOUS FAT GRAFT AND DURAL DRAFTING at [place] Surgeon: Ange ? Resection of lipoma from upper back. ? Linnea filter placement in inferior vena cava 2006 Social History Vital Signs Date Time Temp Pulse Resp B/P (MAP) Pulse Ox O2 Delivery O2 Flow Rate FiO2 09/19/24 22:45 97.8 ( O) 63 18 149/90 (109) supine 97 Room Air* 0 21 09/19/24 22:46 70 138/68 (91)Sitting 2/4/25 22:47 74 132/76 Standing 94 Room Air* 0 21 Physical Exam General appearance: Well-developed, obese built middle-aged white male Awake alert oriented x3 no respiratory distress Head: Normocephalic nontraumatic Eyes: EOM- full, no nystagmus, no diplopia [place], sclera nonicteric, conjunctive- pale Unremarkable on a balloon: No congestion, NSL bilateral symmetrical, oral mucosa dry Neck: Supple, carotid upstroke +2, trachea midline, JVD-3 cm, C spine- Full ROM No thyroid or lymph node , no use of sternomastoid muscle Chest: Bilateral symmetrical expansions, L sided Costochondral tenderness Lungs: clear breath sounds all over except reduced at bases CVS: PMI-1 cm medial to L MCL in fifth ICS , S1- S2 NSR no S3 GI: Abdomen soft, obese, bowel sounds normoactive No focal tenderness, no rebound tenderness No hepatosplenomegaly, no mass no hernia , : No CVA tenderness, no bladder mass palpable, genitalia-NE SKIN: Turgor -dry, color pink, no rash, no icterus, No varicosity, no ulcers or wounds EXTs: No edema, color pink, no rash, no ecchymosis distal pulses +2 capillary refill <2 seconds, No open wounds JOINTS: Reduced range of motion at shoulders BACK: No apparent lumbosacral spinal muscle tenderness, LYMPH NODES: No cervical, axillary or inguinal lymph nodes Neuro: Awake alert oriented 4, coherent, all cognitives- intact No pronator drift, no focal motor deficit, Changes of peripheral neuropathy [id number] dysmetria present, DTR +2, Gait- leans to the left, wide PSYCH: Affect mildly depressed-denies suicidal ideation Hospital Course Based on patient's history and physical findings,he was admitted to medical floor with telemetry. He was given cardiac and neuro workup for his current symptoms Chest pains-chronic stable angina Present at time of admission: Yes Status: Acute Problem specific AP: Received evaluation for chest pain-rule out acute VA * Cardiac risk factors-NIDDM, hypertension, hypercholesterolemia and obesity * Left-sided costochondral tenderness and pleuritic nature were falling against cardiac cause * Serial EKGs and enzymes ruled out acute VA * 2D Echo as read by Dr. Romo, cardiology reflected EXAM: Two-dimensional and M-mode echocardiogram with Doppler and color Doppler. Blood Pressure: 141/93 mmHg INDICATION Chest Pain RISK FACTORS Height: 5'6", Weight: 210 DIMENSIONS LVDd 5.1 (3.8-5.7cm) LA (2D) 3.1 (1.9-4.0cm) Aortic Root 3.9 (2.0- 3.7cm) LVDs 3.6 (2.5-4.0cm) LA (MM) (1.9-4.0cm) Aortic Cusp Exc 2.2 (1.5- 2.0cm) EF (%) 54.0 (55-70%) Rt. Atrium 3.8 (1.9-4.0cm) Asc. Aorta 3.3 cm IVSd 1.0 (0.7-1.1cm) RV (D) 3.3 (1.8-2.4cm) PWd 0.8 (0.7-1.1cm) Mitral Valve Mitral Mitral Stenosis E wave 0.62m/s MV Mean GR. mmHg A wave 0.65m/s MV Peak GR. mmHg E/A ratio 1.0 2D MVA cm2 DECEL Time 204ms PRESS 1/2 Time ms Aortic Valve Aortic Valve Aortic Stenosis V1 0.91m/s AO Mean GR. 4mmHg V2 1.30m/s AO Peak GR. 7mmHg LVOT Diameter 2.2 (1.8-2.4cm) Doppler BREA 2.66cm2 Pulmonic Valve V2 0.96m/s Other Information Quality : Technically Limited Rhythm : Technically limited study due to body habitus. Conclusion Sinus rhythm. Mild RV enlargement. Mild aortic root enlargement. Valves are normal. EF of 60% with normal RV function. Moderate pulmonic insufficiency. Moderate tricuspid regurgitation. No pericardial effusion masses or vegetations SIGNED BY: DERICK ROMO Sr., MD SIGNED DATE/TIME: 09/20/24 1603 * Subjected to CTA chest Type of contrast: Omni 350 Contrast injected: 100 ml Radiation dose : Chest: CTDI volume is 42 mGy. Dose-length product is 969.09 mGy*cm The dose indicators for CT are the volume computed Tomography (CT) dose Index (CTDIvol) and the dose Length product (DLP), and are measured in units of mGy and mGy-cm, respectively. These indicators are not patient dose, but values generated from the CT scanner acquisition factors. The report includes radiation exposure data for exposures received during this examination. Findings: Pulmonary artery: No pulmonary embolism Lower neck: Normal thyroid. Lungs: No focal consolidation, pleural effusion or pneumothorax. Calcified granuloma left lower lung. Pleura: No pleural effusion or significant pneumothorax. Lymph Nodes: Calcified mediastinal and hilar lymph nodes. Heart/Vascular Structures: Normal heart size. No pericardial effusion. Soft tissues: Normal. Musculoskeletal: No acute osseous abnormality. Upper abdomen: Subcentimeter hepatic cyst. IMPRESSION: 1. No pulmonary embolism. 2. Evidence of prior granulomatous disease. No suspicious nodule or consolidation. HS:Y * In essence, cause of chest pain was musculoskeletal in nature * There were no cardiac arrhythmias noted on telemetry * Recommended patient to intentionally lose 40-50 lbs to ADA low-cholesterol diet and exercise as tolerated Recurrent dizziness, presyncope and hypovolemia Present at time of admission: Yes Status: Acute Problem specific AP: There was no history of upper respiratory tract infection other than common cold 2-3 week ago. There was no sign of otitis media on physical exam There was no sign of nystagmus or diplopia on physical exam Noted orthostasis from hypovolemia-partly aggravated by concurrent use of medications All offending medications such as prazosin, Januvia and Flomax were discontinued Reduced dose of metoprolol. Informed side effect of flecainide which he wanted to continue for symptoms of recurrent PVC * Subjected patient to carotid artery duplex study CLINICAL HISTORY: Dizziness TECHNIQUE: Doppler study of bilateral carotid/vertebral arteries were performed. Comparison: None FINDINGS: There are mild nonocclusive atheromatous plaques in the bilateral carotid bulbs and proximal iCAs. The bilateral common carotid, external and internal carotid arteries appear patent without hemodynamically significant stenosis. The spectral wave forms and peak systolic velocities are within normal limits. Antegrade flow is present within the vertebral arteries with appropriate velocities and waveforms. Right ICA/CCA PSV ratio = 1.2. Left ICA/CCA PSV ratio = 0.8 . IMPRESSION: 1. No hemodynamically significant stenosis within the carotid arteries. HS:Y * On morning of 2024, patient had another episode of dizziness despite receiving IV hydration and despite being off offending medications * He was given neuroimaging eval through MRI and CTA head and neck MRI BRAIN WITHOUT CONTRAST CLINICAL HISTORY: dizziness, SHAFER, elevated BP TECHNIQUE: Multiplanar, multisequence MR images of the brain without intravenous contrast. Comparison: None FINDINGS: There is no restricted diffusion. There are scattered small hyperintense T2 foci in the supratentorial white matter compatible with mild chronic small-vessel ischemic changes. There is no evidence of hemorrhage, mass, mass effect or midline shift. There is no hydrocephalus or extra-axial fluid collection. The visualized intracranial vasculature demonstrates appropriate flow-voids. The sagittal midline structures appear unremarkable. The craniocervical junction is within normal limits. The calvarium demonstrates normal marrow signal. The paranasal sinuses and mastoid air cells are clear. IMPRESSION: 1. There is no acute intracranial process. 2. Mild chronic small-vessel supratentorial white matter ischemic changes. HS:Y : CT ANGIO HEAD/NECK HISTORY: RECURRENT DIZZINESS COMPARISON: Chest CT angiogram dated 09/21/2024, chest dated 10/22/2023 TECHNIQUE: CTA imaging of the neck and head was performed following the uneventful administration of intravenous contrast. Sagittal and coronal reformatted images were obtained from the source data. 3D/MIP post-processing of the source data set was performed and reviewed by the radiologist. Radiation Dose Information: CT Dose: CTDI volume is 31 mGy. Dose-length product is 1426 mGy*cm All CT scans at this medical facility are performed using dose modulation techniques as appropriate to a performed exam including the following: Automated exposure control was utilized; adjustment of the MA and/or KV according to patient size; and use of iterative reconstruction technique. FINDINGS: CTA Neck: Aortic Arch: Conventional branching. Right brachiocephalic artery: Mild atherosclerotic calcification noted. Right carotid artery: Mild calcified plaque formation of the carotid bulb. Right subclavian artery: Mild atherosclerotic calcification. Right vertebral artery: Unremarkable. Left carotid artery: Mild calcified plaque formation of the carotid bulb and proximal ICA. Left subclavian artery: Unremarkable. Left vertebral artery: Hypoplastic but patent. Other: Mild multilevel degenerative disc disease and posterior facet arthropathy of the cervical spine noted. A 4 mm nodule seen in the right apex. CTA Head: [place]: The anterior circulation is patent. The bilateral intracranial iCAs, anterior and middle cerebral arteries are patent. 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 Basilar artery and bilateral vertebral arteries are patent. There is moderate narrowing of the P2 a segment of the right ORDER MANAGER. Dural venous: Grossly unremarkable. Other: A CT scan of the brain without IV contrast shows preservation of ha- white matter differentiation. No midline shift noted. No intracranial hemorrhage. No signs of acute territorial ischemia. Paranasal sinuses and mastoid air cells are clear. The orbits are unremarkable. No acute osseous or soft tissue abnormality. IMPRESSION: 1. Moderate narrowing and irregularity of the P2 a segment of the right ORDER MANAGER which may reflect underlying partial thrombosis, plaque formation or fibromuscular dysplasia. Recommend clinical and biochemical correlation. 2. Mild scattered plaque formation in the arteries of the neck without significant stenosis. 3. noted Incidentally 4 mm nodule in the right apex, unchanged compared to CT scan of 10/22/2023. * The patient was well explained about his neuro imaging studies * The patient is to consult Cardiology at [facility] * He agrees to receive further evaluation with Cardiology and Neurology at tertiary care center Such as [facility] or [facility] Fairly well-controlled NIDDM and hypertension Present at time of admission: Yes Status: Chronic Problem specific AP: * His long-term comorbidities like diabetes and hypertension remained under fair control * He was given Accu-Chek assessment with Humalog sliding scale coverage * Patient was taken off from Januvia * Antihypertensive medications were adjusted. He was taken off from prazosin Amlodipine was reduced to 5 mg p.o. once a day Valsartan 160 mg p.o. once a day Metoprolol was reduced to 12.5 mg p.o. once a day Discharge condition: Hemodynamically stable afebrile and ambulatory Discharge diet: ADA 1800 calorie low-salt 2 g Discharge activity mild to moderate as tolerated Discharge follow-up: With Cardiology at [facility] and Dr. Gongora in 1-5 days Operations or Procedures 2D echo Carotid artery duplex study CTA chest with angiogram MRI head CTA head and neck Condition at Discharge: Stable Final Diagnosis/Problems List 1. Acute chest pains.............improved -musculoskeletal cause -acute VA ruled out - pulmonary embolism ruled out 2. Recurrent dizziness and presyncope................................................ Improved -occlusive P2 segment of R ORDER MANAGER -hypovolemia and orthostasis -inadvertent effect of medications-Flomax, prazosin Januvia 3. Recurrent premature ventricular beats............................. Significantly improved 4. Fairly well-controlled NIDDM and hypertension 2. Recurrent dizziness -inadvertent effect of antihypertensive medications, Flomax - occlusive P 2 branch of R ORDER MANAGER 3. Hypovolemia 4. Fairly well-controlled NIDDM and hypertension Secondary Diagnosis: Exogenous obesity Discharge Disposition: Home Discharge Instruct/Medications Diet: Consistent carbohydrate, Cardiac 2g Na,low cholest Diet comment: ADA 1800 calorie low-salt 2 g low-cholesterol diet Activity: Light activity Activity comment: Recommend physical therapy for gait training Follow Up/Referral: With Dr. Annabella gongora 1-5 days With cardiology at [facility] in 1-5 days Recommended outpatient cardiology/ Neurology consultation at tertiary care center Medications: Refer to discharge med recs Discharge Statement: "Patient was advised to return to the ER or call 911 if any headaches, dizziness, shortness of breath, chest pain, abdominal pain, bleeding, fevers, or worsening of medical condition. Patient was counseled about treatment plan, medications, possible side effects, patientverbalized understanding. All questions were answered to the best of my ability. This discharge took greater then 30 minutes in planning, reviewing documentation, counseling the patient, and discussing with other team members." ASSESSMENT ASSESSMENT Assessment 1. Acute chest pains -acute VA ruled out - pulmonary embolism ruled out 2. Recurrent dizziness -inadvertent effect of antihypertensive medications, Flomax - occlusive P 2 branch of R ORDER MANAGER 3. Hypovolemia 4. Fairly well-controlled NIDDM and hypertension ROSIE GONGORA MD Sep 25, 2024 09:38
== END 2024-09-23 23:04 | disposition home or self-care (01) | DRG 313 ==
LOC: TELE-WESTW 21:01
PROVIDERS: ADMIT Specialist; ATTEND Specialist
DX: R07.89 Other chest pain (principal); E66.2 Morbid (severe) obesity with alveolar hypoventilation; Z68.45 Body mass index [BMI] 70 or greater, adult; E11.9 Type 2 diabetes mellitus without complications; E86.1 Hypovolemia; I10 Essential (primary) hypertension; F43.10 Post-traumatic stress disorder, unspecified; F31.9 Bipolar disorder, unspecified; J44.9 Chronic obstructive pulmonary disease, unspecified; G62.0 Drug-induced polyneuropathy; K21.9 Gastro-esophageal reflux disease without esophagitis; F17.200 Nicotine dependence, unspecified, uncomplicated; L40.9 Psoriasis, unspecified; E78.00 Pure hypercholesterolemia, unspecified; F10.21 Alcohol dependence, in remission; Z88.0 Allergy status to penicillin; Z86.718 Personal history of other venous thrombosis and embolism; Z79.84 Long term (current) use of oral hypoglycemic drugs; Z86.711 Personal history of pulmonary embolism; Z91.040 Latex allergy status
CPT/HCPCS: 36415; 70496; 70498; 70551; 71046; 71275; 80048; 80053; 80061; 81001; 82150; 82962; 83036; 83690; 83735; 84100; 84443; 84484; 85025; 85379; 85610; 85730; 93306; 93886; G0378; J1815

== ENCOUNTER 2025-07-11 22:26 | Inpatient (IN) | payer BC, MEDICARE, OTHER ==
[~2025-07-11] VITALS: Ht 165.1 cm; Wt 88.5 kg
[~2025-07-11 22:26] MED LIST changes: -FLUC100T34 PO; -PRAZ1CAP2 PO; -TAMS0.4C39 PO
[2025-07-11] MEDS ORDERED: NITROGLYCERIN 0.4 MG SL TAB SL PRN ×2 (23:00→23:15)
--- NOTE | 2025-07-11 23:39 | DVHHP2 ---
Admitting Diagnosis: Recurrent palpitations Ventricular arrhythmias Recurrent dizziness Suspect impending TIA/CVA History of Present Illness 65-year-old middle-aged white male with known history of hypertension, NIDDM Hypercholesterolemia, obesity, COPD and nonocclusive CAD is directly admitted for further eval and management of signs symptoms of recurrent dizziness, Palpitations, irregular heartbeats and intermittent myoclonus type tremors vs possible withdrawal symptoms x 3-4 weeks, getting worse in last 24 hours. He reports intermittent symptoms of feeling thumping sensation in his chest from irregular heartbeats. He further adds that because of all these symptoms He could not sleep very well last night and has a mid frontal headache He also reports to have short-term memory loss. It is noteworthy that patient has been evaluated for multiple PVCs-17% noted outpatient evaluation as recommended by Dr. Yovany Moore and Dr. Rowland storage worker. He has been prescribed flecainide by storage worker at [place] Apparently he did not respond very well to flecainide. Since patient remains symptomatic from recurrent PVCs, he has been referred to Dr. Minor EP cardiology at [facility]. He has been scheduled to receive ablation as of 2024. For symptoms of recurrent dizziness, he has been taken off from medications like prazosin and Flomax since 2024. Moreover he reports to have quit drinking alcohol for last 18 months except lately he has been drinking 0 % alcohol beer. Because of his symptoms of palpitation - Pulse rate varying from 150-160 with multiple PACs and PVC versus artifacts- and concurrent neurologic symptoms, I attended the patient at my office at mid-evening hours of 07/11/2025. He was noted to be hypertensive with blood pressure high at 180/100-improved to 153/96 mm, noted HR 75 to? 140-161/min on mobility device with recurrent PVCs, bigeminy and trigeminy There was no focal deficit on physical exam but concern of sudden embolic neurologic event. He has been on Eliquis. Recommended patient to receive Hospitalization at telemetry bed for further eval of his recurrent symptoms Palpitation, thumping sensation in chest, dizziness, and possible withdrawal/ Myoclonic jerks Past Medical History Past Medical History records reviewed Cardiovascular history : Long history of hypertension with recurrent angina * Received coronary angiographic evaluation in 2014 and 2024 Noted 50% non occlusive disease of RCA * Recurrent PVCs-received outpatient eval by Dr. Higgins and Dr. Rowland Cardiology -also seen by storage worker, [place] at [place]-treated with Flecainide without successful improvement in PVCs * Currently followed by Dr. Minor at [facility] 2. Deep venous thrombosis Recent history of DVT affecting R brachiocephalic vein from angio cath Treated at 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 Milton orthopedist Psychiatric History : PTSD-anxiety mixed with depression Schizoaffective bipolar depression-receives psychotropic medication prescribed by physicians of the [place] [facility] Past Surgical History ROTATOR CUFF REPAIR R shoulder ACROMIOPLASTY, EXCISION OF THE DISTAL END CLAVICLE, LYSIS OFACHROMIAL LIGAMENT, DEBRIDEMENT/REPAIR OF THE LABRUM OF THE RIGHT SHOULDER Right 07/22/2021 Procedure: ROTATOR CUFF REPAIR ADHESIONS, BICEP TENOSYNOVECTOMY, Surgeon: Kiki Milton MD; Location: [facility] MAIN OR Bilateral SHOULDER ARTHROSCOPY- Left x 3 right x 4 SPINE SURGERY SACRAL LAMINOPLASTY AND MICROSURGICAL REPAIR OF TARLOV CYST SPINAL CORD UNTETHERING WITH AUTOLOGOUS FAT GRAFT AND DURAL DRAFTING at [place] Surgeon: Ange ? Resection of lipoma from upper back. ? Linwood filter placement in inferior vena cava 2006 Social History Retired , , lives with his spouse, permanently disabled From bilateral shoulder rotator cuff injuries Tobacco Use Smoking status: Smoker Passive exposure: Never Smokeless tobacco: Never Vaping Use Vaping status: Never Used Substance Use Topics Alcohol use: Yes Alcohol/week: Was used to be drinking seven beers a week, He claims to have quit drinking 18 months ago Lately resume drinking 0% alcohol Drug use: Never Patient Family History: Alcoholism G8 FATHER Diabetes mellitus G8 MOTHER Eczema G8 FATHER Psoriasis G8 MOTHER Allergies: Coded Allergies: Ampicillin (Verified Allergy, Unknown, 10/22/23) Latex (Verified Allergy, Unknown, 10/22/23) Home Meds Active Scripts Metformin Hydrochloride (Metformin Hcl Er) 500 Mg Tab, 1 TAB PO BID for 30 Days, #60 TAB 2 Refills Hold if N/V/Diarrhea DO not drink alcohol- may cause life threatening lactic acidosis Prov:ROSIE JOHNSON MD 09/23/24 Alum & Mag Hydrox-Simethicone (Maalox Plus) 30 Ml Ss, 15 ML GT ACHS, #450 ML 2 Refills Prov:ROSIE JOHNSON MD 10/26/23 Sucralfate (Sucralfate) 1 Gm Tab, 1 GM PO QIDACHS for 30 Days, #120 TAB 1 Refill Prov:ROSIE JOHNSON MD 10/26/23 Pantoprazole Sodium Sesquihydr (Pantoprazole Sodium) 40 Mg Tab, 40 MG PO BID for 45 Days, #90 TAB Prov:ROSIE JOHNSON MD 10/26/23 Valsartan (Valsartan) 160 Mg Tab, 1 TAB PO BID for 30 Days, #60 TAB 2 Refills Hold if SBP <110 Call PMD if angioedema of lips Prov:ROSIE JOHNSON MD 10/26/23 Atorvastatin Calcium (Lipitor) 20 Mg Tab, 20 MG PO DAILY for 90 Days, #90 TAB Hold if calf muscle cramps Prov:ROSIE JOHNSON MD 10/26/23 Apixaban Base (ELIQUIS) 5 Mg Tab, 5 MG PO BID for 30 Days, #60 TAB 2 Refills Hold if internal bleeding Prov:ROSIE JOHNSON MD 10/26/23 Reported Medications Nitroglycerin (NTROSTAT SUBLINGUAL) 0.4 Mg Sl, 0.4 MG SL PRN PRN for FOR CHEST PAIN, TAB *MAY REPEAT EVERY 5 MINUTES X 3 TOTAL IF NO RELIEF, INITIATE ANALGESIC THERAPY. NOTIFY PHYSICIAN *Do not crush. 10/23/23 Clonidine Hydrochloride (Clonidine Hcl) 0.1 Mg Tab, 0.1 MG PO TID PRN for SBP>160, TAB 10/23/23 Quetiapine Fumerate (Seroquel) 50 Mg Tab, 25 MG PO DAILY, TAB 10/23/23 Metoprolol Succinate (Metoprolol Succinate Er) 25 Mg Tab, 1 TAB PO DAILY 10/23/23 Insulin Lispro (Insulin Lispro) 100 Unit/Ml Inj, 100 UNIT IJ UD, INJ 10/23/23 Glipizide (Glipizide) 5 Mg Tab, 5 MG PO QAM, TAB 10/23/23 Fenofibrate (Tricor) 48 Mg Tab, 48 MG PO BID, TAB 10/23/23 Amlodipine Besylate (Amlodipine Besylate) 5 Mg Tab, 1 TAB PO DAILY 10/23/23 Alogliptin Benzoate (Alogliptin) 25 Mg Tab, 25 MG PO DAILY 10/23/23 Current Medications Current Medications Medications (Trade) Dose Ordered Sig/Popeye Route PRN Reason Start Time Stop Time Status Last Admin Insulin Human Lispro (HumaLOG) HS SC 07/12/25 22:00 07/12/25 22:58 Folic Acid 1 mg/ Magnesium Sulfate 8 meq/ Multivitamins 5 ml/Thiamine HCl 100 mg/Sodium Chloride 1,008.2 ml @ 80 mls/hr DAILY@1800 INJ 07/13/25 18:00 07/14/25 06:37 Atropine Sulfate (Atropine Sulfate) 0.4 mg Q1HR PRN IV HEART RATE BELOW 35/SBP <90 07/12/25 13:15 07/12/25 13:24 DC Atropine Sulfate (Atropine Sulfate) 0.4 mg Q1HR PRN IV HEART RATE BELOW 35/SBP <90 07/12/25 13:30 07/12/25 21:18 DC Atropine Sulfate (Atropine Sulfate) 0.4 mg Q1HR PRN IV HEART RATE BELOW 35/SBP <90 07/12/25 21:15 Carvedilol (Coreg Tablet) 6.25 mg Q12HR PO 07/12/25 22:00 Al Hydrox/Mg Hydrox/Simethicone (Maalox Plus) 15 ml ACHS GT 07/13/25 08:00 07/13/25 08:00 Review of Systems Constitutional: Denies easy tiredness, denies fever chills weight loss HEENT: Denies headache/conjunctival/ENT pains or congestion, Dr. Watts's office may help you Denies hoarse voice, hearing or visual deficit Neck: Denies cervical spine local/radicular pains, denies goiters/stridor Denies stiffness spasms, reduced ROM, RS: Denies chest congestion, cough, wheezing, SOB, pleuritic chest pains CVS: Reports thumping sensation in chest, irregular heartbeats, Denies SOB, edema, orthopnea, PND GI: Denies loss of appetite, abdominal pains, tenderness, N/V/D, Denies melena, GI bleeding,constipation, : Denies dysuria, flank pains, frequency, hematuria, Denies passing foul odor/cloudy turbid urine, nocturia MS: Denies generalized aches/pains, back pains, spasms, stiffness, Denies radicular pains, denies generalized myalgias/muscle weakness EXTs: Denies edema, rash, open wounds, discoloration, radicular pains NEURO: Recurrent dizziness Denies hypersomnolence, confused mental status, Recurrent myoclonic jerks type tremors of RUE Denies focal weakness or seizures/tremors/myoclonic jerks SKIN: Denies rashes or open ulcerated wound ENDOCRINE: Reports polyuria, polydipsia, denies intolerance to heat and cold HEM/LYMPH: Denies easy tiredness, bruising, lymphadenopathy ALLERGY: Denies allergic reactions Psychiatry: Denies anxiety or depression disorder Otherwise the Review of Systems is Negative as per History & Physical Interview: Yes Vital Signs Vital Signs Date Time Temp Pulse Resp B/P (MAP) Pulse Ox O2 Delivery O2 Flow Rate FiO2 07/13/25 08:00 52 14 95 Room Air* 0 21 07/13/25 08:00 135/71 (92) 07/13/25 07:00 97.8 97.8 Physical Exam The GEJ in a of his Vital Sign Date Time Temp Pulse Resp B/P (MAP) Pulse Ox O2 Delivery O2 Flow Rate FiO2 07/12/25 1:00 73 14 142/74 97 07/12/25 00:01 97.8 55 12 153/80 97 07/11/25 2130 16 153/94 97 Room Air* 0 21 At my office 07/11/2025 21:00 97.6 76 18 180/100 98 At my office Physical exam General appearance: Well-developed, obese built middle-aged white male Awake alert oriented x3 no respiratory distress Head: Normocephalic nontraumatic Eyes: EOM- full, no nystagmus, no diplopia VALENTINO, sclera nonicteric, conjunctive-p clotilde, eyeballs sunken +2 ENT: No congestion, NSL bilateral symmetrical, oral mucosa dry+2 Neck: Supple, carotid upstroke +2, trachea R off midline, JVD-3 cm, C spine- Full ROM No thyroid or lymph node , no use of sternomastoid muscle Chest: Bilateral symmetrical expansions, L sided Costochondral tenderness Lungs: clear breath sounds all over except reduced at bases CVS: PMI-1 cm medial to L MCL in fifth ICS , S1- S2 NSR no S3 GI: Abdomen soft, obese, bowel sounds normoactive No focal tenderness, no rebound ten derness No hepatosplenomegaly, no mass no hernia , : No CVA tenderness, no bladder mass palpable, genitalia-NE SKIN: Turgor -dry, color pink, no rash, no icterus, No varicosity, no ulcers or wounds EXTs: No edema, color pink, no rash, no ecchymosis distal pulses +2 capillary refill <2 seconds, No open wounds JOINTS: Reduced range of motion at shoulders BACK: No apparent lumbosacral spinal muscle tenderness, LYMPH NODES: No cervical, axillary or inguinal lymph nodes Neuro: Awake alert oriented 4, coherent, all cognitives- intact No pronator drift, no focal motor deficit, Changes of peripheral neuropathy Exhtbo-ld-dhhc dysmetria present, DTR +2, Romberg's positive Gait- leans to the left, wide at spell of dizziness PSYCH: Affect mildly depressed-denies suicidal ideation Diagnostic lab results Labs Test 07/12/2025 0759 Range/Units POC Glucose 70-106 mg/dl Sodium Level 143 136-145 mmol/L Potassium Level 4.4 3.5-5.1 mmol/L Chloride Level 108 H 98-107 mmol/L Carbon Dioxide Level 24 20-31 mmol/L Anion Gap 11 5-15 Blood Urea Nitrogen 6 9-23 mg/dL Creatinine 0.94 0.700-1.30 mg/dL Glomerular Filtration Rate Calc 91 >90 mL/min BUN/Creatinine Ratio 6.4 10.0-20.0 Serum Glucose 143 74-106 mg/dL Calcium Level 9.8 8.7-10.4 mg/dL Total Bilirubin 0.9 0.2-1.0 mg/dL Aspartate Amino Transferase (AST) 32 13-40 U/L Alanine Aminotransferase (ALT) 23 7-40 U/L Alkaline Phosphatase 66 46-116 U/L Total Protein 7.4 5.7-8.2 g/dL Albumin 4.6 3.2-4.8 g/dL Phosphorus Level 3.9 2.4-5.1 mg/dL Magnesium Level 1.7 1.6-2.6 mg/dL Test 07/12/2025 00:00 Range/Units White Blood Count 7.6 4.4-10.8 10^3/uL Red Blood Count 4.7 4.5-5.90 10^6/uL Hemoglobin 14.5 13.5-17.5 g/dL Hematocrit 42.1 41.0-53.0 % Mean Corpuscular Volume 89.6 80.0-100.0 fL Mean Corpuscular Hemoglobin 30.8 28.0-32.0 pg Mean Corpuscular Hemoglobin Concent 34.3 32.0-36.0 g/dL Red Cell Distribution Width 14.5 11.8-14.3 % Platelet Count 246 140-450 10^3/uL Mean Platelet Volume 8.4 6.9-10.8 fL Neutrophils (%) (Auto) 56.7 37.0-80.0 % Lymphocytes (%) (Auto) 30.6 10.0-50.0 % Monocytes (%) (Auto) 9.9 0.0-12.0 % Eosinophils (%) (Auto) 1.7 0.0-7.0 % Basophils (%) (Auto) 4.3 0.0-2.0 % Neutrophils # (Auto) 2.3 1.6-8.6 10 ^3/uL Lymphocytes # (Auto) 0.8 0.4-5.4 10 ^3/uL Monocytes # (Auto) 0.1 0-1.3 10 ^3/uL Eosinophils # (Auto) 0.1 0-0.8 10 ^3/uL Basophils # (Auto) 0.1 0-0.2 10 ^3/uL Nucleated Red Blood Cells % Hemoglobin A1c <5.7 % A1C Troponin I High Sensitivity </=54 ng/L Triglycerides Level < 150 mg/dL Cholesterol Level < 200 mg/dL LDL Cholesterol < 100 mg/dL HDL Cholesterol 40-59 mg/dL Prothrombin Time 9.3-11.8 sec Prothrombin Time INR 0.9-1.15 Activated Partial Thromboplast Time 24.5-34.5 SEC D-Dimer, Quantitative 0.0-0.49 mg/L FEU Amylase Level 30-118 U/L Lipase 12-53 U/L Thyroid Stimulating Hormone (TSH) 07/12/2025 0:00 2.58 0.55-4.78 uIU/mL 07/12/2025 3:58 Urine Color Colorless Yellow Urine Clarity Clear Clear Urine pH 7.0 5.0-9.0 Urine Specific [place] 1.008 1.001-1.035 Urine Protein Negative Negative Urine Ketones Negative Negative Urine Blood Negative Negative /uL Urine Nitrite Negative Negative Urine Bilirubin Negative Negative Urine Urobilinogen Normal Negative mg/dL Urine Leukocyte Esterase Negative Negative /uL Urine RBC None 0 - 3 /hpf Urine Microscopic WBC < 1 0-3 /HPF Urine Squamous Epithelial Cells None seen <5 /hpf Urine Bacteria None seen None Seen /hpf Urine Glucose Normal Normal mg/dL SEPSIS Sepsis Screen Physician Orders Admit (07/11/25 23:00) Nitroglycerin Sublingual (Ntrostat Subli (07/11/25 23:00) Morphine Sulfate Injection (07/11/25 23:00) Stat Ekg For Chest Pain (07/11/25 22:46) Notify Of Changes From Base (07/11/25 22:46) Certifed Refrigeration Operator For 24 Hours (07/11/25 22:46) Emergency Dysrhythmia Protocol (07/11/25 22:46) Rhythm Strips Once Every Shift (07/11/25 22:46) Oxygen By Nasal Cannula (07/11/25 23:00) Apixaban (Eliquis) (07/12/25 10:00) Pantoprazole Tablet (Protonix Tablet) (07/12/25 10:00) Sucralfate Tab (Carafate Tab) (07/12/25 07:00) Atorvastatin (Lipitor) (07/12/25 10:00) Electrocardigram (07/14/25 08:00) Lorazepam Tablet (Ativan Tablet) (07/11/25 23:15) Valsartan (Diovan) (07/12/25 08:00) Insulin Lispro (Human) (Humalog) (07/12/25 07:00) Insulin Lispro (Human) (Humalog) (07/12/25 22:00) Glucose Blood (Accu-Chek Comfort Curve T (07/12/25 07:00) Ct Head Neck With Cont (07/12/25 08:00) Carotid Duplx W Color Dop (07/12/25 00:01) Chest Xray 1 View (07/11/25 23:35) Echo 2d Mode Cardiac Dop (07/12/25 23:14) Cardiac Diet-2gna,Lofat,Lochol (07/12/25 Breakfast) Pharmacy Clarification: (07/12/25 09:32) Folic Acid... (07/13/25 18:00) Transfer Orders (07/12/25 19:28) Atropine Adult Syr 0.1mg/Ml (Atropine Wu (07/12/25 21:15) Carvedilol Tablet (Coreg Tablet) (07/12/25 22:00) Alum & Mag Hydrox-Simethicone (Maalox Pl (07/13/25 08:00) Brain Head Wo Contrast (07/13/25 21:20) Vital Signs Date Time Temp Pulse Resp B/P (MAP) Pulse Ox O2 Delivery O2 Flow Rate FiO2 07/13/25 08:00 52 14 95 Room Air* 0 21 07/13/25 08:00 61 12 135/71 (92) 95 07/13/25 07:30 56 14 126/78 (94) 94 07/13/25 07:00 97.8 44 12 139/70 (93) 94 97.8 07/13/25 06:30 53 16 139/70 (93) 96 07/13/25 06:00 45 07/13/25 06:00 47 17 124/71 (88) 95 07/13/25 05:30 52 13 132/71 (91) 93 07/13/25 05:00 52 15 123/79 (94) 90 07/13/25 04:30 46 12 123/79 (94) 95 07/13/25 04:00 97.9 54 16 123/79 (94) 95 97.9 07/13/25 04:00 48 07/13/25 03:30 50 12 123/79 (94) 94 07/13/25 03:00 47 10 123/75 (91) 95 07/13/25 02:30 44 15 126/75 (92) 94 07/13/25 02:00 46 07/13/25 02:00 55 15 126/75 (92) 94 07/13/25 01:30 49 12 108/66 (80) 94 07/13/25 01:00 53 12 108/66 (80) 95 07/13/25 00:30 58 12 116/66 (83) 93 07/13/25 00:00 98.2 51 12 116/66 (83) 93 98.2 07/13/25 00:00 36 07/12/25 23:00 46 13 116/66 (83) 94 07/12/25 22:00 35 12 108/61 (77) 93 07/12/25 22:00 45 07/12/25 21:51 38 108/61 07/12/25 21:00 52 16 108/61 (77) 94 07/12/25 20:00 54 12 96 Room Air* 0 21 07/12/25 20:00 98.2 60 16 108/61 (77) 97 98.2 07/12/25 19:00 67 15 108/61 (77) 97 07/12/25 18:00 55 14 129/67 (87) 96 07/12/25 18:00 56 07/12/25 17:00 55 14 119/77 (91) 96 07/12/25 16:00 52 07/12/25 16:00 97.8 63 10 157/80 (105) 96 97.8 07/12/25 15:00 65 14 157/84 (108) 96 07/12/25 14:00 59 13 142/71 (94) 94 07/12/25 14:00 58 07/12/25 13:00 97.7 63 10 154/87 (109) 96 97.7 07/12/25 12:00 56 07/12/25 12:00 55 13 128/71 (90) 95 07/12/25 11:00 64 13 123/56 (78) 93 07/12/25 10:00 69 14 139/89 (106) 96 07/12/25 10:00 68 07/12/25 09:37 50 123/56 07/12/25 09:00 67 9 130/80 (97) 95 07/12/25 08:37 73 133/81 07/12/25 08:00 66 07/12/25 08:00 97.6 66 13 144/75 (98) 95 97.6 07/12/25 08:00 133/81 07/12/25 08:00 70 12 96 Room Air* 0 21 07/12/25 07:00 67 12 144/75 (98) 95 07/12/25 06:00 62 07/12/25 06:00 86 15 123/77 (92) 89 07/12/25 05:00 61 13 127/69 (88) 93 07/12/25 04:00 67 13 95 07/12/25 04:00 67 07/12/25 03:00 67 15 135/73 (93) 95 07/12/25 02:00 63 22 132/72 (92) 93 07/12/25 02:00 63 07/12/25 01:46 65 14 132/72 07/12/25 01:16 70 16 142/72 07/12/25 01:00 73 14 142/74 (96) 97 07/12/25 00:19 74 16 97 Room Air* 0 21 07/12/25 00:19 97.8 74 153/80 (104) 97 97.8 07/12/25 00:01 55 12 153/80 (104) 97 07/12/25 00:00 71 07/11/25 23:59 97.8 68 12 162/71 (101) 96 97.8 Laboratory Tests Test 07/12/25 00:00 07/12/25 07:59 White Blood Count 7.6 10^3/uL (4.4-10.8) 6.5 10^3/uL (4.4-10.8) Medications Medications Dose Ordered Sig/Popeye Route Start Time Stop Time Status Last Admin Dose Admin Al Hydrox/Mg Hydrox/Simethicone 15 ml ACHS GT 07/13/25 08:00 07/13/25 08:00 Results Labs Test 07/13/25 05:48 07/13/25 03:49 07/12/25 07:59 07/12/25 03:50 Range/Units POC Glucose 116 H 70-106 mg/dl Sodium Level 143 136-145 mmol/L Potassium Level 4.1 3.5-5.1 mmol/L Chloride Level 109 H 98-107 mmol/L Carbon Dioxide Level 22 20-31 mmol/L Anion Gap 12 5-15 Blood Urea Nitrogen 10 9-23 mg/dL Creatinine 0.80 0.700-1.30 mg/dL Glomerular Filtration Rate Calc 99 >90 mL/min BUN/Creatinine Ratio 12.5 10.0-20.0 Serum Glucose 101 74-106 mg/dL Calcium Level 9.5 8.7-10.4 mg/dL Magnesium Level 2.2 1.6-2.6 mg/dL Total Bilirubin 0.9 0.2-1.0 mg/dL Aspartate Amino Transferase (AST) 21 13-40 U/L Alanine Aminotransferase (ALT) 20 7-40 U/L Alkaline Phosphatase 61 46-116 U/L Total Protein 6.4 5.7-8.2 g/dL Albumin 4.3 3.2-4.8 g/dL White Blood Count 6.5 4.4-10.8 10^3/uL Red Blood Count 4.93 4.5-5.90 10^6/uL Hemoglobin 15.2 13.5-17.5 g/dL Hematocrit 44.7 41.0-53.0 % Mean Corpuscular Volume 90.7 80.0-100.0 fL Mean Corpuscular Hemoglobin 30.8 28.0-32.0 pg Mean Corpuscular Hemoglobin Concent 33.9 32.0-36.0 g/dL Red Cell Distribution Width 14.4 H 11.8-14.3 % Platelet Count 243 140-450 10^3/uL Mean Platelet Volume 7.8 6.9-10.8 fL Neutrophils (%) (Auto) 60.2 37.0-80.0 % Lymphocytes (%) (Auto) 27.3 10.0-50.0 % Monocytes (%) (Auto) 9.3 0.0-12.0 % Eosinophils (%) (Auto) 2.0 0.0-7.0 % Basophils (%) (Auto) 1.2 0.0-2.0 % Neutrophils # (Auto) 3.9 1.6-8.6 10 ^3/uL Lymphocytes # (Auto) 1.8 0.4-5.4 10 ^3/uL Monocytes # (Auto) 0.6 0-1.3 10 ^3/uL Eosinophils # (Auto) 0.1 0-0.8 10 ^3/uL Basophils # (Auto) 0.1 0-0.2 10 ^3/uL Nucleated Red Blood Cells 0.0 % Triglycerides Level 74 < 150 mg/dL Cholesterol Level 121 < 200 mg/dL LDL Cholesterol 63 < 100 mg/dL HDL Cholesterol 42 40-59 mg/dL Urine Color Colorless Yellow Urine Clarity Clear Clear Urine pH 7.0 5.0-9.0 Urine Specific [place] 1.008 1.001-1.035 Urine Protein Negative Negative Urine Ketones Negative Negative Urine Blood Negative Negative /uL Urine Nitrite Negative Negative Urine Bilirubin Negative Negative Urine Urobilinogen Normal Negative mg/dL Urine Leukocyte Esterase Negative Negative /uL Urine RBC None seen 0 - 3 /hpf Urine Microscopic WBC < 1 0-3 /HPF Urine Squamous Epithelial Cells None seen <5 /hpf Urine Bacteria None seen None Seen /hpf Urine Glucose Normal Normal mg/dL Test 07/12/25 02:39 07/12/25 01:16 07/12/25 00:00 Range/Units Troponin I High Sensitivity 28 </=54 ng/L Prothrombin Time 11.4 9.3-11.8 sec Prothrombin Time INR 1.08 0.9-1.15 Activated Partial Thromboplast Time 28.7 24.5-34.5 SEC D-Dimer, Quantitative < 0.19 0.0-0.49 mg/L FEU Phosphorus Level 3.6 2.4-5.1 mg/dL C-Reactive Protein High Sensitivity 0.06 <1.0 mg/dL Hemoglobin A1c 6.6 H <5.7 % A1C B-Type Natriuretic Peptide 18.85 0-100 pg/mL Vitamin B12 Level 519 211-911 pg/mL Thyroid Stimulating Hormone (TSH) 2.58 0.55-4.78 uIU/mL Microbiology Date/Time Source Procedure Growth Status 07/12/25 00:00 Nose MRSA Screen - Final Complete Primary Diagnosis 1. Recurrent dizziness -rule out cerebellar CVA Rule out occlusive carotid artery disease 2. Recurrent PVCs-ventricular arrhythmias possible paroxysmal SVT Admitting Diagnosis: 1. Recurrent dizziness -rule out cerebellar CVA Rule out occlusive carotid artery disease Inadvertent effect of medications 2. Recurrent PVCs-ventricular arrhythmias possible paroxysmal SVT 3. Uncontrolled hypertension 4. Fairly well-controlled NIDDM 3. Recurrent presyncope 4. Recurrent premature ventricular beats 5. Hypovolemia 6. Fairly well-controlled NIDDM antihypertension 2' Diagnosis/Comorbidities 1. Exogenous obesity in adult with current BMI 30-35 kilogram/meters squared 2. Prior history of alcoholism Medical decision making: The patient appears to be clinically ill from symptom complex of recurrent Palpitations, irregular heartbeats, thumping sensation in chest and recurrent Dizziness along with tremors of upper extremities suggestive of withdrawals * Patient brought in a a mobile device which shows multiple PVCs, Bigeminy and trigeminy as well as a short spell of tachycardia Multiple artifacts due to movements-? SVT at rate of 140-160 per minute * Possible etiologic cause is uncontrolled hypertension, anxiety ? cardiomyopathy and possible Alcohol withdrawals * The patient has significant cardiac risk factors fairly well-controlled NIDDM, hypertension, Hypercholesterolemia and obesity History of 50-60% nonocclusive CAD-unchanged finding since prior coronary artery study 2014 * possible embolic event causing cerebellar dysfunction. He Gets intermittent spells of dizziness, myoclonic jerks * He is also noted to have hypovolemia Plan Admit to telemetry bed Order 2D echo, carotid artery duplex study Order CT scan of head and neck Serial 12 lead EKG and serum troponins Recommend 0.4 mg SL NTG and Ecotrin IV hydration with banana bag infusion Lorazepam for anxiety Continue valsartan, and reduce dose of metoprolol IV morphine for anginal chest pain refractory to NTG Cautious IV hydration Continue Eliquis Accu-Chek q.a.c. and HS Humalog through sliding scale Reconcile home medications Consider neurology consult as warranted VTE precautions Update patient The patient and his spouse were well informed by me about 1. Clinical impression, treatment plans, side effects of medications, course of the disease and prognosis 2. All patient's question/ concerns raised by patient are satisfactorily addressed by me Total time spent 120 minutes 40% of time spent interviewing the patient and physical exam 30% of time spent in gathering lab datas and imaging studies 30 % of time is spent in patient education Plan discussed with: Patient ROSIE JOHNSON MD Jul 11, 2025 23:38
[2025-07-11 23:59] VITALS: BP 162/71; PULSE 68; RESP 12; TEMP 97.8; O2SAT 96
[2025-07-12] VITALS (26 sets, daily range): BP systolic 108–157; BP diastolic 56–89; PULSE 35–86; RESP 9–22; TEMP 97.6–98.2; O2SAT 89–97
[2025-07-12 00:31] LABS: Hematocrit 42.1 % (41.0-53.0); Hemoglobin 14.5 g/dL (13.5-17.5); Mean Corpuscular Hemoglobin 30.8 pg (28.0-32.0); Mean Corpuscular Volume 89.6 fL (80.0-100.0); Nucleated Red Blood Cells % 0.1 %
[2025-07-12] MEDS: MORPHINE SULFATE INJ 2 MG/ml SYRG IV PRN (01:16)
[2025-07-12] MEDS: LORazepam 0.5 MG TAB PO PRN (01:32)
[2025-07-12 01:42] LABS: Anion Gap 12 (5-15)
[2025-07-12 01:48] LABS: INR 1.08 (0.9-1.15); Partial Thromboplastin Time 28.7 SEC (24.5-34.5); Prothrombin Time 11.4 sec (9.3-11.8)
[2025-07-12 01:58] LABS: Alkaline Phosphatase 64 U/L (46-116); Bilirubin, Total 0.5 mg/dL (0.2-1.0); Calcium 9.7 mg/dL (8.7-10.4); Carbon Dioxide 23 mmol/L (20-31); Chloride 108 mmol/L (98-107); Glucose 95 mg/dL (74-106); Magnesium 2.0 mg/dL (1.6-2.6); Potassium 3.8 mmol/L (3.5-5.1); Sodium 143 mmol/L (136-145); Total Protein 7.0 g/dL (5.7-8.2)
[2025-07-12 01:59] LABS: BUN/Creatinine Ratio 9.5 (10.0-20.0)
[2025-07-12 02:11] LABS: Alanine Aminotransferase 18 U/L (7-40); Albumin 4.3 g/dL (3.2-4.8); Blood Urea Nitrogen 9 mg/dL (9-23)
--- NOTE | 2025-07-12 04:35 | DVH ---
Carotid Duplex Clinical History: Feeling dizzy, tremors and memory loss Comparison: US CAROTID DUPLX W COLOR DOP on DOS: 09/20/24 Technique: Duplex Doppler evaluation of the extracranial carotid and vertebral arteries including color Doppler and spectral/pulsed waveform analysis was performed. Findings: RIGHT SIDE: The peak systolic velocities are 88 cm/s in the CCA, 102 cm/s in the ICA. The ICA/CCA ratio is 1.2. The external carotid artery is patent with peak systolic velocity of 104 cm/s proximally. The subclavian artery is patent with peak systolic velocity of n/a cm/s. There is appropriate antegrade flow in the right vertebral artery. LEFT SIDE: The peak systolic velocities are 78 cm/s in the CCA, 112 cm/s in the ICA. The ICA/CCA ratio is 1.4. The external carotid artery is patent with peak systolic velocity of 109 cm/s proximally. The subclavian artery is patent with peak systolic velocity of n/a cm/s. There is appropriate antegrade flow in the left vertebral artery. IMPRESSION: No hemodynamically significant stenosis noted in the right carotid system. No hemodynamically significant stenosis noted in the left carotid system. Reference: Radiology 2003; 229:340-346 Normal ICA PSV is <125 cm/sec and no plaque or intimal thickening is visible sonographically additional criteria include ICA/CCA PSV ratio <2.0 and ICA EDV <40 cm/sec <50% ICA stenosis ICA PSV is <125 cm/sec and plaque or intimal thickening is visible sonographically additional criteria include ICA/CCA PSV ratio <2.0 and ICA EDV <40 cm/sec 50-69% ICA stenosis ICA PSV is 125-230 cm/sec and plaque is visible sonographically additional criteria include ICA/CCA PSV ratio of 2.0-4.0 and ICA EDV of 40-100 cm/sec 70% ICA stenosis but less than near occlusion ICA PSV is >230 cm/sec and visible plaque and luminal narrowing are seen at ha-scale and color Doppler ultrasound (the higher the Doppler parameters lie above the threshold of 230 cm/sec, the greater the likelihood of severe disease) additional criteria include ICA/CCA PSV ratio >4 and ICA EDV >100 cm/sec
[2025-07-12 04:54] LABS: Urine Protein, UAD Negative (Negative)
[2025-07-12] MEDS: SUCRALFATE 1 GM TAB PO SCH (06:48)
[2025-07-12] MEDS: ACCU-CHEK COMFORT CURVE STRIP VI SCH (06:49)
[2025-07-12] MEDS: INSULIN LISPRO (HUMAN) 100 UNITS/ML ML SC SCH ×2 (06:49→22:58)
[2025-07-12] MEDS: ALUM & MAG HYDROX-SIMETH LIQ(MAALOX) 30 ML GT SCH (07:00)
[2025-07-12] MEDS: VALSARTAN 80 MG TAB PO SCH (08:00)
[2025-07-12 08:11] LABS: Hematocrit 44.7 % (41.0-53.0); Hemoglobin 15.2 g/dL (13.5-17.5); Mean Corpuscular Hemoglobin 30.8 pg (28.0-32.0); Mean Corpuscular Volume 90.7 fL (80.0-100.0); Nucleated Red Blood Cells % 0.0 %
[2025-07-12 08:27] LABS: Alanine Aminotransferase 23 U/L (7-40); Albumin 4.6 g/dL (3.2-4.8); Alkaline Phosphatase 66 U/L (46-116); Anion Gap 11 (5-15); BUN/Creatinine Ratio 6.4 (10.0-20.0); Calcium 9.8 mg/dL (8.7-10.4); Carbon Dioxide 24 mmol/L (20-31); Potassium 4.4 mmol/L (3.5-5.1); Sodium 143 mmol/L (136-145); Total Protein 7.4 g/dL (5.7-8.2); Triglycerides 74 mg/dL (< 150)
[2025-07-12 08:28] LABS: Bilirubin, Total 0.9 mg/dL (0.2-1.0); Blood Urea Nitrogen 6 mg/dL (9-23); Chloride 108 mmol/L (98-107); Cholesterol 121 mg/dL (< 200); Glucose 143 mg/dL (74-106); HDL Cholesterol 42 mg/dL (40-59)
[2025-07-12] MEDS: APIXABAN 5 MG TAB PO SCH (08:36)
[2025-07-12] MEDS: PANTOPRAZOLE 40 MG TAB PO SCH (08:37)
[2025-07-12] MEDS: METOPROLOL TARTRATE 50 MG TAB PO SCH (08:37)
[2025-07-12] MEDS: ATORVASTATIN 20 MG TAB PO SCH (08:37)
--- NOTE | 2025-07-12 09:55 | ECG ---
[facility] Test Date: 2025-07-12 Test Time: 00:12:35 Pat Name: IKE ISRAEL Department: Respiratoy Room: [address] [place] [address] Gender: M Standpipe Tender: YOHANA : 1960 Requested By: ROSIE JOHNSON Order Number: [id number] Reading MD: Harrison Levi Measurements Intervals [place] Rate: 70 P: 66 CA: 178 QRS: 36 QRSD: 98 T: 27 QT: 388 QTc: 419 Interpretive Statements Sinus rhythm Electronically Signed On 07-17-2025 9:47:14 PST by Harrison Levi Please click the below link to view image of tracing.
--- NOTE | 2025-07-12 10:19 | DVH ---
EXAM: XY CHEST XRAY 1 VIEW CLINICAL HISTORY: CHF TECHNIQUE: Single AP view of the chest WID: COMPARISON: XY CHEST PORTABLE on DOS: 10/22/23 FINDINGS: Lines and tubes: None Chest: The heart size and pulmonary vasculature is within normal limits. No pleural effusion, pneumothorax, or consolidation. The osseous structures are grossly intact. Mild degenerative change of the bilateral acromioclavicular joints. IMPRESSION: 1. No acute cardiopulmonary abnormality.
--- NOTE | 2025-07-12 12:36 | ECG ---
[facility] Test Date: 2025-07-12 Test Time: 12:29:05 Pat Name: IKE ISRAEL Department: Respiratoy Room: [address] [place] [address] Gender: M Compliance Engineer: sheryl : 1960 Requested By: ROSIE JOHNSON Order Number: [id number] Reading MD: Harrison Levi Measurements Intervals [place] Rate: 56 P: 66 NE: 186 QRS: 44 QRSD: 103 T: 26 QT: 418 QTc: 404 Interpretive Statements Sinus rhythm Ventricular bigeminy Borderline low voltage, extremity leads Electronically Signed On 07-17-2025 9:47:31 PST by Harrison Levi Please click the below link to view image of tracing.
[2025-07-12] MEDS ORDERED: ATROPINE SULF 1 MG/10ml SYR IV PRN ×3 (13:15→21:15)
--- NOTE | 2025-07-12 14:12 | DVHSR ---
APPROVED REPORT EXAM: Two-dimensional and M-mode echocardiogram with Doppler and color Doppler. Blood Pressure: 144/75 mmHg INDICATION Arrhythmia PVC's SVT RISK FACTORS Height: 5' 5", Weight: 192 DIMENSIONS LVDd 5.1 (3.8-5.7cm) LA (2D) 3.8 (1.9-4.0cm) Aortic Root 4.0 (2.0-3.7cm) LVDs 3.3 (2.5-4.0cm) LA (MM) (1.9-4.0cm) Aortic Cusp Exc 2.1 (1.5-2.0cm) EF (%) 65.0 (55-70%) Rt. Atrium 3.4 (1.9-4.0cm) Asc. Aorta cm IVSd 1.0 (0.7-1.1cm) RV (D) (1.8-2.4cm) PWd 0.9 (0.7-1.1cm) Mitral Valve Mitral Mitral Stenosis E wave 0.70m/s MV Mean GR. mmHg A wave 0.90m/s MV Peak GR. mmHg E/A ratio 0.8 2D MVA cm2 Aortic Valve Aortic Valve Aortic Stenosis V1 0.90m/s AO Mean GR. 4mmHg V2 1.40m/s AO Peak GR. 8mmHg LVOT Diameter 2.5 (1.8-2.4cm) Doppler BREA 3.15cm2 Pulmonic Valve V2 0.70m/s Tricuspid Valve TR Velocity 2.40m/s RVSP 30mmHg Other Information Quality : Rhythm : PVC's Conclusion lvef 55% normal rv function left atrium enlarged no severe valve abnormalitiy noted
[2025-07-12] MEDS: IOHEXOL 300 MG/ML 100ML BOTTLE IJ ONE (14:57)
--- NOTE | 2025-07-12 17:53 | DVH ---
EXAM: CT CT HEAD NECK WITH CONT CLINICAL HISTORY: s/s of myoclonus, tremors and memory TECHNIQUE: CT angiogram of the head and neck was performed without and with intravenous contrast. 100 ml of omnipaque 350 was administered intravenously. 3D MIP reconstructed images were created and archived on the PACS system. This exam was performed according to our departmental dose optimization program. Up-to-date CT equipment and radiation dose reduction techniques are utilized as appropriate. COMPARISON: CT ANGIO HEAD/NECK on DOS: 09/23/24, MRI BRAIN HEAD WO CONTRAST on DOS: 09/22/24 FINDINGS: CTA head: The ventricles and subarachnoid spaces are normal in size and configuration. Mild patchy low attenuation in the cerebral white matter consistent with nonspecific white matter disease. Chronic appearing lacunar infarcts in the bilateral basal ganglia. The ha white matter interfaces are maintained There is no midline shift or mass effect. There is no evidence of acute intracranial hemorrhage. The basal cisterns are patent. The calvarium is intact. Atretic right A1 segment. Multifocal mild narrowing of the right P2 segment again noted. The distal internal carotid, vertebral, and basilar arteries are patent without focal narrowing or occlusion. The anterior, middle, and posterior cerebral arteries are patent without focal narrowing. No aneurysm or arteriovenous malformation is identified. CTA neck: The aortic arch vessel origins are widely patent. The common carotid and cervical portions of the internal carotid and vertebral arteries are patent without focal narrowing according to NASCET criteria. No aneurysm, AVM, or dissection is identified. Dominant right vertebral artery The cervical soft tissues are unremarkable. The mastoid air cells are well- aerated. There is mild mucosal thickening of the bilateral maxillary sinuses The lung apices are clear. Minor cervical spondylosis. IMPRESSION: 1. No large vessel occlusion, high-grade stenosis, aneurysm, AVM, or dissection in the head or neck 2. Multifocal mild narrowing of the right P2 segment again noted which could be related to athero sclerosis. 3. No acute intracranial abnormality. 4. Mild chronic microvascular ischemic change and chronic appearing bilateral basal ganglia lacunar infarcts.
[2025-07-12] MEDS: CARVEDILOL 3.125 MG TAB PO SCH (21:51)
--- NOTE | 2025-07-12 22:12 | DVHHP2 ---
Past Medical History Past Medical History records reviewed Cardiovascular history : Long history of hypertension with recurrent angina 50% non occlusive disease of RCA - coronary angiogram-2023 and 2014 Premature ventricular beats- assessed by Dr. Higgins and cardiology of [facility] 2. Deep venous thrombosis Recent history of DVT affecting R brachiocephalic vein from angio cath Treated at 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 Milton orthopedist Psychiatric History : PTSD-anxiety mixed with depression Schizoaffective bipolar depression-receives psychotropic medication prescribed by physicians of the [facility] Patient Family History: Alcoholism G8 FATHER Diabetes mellitus G8 MOTHER Eczema G8 FATHER Ischemic heart disease G8 MOTHER Psoriasis G8 MOTHER Allergies: Coded Allergies: Ampicillin (Verified Allergy, Unknown, 10/22/23) Latex (Verified Allergy, Unknown, 10/22/23) Home Meds Active Scripts Metformin Hydrochloride (Metformin Hcl Er) 500 Mg Tab, 1 TAB PO BID for 30 Days, #60 TAB 2 Refills Hold if N/V/Diarrhea DO not drink alcohol- may cause life threatening lactic acidosis Prov:ROSIE JOHNSON MD 09/23/24 Alum & Mag Hydrox-Simethicone (Maalox Plus) 30 Ml Ss, 15 ML GT ACHS, #450 ML 2 Refills Prov:ROSIE JOHNSON MD 10/26/23 Sucralfate (Sucralfate) 1 Gm Tab, 1 GM PO QIDACHS for 30 Days, #120 TAB 1 Refill Prov:ROSIE JOHNSON MD 10/26/23 Pantoprazole Sodium Sesquihydr (Pantoprazole Sodium) 40 Mg Tab, 40 MG PO BID for 45 Days, #90 TAB Prov:ROSIE JOHNSON MD 10/26/23 Valsartan (Valsartan) 160 Mg Tab, 1 TAB PO BID for 30 Days, #60 TAB 2 Refills Hold if SBP <110 Call PMD if angioedema of lips Prov:ROSIE JOHNSON MD 10/26/23 Atorvastatin Calcium (Lipitor) 20 Mg Tab, 20 MG PO DAILY for 90 Days, #90 TAB Hold if calf muscle cramps Prov:ROSIE JOHNSON MD 10/26/23 Apixaban Base (ELIQUIS) 5 Mg Tab, 5 MG PO BID for 30 Days, #60 TAB 2 Refills Hold if internal bleeding Prov:ROSIE JOHNSON MD 10/26/23 Reported Medications Nitroglycerin (NTROSTAT SUBLINGUAL) 0.4 Mg Sl, 0.4 MG SL PRN PRN for FOR CHEST PAIN, TAB *MAY REPEAT EVERY 5 MINUTES X 3 TOTAL IF NO RELIEF, INITIATE ANALGESIC THERAPY. NOTIFY PHYSICIAN *Do not crush. 10/23/23 Clonidine Hydrochloride (Clonidine Hcl) 0.1 Mg Tab, 0.1 MG PO TID PRN for SBP>160, TAB 10/23/23 Quetiapine Fumerate (Seroquel) 50 Mg Tab, 25 MG PO DAILY, TAB 10/23/23 Metoprolol Succinate (Metoprolol Succinate Er) 25 Mg Tab, 1 TAB PO DAILY 10/23/23 Insulin Lispro (Insulin Lispro) 100 Unit/Ml Inj, 100 UNIT IJ UD, INJ 10/23/23 Glipizide (Glipizide) 5 Mg Tab, 5 MG PO QAM, TAB 10/23/23 Fenofibrate (Tricor) 48 Mg Tab, 48 MG PO BID, TAB 10/23/23 Amlodipine Besylate (Amlodipine Besylate) 5 Mg Tab, 1 TAB PO DAILY 10/23/23 Alogliptin Benzoate (Alogliptin) 25 Mg Tab, 25 MG PO DAILY 10/23/23 Current Medications Current Medications Medications (Trade) Dose Ordered Sig/Popeye Route PRN Reason Start Time Stop Time Status Last Admin Insulin Human Lispro (HumaLOG) HS SC 07/12/25 22:00 07/12/25 22:58 Folic Acid 1 mg/ Magnesium Sulfate 8 meq/ Multivitamins 5 ml/Thiamine HCl 100 mg/Sodium Chloride 1,008.2 ml @ 80 mls/hr DAILY@1800 INJ 07/13/25 18:00 07/14/25 06:37 Atropine Sulfate (Atropine Sulfate) 0.4 mg Q1HR PRN IV HEART RATE BELOW 35/SBP <90 07/12/25 13:15 07/12/25 13:24 DC Atropine Sulfate (Atropine Sulfate) 0.4 mg Q1HR PRN IV HEART RATE BELOW 35/SBP <90 07/12/25 13:30 07/12/25 21:18 DC Atropine Sulfate (Atropine Sulfate) 0.4 mg Q1HR PRN IV HEART RATE BELOW 35/SBP <90 07/12/25 21:15 Carvedilol (Coreg Tablet) 6.25 mg Q12HR PO 07/12/25 22:00 Al Hydrox/Mg Hydrox/Simethicone (Maalox Plus) 15 ml ACHS GT 07/13/25 08:00 07/13/25 08:00 Review of Systems Constitutional: Denies easy tiredness, denies fever chills weight loss HEENT: Denies headache/conjunctival/ENT pains or congestion, Denies hoarse voice, hearing or visual deficit Neck: Denies cervical spine local/radicular pains, denies goiters/stridor Denies stiffness spasms, reduced ROM, RS: Denies chest congestion, cough, wheezing, SOB, pleuritic chest pains CVS: Reports angina, irregular heartbeats, Denies SOB, edema, orthopnea, PND GI: Denies loss of appetite, abdominal pains, tenderness, N/V/D, Denies melena, GI bleeding,constipation, : Denies dysuria, flank pains, frequency, hematuria, Denies passing foul odor/cloudy turbid urine, nocturia MS: Denies generalized aches/pains, back pains, spasms, stiffness, Denies radicular pains, denies generalized myalgias/muscle weakness EXTs: Denies edema, rash, open wounds, discoloration, radicular pains NEURO: Recurrent dizziness Denies hypersomnolence, confused mental status, Denies focal weakness or seizures/tremors/myoclonic jerks SKIN: Denies rashes or open ulcerated wound ENDOCRINE: Denies polyuria, polydipsia, denies intolerance to heat and cold HEM/LYMPH: Denies easy tiredness, bruising, lymphadenopathy ALLERGY: Denies allergic reactions Psychiatry: Denies anxiety or depression disorder Otherwise the Review of Systems is Negative as per History & Physical Interview: Yes Vital Signs Vital Signs Date Time Temp Pulse Resp B/P (MAP) Pulse Ox O2 Delivery O2 Flow Rate FiO2 07/13/25 08:00 52 14 95 Room Air* 0 21 07/13/25 08:00 135/71 (92) 07/13/25 07:00 97.8 97.8 SEPSIS Sepsis Screen Physician Orders Admit (07/11/25 23:00) Nitroglycerin Sublingual (Ntrostat Subli (07/11/25 23:00) Morphine Sulfate Injection (07/11/25 23:00) Stat Ekg For Chest Pain (07/11/25 22:46) Notify Md Of Changes From Base (07/11/25 22:46) [employer]ware Replacer For 24 Hours (07/11/25 22:46) Emergency Dysrhythmia Protocol (07/11/25 22:46) Rhythm Strips Once Every Shift (07/11/25 22:46) Oxygen By Nasal Cannula (07/11/25 23:00) Apixaban (Eliquis) (07/12/25 10:00) Pantoprazole Tablet (Protonix Tablet) (07/12/25 10:00) Sucralfate Tab (Carafate Tab) (07/12/25 07:00) Atorvastatin (Lipitor) (07/12/25 10:00) Electrocardigram (07/14/25 08:00) Lorazepam Tablet (Ativan Tablet) (07/11/25 23:15) Valsartan (Diovan) (07/12/25 08:00) Insulin Lispro (Human) (Humalog) (07/12/25 07:00) Insulin Lispro (Human) (Humalog) (07/12/25 22:00) Glucose Blood (Accu-Chek Comfort Curve T (07/12/25 07:00) Ct Head Neck With Cont (07/12/25 08:00) Carotid Duplx W Color Dop (07/12/25 00:01) Chest Xray 1 View (07/11/25 23:35) Echo 2d Mode Cardiac Dop (07/12/25 23:14) Cardiac Diet-2gna,Lofat,Lochol (07/12/25 Breakfast) Pharmacy Clarification: (07/12/25 09:32) Folic Acid... (07/13/25 18:00) Transfer Orders (07/12/25 19:28) Atropine Adult Syr 0.1mg/Ml (Atropine Wu (07/12/25 21:15) Carvedilol Tablet (Coreg Tablet) (07/12/25 22:00) Alum & Mag Hydrox-Simethicone (Maalox Pl (07/13/25 08:00) Brain Head Wo Contrast (07/13/25 21:20) Vital Signs Date Time Temp Pulse Resp B/P (MAP) Pulse Ox O2 Delivery O2 Flow Rate FiO2 07/13/25 08:00 52 14 95 Room Air* 0 21 07/13/25 08:00 61 12 135/71 (92) 95 07/13/25 07:30 56 14 126/78 (94) 94 07/13/25 07:00 97.8 44 12 139/70 (93) 94 97.8 07/13/25 06:30 53 16 139/70 (93) 96 07/13/25 06:00 45 07/13/25 06:00 47 17 124/71 (88) 95 07/13/25 05:30 52 13 132/71 (91) 93 07/13/25 05:00 52 15 123/79 (94) 90 07/13/25 04:30 46 12 123/79 (94) 95 07/13/25 04:00 97.9 54 16 123/79 (94) 95 97.9 07/13/25 04:00 48 07/13/25 03:30 50 12 123/79 (94) 94 07/13/25 03:00 47 10 123/75 (91) 95 07/13/25 02:30 44 15 126/75 (92) 94 07/13/25 02:00 46 07/13/25 02:00 55 15 126/75 (92) 94 07/13/25 01:30 49 12 108/66 (80) 94 07/13/25 01:00 53 12 108/66 (80) 95 07/13/25 00:30 58 12 116/66 (83) 93 07/13/25 00:00 98.2 51 12 116/66 (83) 93 98.2 07/13/25 00:00 36 07/12/25 23:00 46 13 116/66 (83) 94 07/12/25 22:00 35 12 108/61 (77) 93 07/12/25 22:00 45 07/12/25 21:51 38 108/61 07/12/25 21:00 52 16 108/61 (77) 94 07/12/25 20:00 54 12 96 Room Air* 0 21 07/12/25 20:00 98.2 60 16 108/61 (77) 97 98.2 07/12/25 19:00 67 15 108/61 (77) 97 07/12/25 18:00 55 14 129/67 (87) 96 07/12/25 18:00 56 07/12/25 17:00 55 14 119/77 (91) 96 07/12/25 16:00 52 07/12/25 16:00 97.8 63 10 157/80 (105) 96 97.8 07/12/25 15:00 65 14 157/84 (108) 96 07/12/25 14:00 59 13 142/71 (94) 94 07/12/25 14:00 58 07/12/25 13:00 97.7 63 10 154/87 (109) 96 97.7 07/12/25 12:00 56 07/12/25 12:00 55 13 128/71 (90) 95 07/12/25 11:00 64 13 123/56 (78) 93 07/12/25 10:00 69 14 139/89 (106) 96 07/12/25 10:00 68 07/12/25 09:37 50 123/56 07/12/25 09:00 67 9 130/80 (97) 95 07/12/25 08:37 73 133/81 07/12/25 08:00 66 07/12/25 08:00 97.6 66 13 144/75 (98) 95 97.6 07/12/25 08:00 133/81 07/12/25 08:00 70 12 96 Room Air* 0 21 07/12/25 07:00 67 12 144/75 (98) 95 07/12/25 06:00 62 07/12/25 06:00 86 15 123/77 (92) 89 07/12/25 05:00 61 13 127/69 (88) 93 07/12/25 04:00 67 13 95 11/27/25 04:00 67 07/12/25 03:00 67 15 135/73 (93) 95 07/12/25 02:00 63 22 132/72 (92) 93 07/12/25 02:00 63 07/12/25 01:46 65 14 132/72 07/12/25 01:16 70 16 142/72 07/12/25 01:00 73 14 142/74 (96) 97 07/12/25 00:19 74 16 97 Room Air* 0 21 07/12/25 00:19 97.8 74 153/80 (104) 97 97.8 07/12/25 00:01 55 12 153/80 (104) 97 07/12/25 00:00 71 07/11/25 23:59 97.8 68 12 162/71 (101) 96 97.8 Laboratory Tests Test 07/12/25 00:00 07/12/25 07:59 White Blood Count 7.6 10^3/uL (4.4-10.8) 6.5 10^3/uL (4.4-10.8) Medications Medications Dose Ordered Sig/Popeye Route Start Time Stop Time Status Last Admin Dose Admin Al Hydrox/Mg Hydrox/Simethicone 15 ml ACHS GT 07/13/25 08:00 07/13/25 08:00 Results Labs Test 07/13/25 05:48 07/13/25 03:49 07/12/25 07:59 07/12/25 03:50 Range/Units POC Glucose 116 H 70-106 mg/dl Sodium Level 143 136-145 mmol/L Potassium Level 4.1 3.5-5.1 mmol/L Chloride Level 109 H 98-107 mmol/L Carbon Dioxide Level 22 20-31 mmol/L Anion Gap 12 5-15 Blood Urea Nitrogen 10 9-23 mg/dL Creatinine 0.80 0.700-1.30 mg/dL Glomerular Filtration Rate Calc 99 >90 mL/min BUN/Creatinine Ratio 12.5 10.0-20.0 Serum Glucose 101 74-106 mg/dL Calcium Level 9.5 8.7-10.4 mg/dL Magnesium Level 2.2 1.6-2.6 mg/dL Total Bilirubin 0.9 0.2-1.0 mg/dL Aspartate Amino Transferase (AST) 21 13-40 U/L Alanine Aminotransferase (ALT) 20 7-40 U/L Alkaline Phosphatase 61 46-116 U/L Total Protein 6.4 5.7-8.2 g/dL Albumin 4.3 3.2-4.8 g/dL White Blood Count 6.5 4.4-10.8 10^3/uL Red Blood Count 4.93 4.5-5.90 10^6/uL Hemoglobin 15.2 13.5-17.5 g/dL Hematocrit 44.7 41.0-53.0 % Mean Corpuscular Volume 90.7 80.0-100.0 fL Mean Corpuscular Hemoglobin 30.8 28.0-32.0 pg Mean Corpuscular Hemoglobin Concent 33.9 32.0-36.0 g/dL Red Cell Distribution Width 14.4 H 11.8-14.3 % Platelet Count 243 140-450 10^3/uL Mean Platelet Volume 7.8 6.9-10.8 fL Neutrophils (%) (Auto) 60.2 37.0-80.0 % Lymphocytes (%) (Auto) 27.3 10.0-50.0 % Monocytes (%) (Auto) 9.3 0.0-12.0 % Eosinophils (%) (Auto) 2.0 0.0-7.0 % Basophils (%) (Auto) 1.2 0.0-2.0 % Neutrophils # (Auto) 3.9 1.6-8.6 10 ^3/uL Lymphocytes # (Auto) 1.8 0.4-5.4 10 ^3/uL Monocytes # (Auto) 0.6 0-1.3 10 ^3/uL Eosinophils # (Auto) 0.1 0-0.8 10 ^3/uL Basophils # (Auto) 0.1 0-0.2 10 ^3/uL Nucleated Red Blood Cells 0.0 % Triglycerides Level 74 < 150 mg/dL Cholesterol Level 121 < 200 mg/dL LDL Cholesterol 63 < 100 mg/dL HDL Cholesterol 42 40-59 mg/dL Urine Color Colorless Yellow Urine Clarity Clear Clear Urine pH 7.0 5.0-9.0 Urine Specific [place] 1.008 1.001-1.035 Urine Protein Negative Negative Urine Ketones Negative Negative Urine Blood Negative Negative /uL Urine Nitrite Negative Negative Urine Bilirubin Negative Negative Urine Urobilinogen Normal Negative mg/dL Urine Leukocyte Esterase Negative Negative /uL Urine RBC None seen 0 - 3 /hpf Urine Microscopic WBC < 1 0-3 /HPF Urine Squamous Epithelial Cells None seen <5 /hpf Urine Bacteria None seen None Seen /hpf Urine Glucose Normal Normal mg/dL Test 07/12/25 02:39 07/12/25 01:16 07/12/25 00:00 Range/Units Troponin I High Sensitivity 28 </=54 ng/L Prothrombin Time 11.4 9.3-11.8 sec Prothrombin Time INR 1.08 0.9-1.15 Activated Partial Thromboplast Time 28.7 24.5-34.5 SEC D-Dimer, Quantitative < 0.19 0.0-0.49 mg/L FEU Phosphorus Level 3.6 2.4-5.1 mg/dL C-Reactive Protein High Sensitivity 0.06 <1.0 mg/dL Hemoglobin A1c 6.6 H <5.7 % A1C B-Type Natriuretic Peptide 18.85 0-100 pg/mL Vitamin B12 Level 519 211-911 pg/mL Thyroid Stimulating Hormone (TSH) 2.58 0.55-4.78 uIU/mL Microbiology Date/Time Source Procedure Growth Status 07/12/25 00:00 Nose MRSA Screen - Final Complete ROSIE JOHNSON MD Jul 12, 2025 22:12
--- NOTE | 2025-07-12 22:15 | DVHPN2 ---
Progress Note - Dictate Date Seen: Jul 12, 2025 Has the PT tested + for MRSA If YES, has PT been informed?: No Medical Necessity Reason Pt with a Central, PICC or Fol: No Medical Necessity Reason Recurrent dizziness, Recurrent PVCs bigeminy Receiving cardio neuro workup IV hydration for state of hypovolemia Subjective The patient remains symptomatic for recurrent dizziness, palpitation and Myoclonic jerky type movements of RUE on intermittent basis * Telemetry shows signs of bradycardia-heart rate dropped to 30s without block * Atropine order is given on a standby, following to my case discussion with nurse Blanca * Received carotid artery duplex study-unremarkable for significant hemodynamic stenosis * Received CTA head and neck-findings are reviewed with the patient * Requested MRI head to rule out recent CVA Overnight events are reviewed through medical chart and case discussion with patient's assigned RN while making rounds on patient on the day of service vital signs Vital Sign Date Time Temp Pulse Resp B/P (MAP) Pulse Ox O2 Delivery O2 Flow Rate FiO2 07/12/25 18:00 55 14 129/67 (87) 96 07/12/25 16:00 97.8 97.8 07/12/25 08:00 Room Air* 0 21 Total Intake and Output 07/11/25 07/11/25 07/12/25 15:00 23:00 07:00 Intake Total 400 ml Balance 400 ml medications Current Medications Medications Dose Ordered Sig/Popeye Route Start Time Stop Time Status Last Admin Dose Admin Nitroglycerin 0.4 mg Q5MINP PRN SL 07/11/25 23:00 Morphine Sulfate 2 mg Q30M PRN IV 07/11/25 23:00 07/12/25 01:16 Al Hydrox/Mg Hydrox/Simethicone 15 ml ACHS GT 07/12/25 07:00 07/12/25 17:00 Apixaban 5 mg BID PO 07/12/25 10:00 07/12/25 08:36 Atorvastatin Calcium 20 mg DAILY PO 07/12/25 10:00 07/12/25 08:37 Pantoprazole Sodium 40 mg BID PO 07/12/25 10:00 07/12/25 08:37 Sucralfate 1 gm QIDACHS PO 07/12/25 07:00 07/12/25 18:06 Lorazepam 0.5 mg Q6HP PRN PO 07/11/25 23:15 07/12/25 01:32 Valsartan 160 mg BIDBRS PO 07/12/25 08:00 07/12/25 08:00 Insulin Human Lispro AC SC 07/12/25 07:00 07/12/25 11:27 Insulin Human Lispro HS SC 07/12/25 22:00 Diagnostic Test (Pha) 1 strip ACHS 07/12/25 07:00 07/12/25 17:13 Folic Acid 1 mg/ Magnesium Sulfate 8 meq/ Multivitamins 5 ml/Thiamine HCl 100 mg/Sodium Chloride 1,008.2 ml @ 80 mls/hr DAILY@1800 INJ 07/13/25 18:00 07/14/25 06:37 Atropine Sulfate 0.4 mg Q1HR PRN IV 07/12/25 21:15 Carvedilol 6.25 mg Q12HR PO 07/12/25 22:00 objective Physical Exam General appearance: Well-developed, obese built middle-aged white male Awake alert oriented x3 no respiratory distress Head: Normocephalic nontraumatic Eyes: EOM- full, no nystagmus, no diplopia VALENTINO, sclera nonicteric, conjunctive- pale ENT: No congestion, NSL bilateral symmetrical, oral mucosa dry Neck: Supple, carotid upstroke +2, trachea midline, JVD-3 cm, C spine- Full ROM No thyroid or lymph node , no use of sternomastoid muscle Chest: Bilateral symmetrical expansions, L sided Costochondral tenderness Lungs: clear breath sounds all over except reduced at bases CVS: PMI-1 cm medial to L MCL in fifth ICS , S1- S2 NSR no S3 GI: Abdomen soft, obese, bowel sounds normoactive No focal tenderness, no rebound tenderness No hepatosplenomegaly, no mass no hernia , : No CVA tenderness, no bladder mass palpable, genitalia-NE SKIN: Turgor -dry, color pink, no rash, no icterus, No varicosity, no ulcers or wounds EXTs: No edema, color pink, no rash, no ecchymosis distal pulses +2 capillary refill <2 seconds, No open wounds JOINTS: Reduced range of motion at shoulders BACK: No apparent lumbosacral spinal muscle tenderness, LYMPH NODES: No cervical, axillary or inguinal lymph nodes Neuro: Awake alert oriented 4, coherent, Mental status: Affect: anxious, bipolar mood swings, mildly depressed Suicidal ideation: Absent Calculation: Intact Integrity: Well groomed Memory: Lapse in a long-term memory Judgment: impaired illusion/delusions/hallucinations: Absent Thought process: Linear Thought content: Shallow No pronator drift, no focal motor deficit, Changes of peripheral neuropathy Azmest-eo-viaz dysmetria present, DTR +2, Gait-wide, Romberg's positive laboratory and microbiology Laboratory Tests 07/12/25 07:59 Test 07/12/25 07:59 Range/Units Serum Glucose 143 H 74-106 mg/dL Problem List Clinical Impression And Assessment 1. Recurrent dizziness -rule out cerebellar CVA Rule out occlusive carotid artery disease Inadvertent effect of medications Peripheral neuropathy 2. Recurrent palpitations -multiple PVCs, bigeminy trigeminy and ? Paroxysmal SVT 3. Hypovolemia 6. 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 * Significant cardio neuro risk factors such as Fairly well-controlled NIDDM, hypertension, hypercholesterolemia Nonocclusive CAD affecting RCA and obesity. 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 * Significant cardio neuro risk factors such as Fairly well-controlled NIDDM, hypertension, hypercholesterolemia Nonocclusive CAD affecting RCA and obesity. 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 No AVM, no aneurysm -ischemic small-vessel disease The latter finding contributes to his memory loss -all above findings are reviewed with the patient * For bradycardia, metoprolol has been discontinued and replaced by selective beta vicente- carvedilol * IV hydration for state of hypovolemia as well as to keep renal functions intact The patient received cat scan had study with contrast and is high risk from concurrent diabetes and hypertension Plan Change inpatient status from telemetry to [facility] Reviewed findings of 2D echo and carotid artery duplex study Reviewed findings of CTA head and neck with patient Recommend MRI head Continue IV hydration Check CMP Mag level in morning Serial 12 lead EKG and serum troponins Recommend 0.4 mg SL NTG and Ecotrin Continue valsartan and carvedilol Discontinue metoprolol IV morphine for anginal chest pain refractory to NTG Continue Eliquis Accu-Chek q.a.c. and HS Humalog through sliding scale Injection atropine for bradycardia-HR < 36 per minute+ hypotension with systolic BP <90 VTE precautions Update patient The patient and his spouse were well informed by me about 1. Clinical impression, treatment plans, side effects of medications, course of the disease and prognosis 2. All patient's question/ concerns raised by patient are satisfactorily addressed by me Prognosis Guarded Dietary Evaluation Review Recommendations by RD: Decrease Calorie Intake Comments: Recommended intentional weight loss of 50 lbs through ADA 1800 calorie, low-cholesterol, low carbohydrate diet Expected Outcomes/Goals: Intentional weight loss of 5 to 6 lb per month-maximum 50 lbs over one year Through diet and exercise as tolerated To help avoiding complications related to obesity which include but not limited to such as Obesity hypoventilation, hypoxia, cardiac arrhythmias, embolic CVA, Lifelong disability from CVA, PE, sudden Plan discussed with: Patient Critical Care Time(min): 60 Total Time (mins): 60 ROSIE JOHNSON MD Jul 12, 2025 22:15
[2025-07-13] VITALS (36 sets, daily range): BP systolic 108–149; BP diastolic 51–100; PULSE 36–83; RESP 9–17; TEMP 97.6–98.2; O2SAT 90–98
[2025-07-13 04:39] LABS: Alanine Aminotransferase 20 U/L (7-40); Alkaline Phosphatase 61 U/L (46-116); Anion Gap 12 (5-15); BUN/Creatinine Ratio 12.5 (10.0-20.0); Blood Urea Nitrogen 10 mg/dL (9-23); Calcium 9.5 mg/dL (8.7-10.4); Carbon Dioxide 22 mmol/L (20-31); Glucose 101 mg/dL (74-106); Magnesium 2.2 mg/dL (1.6-2.6); Potassium 4.1 mmol/L (3.5-5.1); Sodium 143 mmol/L (136-145); Total Protein 6.4 g/dL (5.7-8.2)
[2025-07-13 04:40] LABS: Albumin 4.3 g/dL (3.2-4.8); Bilirubin, Total 0.9 mg/dL (0.2-1.0)
[2025-07-13 04:42] LABS: Chloride 109 mmol/L (98-107)
[2025-07-13] MEDS: ALUM & MAG HYDROX-SIMETH LIQ(MAALOX) 30 ML GT SCH (08:00)
--- NOTE | 2025-07-13 09:26 | ECG ---
[facility] Test Date: 2025-07-12 Test Time: 12:26:03 Pat Name: IKE ISRAEL Department: Respiratoy Room: [address] [place] [address] Gender: M Caustic Operator: sheryl : 1960 Requested By: ROSIE JOHNSON Order Number: [id number] Reading MD: Harrison Levi Measurements Intervals Golden Rate: 54 P: 116 HI: 191 QRS: 144 QRSD: 104 T: 157 QT: 416 QTc: 395 Interpretive Statements Right and left arm electrode reversal, interpretation assumes no reversal Sinus rhythm Right axis deviation Borderline low voltage, extremity leads Abnormal T, consider ischemia, lateral leads Baseline wander in lead(s) V3 Electronically Signed On 07-17-2025 9:47:25 PST by Harrison Levi Please click the below link to view image of tracing.
--- NOTE | 2025-07-13 11:29 | DVH ---
PROCEDURE: MRI BRAIN HEAD WO CONTRAST INDICATION: dizziness, CVA of cerebellum or basal ganglia EXAM DATE: 07/13/2025 10:46 AM COMPARISON: MRI BRAIN HEAD WO CONTRAST on DOS: 09/22/24 TECHNIQUE: MRI of the brain without intravenous contrast. FINDINGS: Diffusion weighted images of the brain demonstrate no evidence of acute infarction. There is no evidence of acute intracranial hemorrhage, extra-axial collection, mass effect, midline shift, herniation or hydrocephalus. The ventricles, sulci and cisterns appear age appropriate. Scattered T2/FLAIR signal hyperintensities in the periventricular white matter, nonspecific, likely related to chronic small-vessel ischemic disease. There are no signal abnormalities on the susceptibility weighted sequences. The major vascular flow voids are present. The visualized paranasal sinuses and mastoid air cells are clear. The surrounding soft tissues and osseous structures are unremarkable. IMPRESSION: No acute intracranial abnormality Chronic small-vessel ischemic changes
[2025-07-13] MEDS: FOLIC ACID 1 MG, MAGNESIUM SULF SDV 50% 8 MEQ, MULTIPLE VITAMIN 10 ML, THIAMINE INJ 100... INJ SCH (17:23)
--- NOTE | 2025-07-13 20:20 | DVHPN2 ---
Progress Note - Dictate Date Seen: Jul 13, 2025 Has the PT tested + for MRSA If YES, has PT been informed?: No Medical Necessity Reason Pt with a Central, PICC or Fol: No Medical Necessity Reason Recurrent palpitation, chest pains Improvement in recurrent dizziness MRI head evaluation IV hydration and banana bag Subjective The patient reports to have significant improvement in his presenting symptoms of recurrent dizziness, palpitation while noted thumping sensation in chest and Myoclonic jerky type movements of LUE on intermittent basis while receiving MRI of head * Telemetry shows signs of fluctuating bradycardia, to normal heart rate Blood pressure ranges from 120-140/86-90 Continues to show multiple PVCs at less frequent rate * Atropine order is given on a standby, following to my case discussion with nurse Rios * Received cardio neuro workup including MRI head this morning * Reviewed findings of MRI head with patient * Continued on IV banana bag infusion-helps to contain symptoms of myoclonus Overnight events are reviewed through medical chart and case discussion with patient's assigned RN while making rounds on patient on the day of service vital signs Vital Sign Date Time Temp Pulse Resp B/P (MAP) Pulse Ox O2 Delivery O2 Flow Rate FiO2 07/13/25 18:00 63 07/13/25 17:00 10 128/81 (97) 98 07/13/25 16:00 97.6 97.6 07/13/25 08:00 Room Air* 0 21 Total Intake and Output 07/12/25 07/12/25 07/13/25 15:00 23:00 07:00 Intake Total 400 ml 760 ml 350 ml Balance 400 ml 760 ml 350 ml medications Current Medications Medications Dose Ordered Sig/Popeye Route Start Time Stop Time Status Last Admin Dose Admin Nitroglycerin 0.4 mg Q5MINP PRN SL 07/11/25 23:00 Morphine Sulfate 2 mg Q30M PRN IV 07/11/25 23:00 07/12/25 01:16 2 MG Apixaban 5 mg BID PO 07/12/25 10:00 07/13/25 09:30 5 MG Atorvastatin Calcium 20 mg DAILY PO 07/12/25 10:00 07/12/25 08:37 20 MG Pantoprazole Sodium 40 mg BID PO 07/12/25 10:00 07/13/25 09:30 40 MG Sucralfate 1 gm QIDACHS PO 07/12/25 07:00 07/13/25 16:20 1 GM Lorazepam 0.5 mg Q6HP PRN PO 07/11/25 23:15 07/12/25 01:32 0.5 MG Valsartan 160 mg BIDBRS PO 07/12/25 08:00 07/12/25 08:00 160 MG Insulin Human Lispro AC SC 07/12/25 07:00 07/13/25 16:20 177 UNITS Insulin Human Lispro HS SC 07/12/25 22:00 07/12/25 22:58 2 UNITS Diagnostic Test (Pha) 1 strip ACHS 07/12/25 07:00 07/13/25 16:20 1 STRIP Folic Acid 1 mg/ Magnesium Sulfate 8 meq/ Multivitamins 5 ml/Thiamine HCl 100 mg/Sodium Chloride 1,008.2 ml @ 80 mls/hr DAILY@1800 INJ 07/13/25 18:00 07/14/25 06:37 Cancel Atropine Sulfate 0.4 mg Q1HR PRN IV 07/12/25 21:15 Carvedilol 6.25 mg Q12HR PO 07/12/25 22:00 Al Hydrox/Mg Hydrox/Simethicone 15 ml ACHS GT 07/13/25 08:00 07/13/25 16:27 15 ML Folic Acid 1 mg/ Magnesium Sulfate 8 meq/ Multivitamins 10 ml/Thiamine HCl 100 mg/Sodium Chloride 1,013.2 ml @ 80.397 mls/hr DAILY@1800 INJ 07/13/25 18:00 07/14/25 06:37 07/13/25 17:23 80.397 MLS/HR objective Physical Exam General appearance: Well-developed, obese built middle-aged white male Awake alert oriented x3 no respiratory distress Head: Normocephalic nontraumatic Eyes: EOM- full, no nystagmus, no diplopia VALENTINO, sclera nonicteric, conjunctive- pale Eyeball shrunken-0.5-improved ENT: No congestion, NSL bilateral symmetrical, oral mucosa wet Neck: Supple, carotid upstroke +2, trachea R off midline, JVD-3 cm, C spine- Full ROM No thyroid or lymph node , no use of sternomastoid muscle Chest: Bilateral symmetrical expansions, hypoventilation at bases L sided Costochondral tenderness Lungs: clear breath sounds all over except reduced at bases CVS: PMI-1 cm medial to L MCL in fifth ICS , S1- S2 NSR no S3 GI: Abdomen soft, obese, bowel sounds normoactive No focal tenderness, no rebound tenderness No hepatosplenomegaly, no mass no hernia , : No CVA tenderness, no bladder mass palpable, genitalia-NE SKIN: Turgor -dry, color pink, no rash, no icterus, No varicosity, no ulcers or wounds EXTs: No edema, color pink, no rash, no ecchymosis distal pulses +2 capillary refill <2 seconds, No open wounds JOINTS: Reduced range of motion at shoulders BACK: No apparent lumbosacral spinal muscle tenderness, LYMPH NODES: No cervical, axillary or inguinal lymph nodes Neuro: Awake alert oriented 4, coherent, Mental status: Affect: Improvement in anxious, bipolar mood swings, mildly depressed Suicidal ideation: Absent Calculation: Intact Integrity: Well groomed Memory: Lapse in a long-term memory Judgment: impaired illusion/delusions/hallucinations: Absent Thought process: Linear Thought content: Improving No pronator drift, no focal motor deficit, Changes of peripheral neuropathy Hvvwbo-el-eajl dysmetria present, DTR +2, Gait-wide, Romberg's improving laboratory and microbiology Laboratory Tests 07/13/25 03:49 07/12/25 07:59 Test 07/13/25 03:49 Range/Units Serum Glucose 101 74-106 mg/dL PATIENT: IKE ISRAEL ACCT: [id number] UNIT: [id number] : 1960 LOC: [facility] ROOM / BED: [address] [place] [address] AGE / SEX: 65 / M ADM STATUS: ADM IN SERVICE 19 ORDERING PHYSICIAN: ROSIE JOHNSON MD PROCEDURE(s): MBHL - BRAIN HEAD WO CONTRAST REASON: dizziness, CVA of cerebellum or basal ganglia ORDER NUMBER(s): [id number], ACCESSION NUMBER(s): [id number] PROCEDURE: MRI BRAIN HEAD WO CONTRAST INDICATION: dizziness, CVA of cerebellum or basal ganglia EXAM DATE: 07/13/2025 10:46 AM COMPARISON: MRI BRAIN HEAD WO CONTRAST on DOS: 09/22/24 FINDINGS: Diffusion weighted images of the brain demonstrate no evidence of acute infarction. There is no evidence of acute intracranial hemorrhage, extra-axial collection, mass effect, midline shift, herniation or hydrocephalus. The ventricles, sulci and cisterns appear age appropriate. Scattered T2/FLAIR signal hyperintensities in the periventricular white matter, nonspecific, likely related to chronic small-vessel ischemic disease. There are no signal abnormalities on the susceptibility weighted sequences. The major vascular flow voids are present. The visualized paranasal sinuses and mastoid air cells are clear. The surrounding soft tissues and osseous structures are unremarkable. IMPRESSION: No acute intracranial abnormality Chronic small-vessel ischemic changes ATED BY: MARITZA ROSS MD DICTATED DATE/TIME: 07/13/25 1126 Problem List Clinical Impression And Assessment 1. Recurrent dizziness............................................. Improving -Ruled out cerebellar CVA and carotid artery disease Inadvertent effect of medications-metoprolol Peripheral neuropathy 2. Recurrent palpitations....................................... Improving -multiple PVCs, bigeminy trigeminy and ? Paroxysmal SVT 3. Hypovolemia................................................. Being corrected 6. Fairly well-controlled NIDDM antihypertension 2' Diagnosis/Comorbidities Exogenous obesity in adult with current BMI > 30-35 kg/m2 Prior Personal history of alcoholism Assessment/Plan Medical decision making: The patient appears to be recovering from symptom complex of Recurrent dizziness, palpitations, costochondral chest pains Still noted to have a thumping sensation in chest and Myoclonus type jerking activities of LUE while receiving MRI * Significant cardio neuro risk factors such as Fairly well-controlled NIDDM, hypertension, hypercholesterolemia Nonocclusive CAD affecting RCA and obesity. 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 No AVM, no aneurysm -ischemic small-vessel disease The latter finding contributes to his memory loss -all above findings are reviewed with the patient * For bradycardia-heart rate dropped to 30s and patient becomes symptomatic As a result, metoprolol has been discontinued and replaced by selective beta vicente- carvedilol Plan Continue hospital stay at [facility] telemetry Reviewed findings of MRI head with patient Reviewed findings of 2D echo and carotid artery duplex study with patient Reviewed findings of CTA head and neck with patient Continue IV hydration and banana bag infusion Recommend 0.4 mg SL NTG and Ecotrin Continue valsartan Discontinue metoprolol-replace with carvedilol IV morphine for anginal chest pain refractory to NTG Continue Eliquis Accu-Chek q.a.c. and HS Humalog through sliding scale Injection atropine for bradycardia-HR < 36 per minute+ hypotension with systolic BP <90 VTE precautions Update patient The patient and his spouse were well informed by me about 1. Clinical impression, treatment plans, side effects of medications, course of the disease and prognosis 2. All patient's question/ concerns raised by patient are satisfactorily addressed by me Prognosis Fair to guarded Dietary Evaluation Review Recommendations by RD: Decrease Calorie Intake Comments: Recommended intentional weight loss of 50 lbs through ADA 1800 calorie, low-cholesterol, low carbohydrate diet Expected Outcomes/Goals: Intentional weight loss of 5 to 6 lb per month-maximum 50 lbs over one year Through diet and exercise as tolerated To help avoiding complications related to obesity which include but not limited to such as Obesity hypoventilation, hypoxia, cardiac arrhythmias, embolic CVA, Lifelong disability from CVA, PE, sudden Plan discussed with: Patient (Explain my current impressions treatment plans and prognosis, LOS, risk modification, long-term management of obesity, anxiety.) Total Time (mins): 45 ROSIE JOHNSON MD Jul 13, 2025 20:20
[2025-07-13] MEDS: CARVEDILOL 3.125 MG TAB PO SCH (20:30)
[2025-07-14] VITALS (16 sets, daily range): BP systolic 115–145; BP diastolic 67–99; PULSE 56–95; RESP 10–18; TEMP 97.4–98; O2SAT 90–97
--- NOTE | 2025-07-14 05:14 | DVH ---
CHEST RADIOGRAPH Indication: Rule out CHF Technique: Single frontal view of the chest was obtained COMPARISON: XY CHEST XRAY 1 VIEW on DOS: 07/12/25, CT CT ANGIO CHEST CONTRAST on DOS: 09/21/24, XY CHEST TWO VIEWS ROUTINE on DOS: 09/20/24, XY CHEST PORTABLE on DOS: 10/22/23, CT CT ANGIO CHEST CONTRAST on DOS: 10/22/23 FINDINGS: Lines and Tubes: None Lungs: Mild pulmonary vascular congestion, unchanged. Pleura: No effusion.No pneumothorax. Cardiomediastinal contours: Unremarkable Bones: Unremarkable IMPRESSION: Mild pulmonary vascular congestion, unchanged.
[2025-07-14 05:30] LABS: Hematocrit 41.8 % (41.0-53.0); Hemoglobin 14.3 g/dL (13.5-17.5); Mean Corpuscular Hemoglobin 30.6 pg (28.0-32.0); Mean Corpuscular Volume 89.1 fL (80.0-100.0); Nucleated Red Blood Cells % 0.1 %
[2025-07-14 06:04] LABS: Alanine Aminotransferase 19 U/L (7-40); Albumin 4.0 g/dL (3.2-4.8); Alkaline Phosphatase 61 U/L (46-116); Anion Gap 13 (5-15); BUN/Creatinine Ratio 13.4 (10.0-20.0); Blood Urea Nitrogen 11 mg/dL (9-23); Calcium 9.3 mg/dL (8.7-10.4); Carbon Dioxide 22 mmol/L (20-31); Potassium 3.6 mmol/L (3.5-5.1); Sodium 143 mmol/L (136-145); Total Protein 6.3 g/dL (5.7-8.2)
[2025-07-14 06:05] LABS: Bilirubin, Total 0.9 mg/dL (0.2-1.0)
[2025-07-14 06:13] LABS: Chloride 108 mmol/L (98-107); Glucose 108 mg/dL (74-106)
[2025-07-14] MEDS ORDERED: NEBI5TAB10 PO (08:38)
--- NOTE | 2025-07-14 08:47 | DVHDS2 ---
Discharge Summary Date of Admission Jul 11, 2025 at 23:00 Date of Discharge: Jul 14, 2025 Labs/Diagnostic Data: Laboratory Results Test 07/14/25 06:35 07/14/25 04:55 07/13/25 03:49 07/12/25 07:59 POC Glucose 119 mg/dl (70-106) White Blood Count 6.9 10^3/uL (4.4-10.8) Red Blood Count 4.69 10^6/uL (4.5-5.90) Hemoglobin 14.3 g/dL (13.5-17.5) Hematocrit 41.8 % (41.0-53.0) Mean Corpuscular Volume 89.1 fL (80.0-100.0) Mean Corpuscular Hemoglobin 30.6 pg (28.0-32.0) Mean Corpuscular Hemoglobin Concent 34.3 g/dL (32.0-36.0) Red Cell Distribution Width 14.3 % (11.8-14.3) Platelet Count 228 10^3/uL (140-450) Mean Platelet Volume 8.0 fL (6.9-10.8) Neutrophils (%) (Auto) 58.1 % (37.0-80.0) Lymphocytes (%) (Auto) 28.9 % (10.0-50.0) Monocytes (%) (Auto) 10.0 % (0.0-12.0) Eosinophils (%) (Auto) 2.2 % (0.0-7.0) Basophils (%) (Auto) 0.8 % (0.0-2.0) Neutrophils # (Auto) 4.0 10 ^3/uL (1.6-8.6) Lymphocytes # (Auto) 2.0 10 ^3/uL (0.4-5.4) Monocytes # (Auto) 0.7 10 ^3/uL (0-1.3) Eosinophils # (Auto) 0.2 10 ^3/uL (0-0.8) Basophils # (Auto) 0.1 10 ^3/uL (0-0.2) Nucleated Red Blood Cells 0.1 % Sodium Level 143 mmol/L (136-145) Potassium Level 3.6 mmol/L (3.5-5.1) Chloride Level 108 mmol/L (98-107) Carbon Dioxide Level 22 mmol/L (20-31) Anion Gap 13 (5-15) Blood Urea Nitrogen 11 mg/dL (9-23) Creatinine 0.82 mg/dL (0.700-1.30) Glomerular Filtration Rate Calc 98 mL/min (>90) BUN/Creatinine Ratio 13.4 (10.0-20.0) Serum Glucose 108 mg/dL (74-106) Calcium Level 9.3 mg/dL (8.7-10.4) Total Bilirubin 0.9 mg/dL (0.2-1.0) Aspartate Amino Transferase (AST) 17 U/L (13-40) Alanine Aminotransferase (ALT) 19 U/L (7-40) Alkaline Phosphatase 61 U/L (46-116) Total Protein 6.3 g/dL (5.7-8.2) Albumin 4.0 g/dL (3.2-4.8) Magnesium Level 2.2 mg/dL (1.6-2.6) Triglycerides Level 74 mg/dL (< 150) Cholesterol Level 121 mg/dL (< 200) LDL Cholesterol 63 mg/dL (< 100) HDL Cholesterol 42 mg/dL (40-59) Test 07/12/25 03:50 07/12/25 02:39 07/12/25 01:16 07/12/25 00:00 Urine Color Colorless (Yellow) Urine Clarity Clear (Clear) Urine pH 7.0 (5.0-9.0) Urine Specific [place] 1.008 (1.001-1.035) Urine Protein Negative (Negative) Urine Ketones Negative (Negative) Urine Blood Negative /uL (Negative) Urine Nitrite Negative (Negative) Urine Bilirubin Negative (Negative) Urine Urobilinogen Normal mg/dL (Negative) Urine Leukocyte Esterase Negative /uL (Negative) Urine RBC None seen /hpf (0 - 3) Urine Microscopic WBC < 1 /HPF (0-3) Urine Squamous Epithelial Cells None seen /hpf (<5) Urine Bacteria None seen /hpf (None Seen) Urine Glucose Normal mg/dL (Normal) Troponin I High Sensitivity 28 ng/L (</=54) Prothrombin Time 11.4 sec (9.3-11.8) Prothrombin Time INR 1.08 (0.9-1.15) Activated Partial Thromboplast Time 28.7 SEC (24.5-34.5) D-Dimer, Quantitative < 0.19 mg/L FEU (0.0-0.49) Phosphorus Level 3.6 mg/dL (2.4-5.1) C-Reactive Protein High Sensitivity 0.06 mg/dL (<1.0) Hemoglobin A1c 6.6 % A1C (<5.7) B-Type Natriuretic Peptide 18.85 pg/mL (0-100) Vitamin B12 Level 519 pg/mL (211-911) Thyroid Stimulating Hormone (TSH) 2.58 uIU/mL (0.55-4.78) Other Laboratory Tests 07/14/25 04:55 Condition at Discharge: Good Final Diagnosis/Problems List Recurrent dizziness Bilateral basal ganglia lacunar infarct Ventricular PVC, bigeminy and trigeminy Small-vessel disease Discharge Disposition: Home Discharge Instruct/Medications Diet: Consistent carbohydrate, Cardiac 2g Na,low cholest Diet comment: 1800 calorie ADA diet Activity: No Restrictions, As Tolerated Activity comment: Recommended aerobic exercise 10-15 minutes as directed Follow Up/Referral: Dr. Gongora in next five days-07/19/2025 Medications: Please refer to discharge med rec Scheduled Alogliptin Benzoate (Alogliptin), 25 MG PO DAILY, (Reported) Alum & Mag Hydrox-Simethicone (Maalox Plus), 15 ML GT ACHS Amlodipine Besylate (Amlodipine Besylate), 1 TAB PO DAILY, (Reported) Apixaban Base (Eliquis), 5 MG PO BID Atorvastatin Calcium (Lipitor), 20 MG PO DAILY Fenofibrate (Tricor), 48 MG PO BID, (Reported) Glipizide (Glipizide), 5 MG PO QAM, (Reported) Insulin Lispro (Insulin Lispro), 100 UNIT IJ UD, (Reported) Metformin Hydrochloride (Metformin Hcl Er), 1 TAB PO BID Metoprolol Succinate (Metoprolol Succinate Er), 1 TAB PO DAILY, (Reported) Nebivolol Hcl (Bystolic), 1 TAB PO DAILY Pantoprazole Sodium Sesquihydr (Pantoprazole Sodium), 40 MG PO BID Quetiapine Fumerate (Seroquel), 25 MG PO DAILY, (Reported) Sucralfate (Sucralfate), 1 GM PO QIDACHS Valsartan (Valsartan), 1 TAB PO BID Scheduled PRN Clonidine Hydrochloride (Clonidine Hcl), 0.1 MG PO TID PRN for SBP>160, (Reported) Nitroglycerin (Ntrostat Sublingual), 0.4 MG SL PRN PRN for FOR CHEST PAIN, (Reported) Discharge Statement: "Patient was advised to return to the ER or call 911 if any headaches, dizziness, shortness of breath, chest pain, abdominal pain, bleeding, fevers, or worsening of medical condition. Patient was counseled about treatment plan, medications, possible side effects, patientverbalized understanding. All questions were answered to the best of my ability. This discharge took greater then 30 minutes in planning, reviewing documentation, counseling the patient, and discussing with other team members." ASSESSMENT ASSESSMENT Assessment Recurrent dizziness Bilateral basal ganglia lacunar infarct Ventricular PVC, bigeminy and trigeminy Small-vessel disease ROSIE GONGORA MD Jul 14, 2025 08:47
--- NOTE | 2025-07-14 08:47 | DVHPN2 ---
Progress Note - Dictate Date Seen: Jul 14, 2025 Has the PT tested + for MRSA If YES, has PT been informed?: No Medical Necessity Reason Pt with a Central, PICC or Fol: No Medical Necessity Reason Oral replenishment of potassium Full discharge education Discharge patient home today Subjective The patient reports to have significant improvement in his presenting symptoms of recurrent dizziness, palpitation thumping sensation in chest and ? Myoclonus type Jerky movements of upper extremities * Telemetry shows signs of mostly normal sinus rhythm with intermittent Short spell of bradycardia Blood pressure ranges from 120-130/86-90 Continues to show multiple PVCs at quite less frequent rate * Lab exams reflected serum potassium low normal at 3.6 mEq * Recommended oral supplement of potassium * Continued on IV banana bag infusion-helps to contain symptoms of myoclonus * Patient is being discharged home today. Full discharge education is given Overnight events are reviewed through medical chart and case discussion with patient's assigned RN while making rounds on patient on the day of service vital signs Vital Sign Date Time Temp Pulse Resp B/P (MAP) Pulse Ox O2 Delivery O2 Flow Rate FiO2 07/14/25 08:41 136/99 07/14/25 08:00 97.4 65 15 95 97.4 07/13/25 20:00 Room Air* 0 21 Total Intake and Output 07/13/25 07/13/25 07/14/25 14:59 22:59 06:59 Intake Total 920 ml 810 ml Balance 920 ml 810 ml medications Current Medications Medications Dose Ordered Sig/Popeye Route Start Time Stop Time Status Last Admin Dose Admin Nitroglycerin 0.4 mg Q5MINP PRN SL 07/11/25 23:00 Morphine Sulfate 2 mg Q30M PRN IV 07/11/25 23:00 07/12/25 01:16 2 MG Apixaban 5 mg BID PO 07/12/25 10:00 07/13/25 21:46 5 MG Atorvastatin Calcium 20 mg DAILY PO 07/12/25 10:00 07/12/25 08:37 20 MG Pantoprazole Sodium 40 mg BID PO 07/12/25 10:00 07/13/25 21:46 40 MG Sucralfate 1 gm QIDACHS PO 07/12/25 07:00 07/14/25 06:38 1 GM Lorazepam 0.5 mg Q6HP PRN PO 07/11/25 23:15 07/14/25 04:59 0.5 MG Valsartan 160 mg BIDBRS PO 07/12/25 08:00 07/14/25 08:41 160 MG Insulin Human Lispro AC SC 07/12/25 07:00 07/13/25 16:20 177 UNITS Insulin Human Lispro HS SC 07/12/25 22:00 07/13/25 21:46 2 UNITS Diagnostic Test (Pha) 1 strip ACHS 07/12/25 07:00 07/14/25 06:38 1 STRIP Folic Acid 1 mg/ Magnesium Sulfate 8 meq/ Multivitamins 5 ml/Thiamine HCl 100 mg/Sodium Chloride 1,008.2 ml @ 80 mls/hr DAILY@1800 INJ 07/13/25 18:00 07/14/25 06:37 Cancel Atropine Sulfate 0.4 mg Q1HR PRN IV 07/12/25 21:15 Al Hydrox/Mg Hydrox/Simethicone 15 ml ACHS GT 07/13/25 08:00 07/14/25 06:38 15 ML Carvedilol 3.125 mg Q12HR PO 07/13/25 20:30 objective Physical Exam General appearance: Well-developed, obese built middle-aged white male Awake alert oriented x3 no respiratory distress Head: Normocephalic nontraumatic Eyes: EOM- full, no nystagmus, no diplopia VALENTINO, sclera nonicteric, conjunctive- pale Eyeball shrunken-0 ENT: No congestion, NSL bilateral symmetrical, oral mucosa wet Neck: Supple, carotid upstroke +2, trachea R off midline, JVD-3 cm, C spine- Full ROM No thyroid or lymph node , no use of sternomastoid muscle Chest: Bilateral symmetrical expansions, hypoventilation at bases No Costochondral tenderness Lungs: clear breath sounds all over except reduced at bases CVS: PMI-1 cm medial to L MCL in fifth ICS , S1- S2 NSR no S3 GI: Abdomen soft, obese, bowel sounds normoactive No focal tenderness, no rebound tenderness No hepatosplenomegaly, no mass no hernia , : No CVA tenderness, no bladder mass palpable, genitalia-NE SKIN: Turgor -improved to normal, color pink, no rash, no icterus, No varicosity, no ulcers or wounds EXTs: No edema, color pink, no rash, no ecchymosis distal pulses +2 capillary refill <2 seconds, No open wounds JOINTS: Reduced range of motion at shoulders BACK: No apparent lumbosacral spinal muscle tenderness, LYMPH NODES: No cervical, axillary or inguinal lymph nodes Neuro: Awake alert oriented 4, coherent, Mental status: Affect: Significant Improvement in anxiety Suicidal ideation: Absent Calculation: Intact Integrity: Well groomed Memory: Improvement in long-term memory lapses Judgment: Improved illusion/delusions/hallucinations: Absent Thought process: Linear Thought content: Improving No pronator drift, no focal motor deficit, Changes of peripheral neuropathy [id number] dysmetria absent, DTR +2, Gait-steady, Romberg's improving laboratory and microbiology Laboratory Tests 07/14/25 04:55 Test 07/14/25 04:55 Range/Units Serum Glucose 108 H 74-106 mg/dL Problem List Clinical Impression And Assessment 1. Recurrent dizziness............................................. Improved -Ruled out cerebellar CVA and carotid artery disease Inadvertent effect of medications-metoprolol Peripheral neuropathy 2. Recurrent palpitations....................................... Improved -multiple PVCs, bigeminy trigeminy and ? Paroxysmal SVT 3. Hypovolemia................................................. corrected 6. Fairly well-controlled NIDDM antihypertension 2' Diagnosis/Comorbidities Exogenous obesity in adult with current BMI > 30-35 kg/m2 Prior Personal history of alcoholism Assessment/Plan Medical decision making: The patient appears to have significantly recovered from multiple s/s complex of Recurrent dizziness, palpitations, costochondral chest pains and myoclonus type jerking activities of upper extremities * So far cardio neuro workup reflected Serial EKGs enzymes unremarkable for acute OK 2 D echo reflected LH, EF 55% * Carotid artery duplex study unremarkable for hemodynamic stenosis * CTA angio head/neck-abnormally remarkable for - bilateral basal ganglia lacunar infarct (old) -abnormality of P2 branch of [employer] No AVM, no aneurysm -ischemic small-vessel disease The latter finding contributes to his memory loss MRI head unremarkable for acute CVA, ICH but Small-vessel ischemia affecting white matter * Telemetry shows normal sinus rhythm with less frequent PVCs bigeminy, infrequent PAC with most importantly no occurrence of SVT in past 48 hrs * all above findings are reviewed with the patient and his Kay Recommended patient to maintain hydration, normal electrolyte Recommended nebivolol place of metoprolol Recommended lorazepam MVI and primidone Treatment Plans As Of Today Discharge patient home today Reconciled discharge medications Replenish oral xsokrmarn-A-Att 20 mEq single dose Reviewed findings of MRI head with patient Reviewed findings of 2D echo and carotid artery duplex study with patient Reviewed findings of CTA head and neck with patient Discontinue IV hydration and banana bag infusion Recommend 0.4 mg SL NTG and Ecotrin Recommended nebivolol Continue Eliquis Accu-Chek q.a.c. and HS Humalog through sliding scale VTE precautions Update patient The patient and his spouse were well informed by me about 1. Clinical impression, treatment plans, side effects of medications, course of the disease and fair prognosis 2. All patient's question/ concerns raised by patient are satisfactorily addressed by me Prognosis Fair Dietary Evaluation Review Recommendations by RD: Decrease Calorie Intake Comments: Recommended intentional weight loss of 50 lbs through ADA 1800 calorie, low-cholesterol, low carbohydrate diet Expected Outcomes/Goals: Intentional weight loss of 5 to 6 lb per month-maximum 50 lbs over one year Through diet and exercise as tolerated To help avoiding complications related to obesity which include but not limited to such as Obesity hypoventilation, hypoxia, cardiac arrhythmias, embolic CVA, Lifelong disability from CVA, PE, sudden Plan discussed with: Patient, Spouse Total Time (mins): 60 ROSIE JOHNSON MD Jul 14, 2025 08:47
[2025-07-14] MEDS: POTASSIUM CHL 20 Meq TABLET PO ONE (09:31)
== END 2025-07-14 10:20 | disposition home or self-care (01) | DRG 308 ==
LOC: DOU 23:00
PROVIDERS: ADMIT Specialist; ATTEND Specialist
DX: I49.3 Ventricular premature depolarization (principal); I63.81 Other cerebral infarction due to occlusion or stenosis of small artery; E66.2 Morbid (severe) obesity with alveolar hypoventilation; G25.3 Myoclonus; Z79.01 Long term (current) use of anticoagulants; E11.9 Type 2 diabetes mellitus without complications; J44.9 Chronic obstructive pulmonary disease, unspecified; I10 Essential (primary) hypertension; F31.9 Bipolar disorder, unspecified; F10.20 Alcohol dependence, uncomplicated; R42 Dizziness and giddiness; E86.1 Hypovolemia; I25.10 Atherosclerotic heart disease of native coronary artery without angina pectoris; F43.10 Post-traumatic stress disorder, unspecified; G62.0 Drug-induced polyneuropathy; E78.00 Pure hypercholesterolemia, unspecified; F17.200 Nicotine dependence, unspecified, uncomplicated; F41.9 Anxiety disorder, unspecified; K21.9 Gastro-esophageal reflux disease without esophagitis; R00.8 Other abnormalities of heart beat; Z91.040 Latex allergy status; Z88.0 Allergy status to penicillin; Z86.73 Personal history of transient ischemic attack (TIA), and cerebral infarction without residual deficits; Z79.4 Long term (current) use of insulin; Z79.84 Long term (current) use of oral hypoglycemic drugs; Z86.711 Personal history of pulmonary embolism; Z86.718 Personal history of other venous thrombosis and embolism; Z68.32 Body mass index [BMI] 32.0-32.9, adult; Y90.9 Presence of alcohol in blood, level not specified
CPT/HCPCS: 36415; 70460; 70491; 70551; 71045; 80053; 80061; 81001; 82607; 82962; 83036; 83735; 83880; 84100; 84443; 84484; 85025; 85379; 85610; 85730; 86141; 87081; 93005; 93306; 93886; G0378; J1815